=== PATIENT | female | born 1945 | race Caucasian/White ===

== ENCOUNTER → 2019-04-02 | Outpatient (CLI) | payer MEDICARE, OTHER ==
--- NOTE | 2019-04-02 08:59 | Diagnostic Imaging Report ---
Indication: Followup pneumonia. Time of exam: 8:45 AM Correlation is made with prior study 10/28/2013. The heart size is stable. There is a rounded density in the right upper lobe. This most likely represents granuloma seen on prior outside CT chest studies. There is some residual infiltrate in the left base as well small left effusion. Right lung is clear of acute infiltrates. There is o pneumothorax. Impression: Mild left basilar infiltrate and small left effusion. Dictated by: Dictated on workstation # [id number]
== END ==
LOC: RAD 08:33
PROVIDERS: ATTEND Nurse Practitioner Family
DX: J90 Pleural effusion, not elsewhere classified (principal); R91.8 Other nonspecific abnormal finding of lung field
CPT/HCPCS: 71046

== ENCOUNTER 2019-04-16 13:50 | Inpatient (IN) | payer MEDICARE, OTHER ==
[2019-04-16] VITALS (8 sets, daily range): BP systolic 104–138; BP diastolic 49–75
[~2019-04-16] VITALS: Ht 170.2 cm; Wt 76.5 kg
--- OUTSIDE RECORDS SUMMARY | 2019-04-16 13:57 | XMS REPORT | CCD ---
Author Author KYLER GALVIN Organization Unknown Address [address] [facility] [address] [place] [address] Care Team Providers Care Sustainable Systems Analyst Name Role Phone DIXIE BAEZ MD Attphys Allergies Allergy Code Allergy Type Reaction Status No Known Drug Allergies 0 Drug allergy Active Active Medications Unknown or Not Available. Problems Unknown or Not Available. Procedures Procedure Code Procedure Type Date Extracapsular cataract extraction, insertion of intraocular lens prosthesi 87977 CPT 07/02/2016 Results Unknown or Not Available. Function Status Unknown or Not Available. History of Immunizations Unknown or Not Available. Plan of Treatment Unknown or Not Available. Social History Smoking Status Code Start Date End Date Never smoker [id number] Vital Signs Unknown or Not Available. Function Status Unknown or Not Available. Goals Unknown or Not Available. ASSESSMENTS Unknown or Not Available. Health Concerns Section Unknown or Not Available.
--- OUTSIDE RECORDS SUMMARY | 2019-04-16 13:57 | XMS REPORT | CCD ---
Author Author KYLER GALVIN Organization Unknown Address [address] [facility] [place] [address] Care Team Providers Care Director Of Food And Beverage Services Name Role Phone SHARRI COELHO DO Attphys Allergies Allergy Code Allergy Type Reaction Status No Known Drug Allergies 0 Drug allergy Active Active Medications Unknown or Not Available. Problems Unknown or Not Available. Procedures Procedure Code Procedure Type Date THORACIC SPINE 3 VIEW (W/SWIMMERS) [id number] SNOMED CT 05/27/2017 Results Unknown or Not Available. Encounters Encounter Diagnosis Diagnosis Code Start Date Muscle spasm of back [id number] 05/27/2017 Function Status Unknown or Not Available. History of Immunizations Immunization Code Date Influenza, high dose seasonal 135 07/27/2015 Influenza, high dose seasonal 135 07/04/2016 Influenza, high dose seasonal 135 06/17/2017 Plan of Treatment Unknown or Not Available. Social History Smoking Status Code Start Date End Date Never smoker [id number] Vital Signs Unknown or Not Available. Function Status Unknown or Not Available. Goals Unknown or Not Available. ASSESSMENTS Unknown or Not Available. Health Concerns Section Unknown or Not Available.
--- OUTSIDE RECORDS SUMMARY | 2019-04-16 13:58 | XMS REPORT ---
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 Role Phone Arielle Gomez PCP Melisa Ball PreferredProvider Allergies and Adverse Reactions Name Reaction Notes No known drug allergy Plan of Treatment Planned Activity Comments Planned Date Planned Time Plan/Goal US SOFT TISSUES HEAD AND NECK 01/13/2018 12:[address] NECK SOFT TISSUE W/CONTRAST 01/13/2018 12:[address] ABD AND PELVIS W/CONTRAST 06/25/2018 12:00 AM Medications Active Name Start Date Estimated Completion Date SIG Comments red yeast rice 600 mg oral tablet berberine 300 mg twice daily intestinal sooth and build three times a day n magnesium 250 mg oral tablet take 1 tablet by oral route 4 times a day gabapentin 300 mg oral capsule 09/22/2018 TAKE 1 CAPSULE BY ORAL ROUTE 3 TIMES A DAY FOR 90 DAYS pantoprazole 40 mg oral tablet,delayed release (DR/EC) 01/05/2019 TAKE 1 TABLET (40 MG) BY ORAL ROUTE 2 TIMES PER DAY FOR 30 DAYS diclofenac sodium 75 mg oral tablet,delayed release (DR/EC) 01/26/2019 TAKE 1 TABLET (75 MG) BY ORAL ROUTE 2 TIMES PER DAY FOR 30 DAYS ProAir HFA 90 mcg/actuation inhalation HFA aerosol inhaler 03/25/2019 inhale 1 puff (90 mcg) by inhalation route every 6 hours as needed atorvastatin 40 mg oral tablet 04/03/2019 TAKE 1 TABLET (40 MG) BY ORAL ROUTE ONCE DAILY AT BEDTIME FOR 90 DAYS hydrochlorothiazide 25 mg oral tablet 04/03/2019 TAKE 1 TABLET (25 MG) BY ORAL ROUTE ONCE DAILY hydrocodone-acetaminophen 5-325 mg oral tablet 04/15/2019 take 1 tablet by oral route every 6 hours as needed for pain Name Start Date Expiration Date SIG Comments Requip 0.5 mg oral tablet 01/17/2016 02/16/2016 take 1-2 tablets by oral route once a day (at bedtime) for 30 days cyclobenzaprine 10 mg oral tablet 12/11/2016 take 1 tablet by oral route once a day (at bedtime) hydrocodone-acetaminophen 5-325 mg oral tablet 12/11/2016 take 1 tablet by oral route every 6 hours as needed for pain clindamycin HCl 300 mg oral capsule 01/14/2018 01/21/2018 take 1 capsule (300 mg) by oral route every 6 hours for 7 days clindamycin HCl 300 mg oral capsule 03/25/2018 04/01/2018 take 1 capsule (300 mg) by oral route every 6 hours for 7 days terbinafine HCl 250 mg oral tablet 04/11/2018 07/10/2018 take 1 tablet (250 mg) by oral route once daily for 30 days mupirocin 2 % topical ointment 01/05/2019 apply a small amount to the affected area by topical route 3 times per day Bactrim DS 800-160 mg oral tablet 01/05/2019 01/12/2019 take 1 tablet by oral route every 12 hours for 7 days Levaquin 500 mg oral tablet 03/25/2019 take 1 tablet (500 mg) by oral route once daily for day 1 then 250mg daily x6 days Discontinued Name Start Date Discontinued Date SIG Comments meloxicam 15 mg oral tablet take 1 tablet (15 mg) by oral route once daily atorvastatin 10 mg oral tablet 12/30/2015 take 1 tablet (10 mg) by oral route once daily pramipexole 0.125 mg oral tablet 10/19/2015 12/30/2015 3 TABS PO NIGHTLY,X30 DAYS Lipitor 40 mg oral tablet 01/05/2016 take 1 tablet (40 mg) by oral route once daily meloxicam 15 mg oral tablet 01/30/2016 1 TAB PO DAILY Lipitor 40 mg oral tablet 06/08/2016 TAKE 1 TABLET (40 MG) BY ORAL ROUTE ONCE DAILY atenolol 25 mg oral tablet 10/01/2016 03/08/2017 TAKE 1 TABLET (25 MG) BY ORAL ROUTE ONCE DAILY lidocaine 5 % topical adhesive patch,medicated 12/24/2016 04/05/2017 apply 1 patch by transdermal route once daily (May wear up to 12hours.) Lipitor 40 mg oral tablet 03/04/2017 06/25/2018 TAKE 1 TABLET (40 MG) BY ORAL ROUTE ONCE DAILY she does not take a stain anymore phentermine 37.5 mg oral tablet 03/08/2017 04/05/2017 take one-half tablet (18.75 mg) by oral route once daily before breakfast atenolol 25 mg oral tablet 03/22/2017 04/05/2017 TAKE 1 TABLET (25 MG) BY ORAL ROUTE ONCE DAILY low bp, low HR meloxicam 15 mg oral tablet 04/02/2017 11/05/2017 1 TAB PO DAILY baclofen 10 mg oral tablet 07/08/2017 12/20/2017 take 1 tablet by oral route daily as needed Xanax 0.25 mg oral tablet 09/03/2017 12/20/2017 take 1 tablet by oral route BID PRN metformin 500 mg oral tablet 12/20/2017 01/13/2018 TAKE 1 TABLET (500 MG) BY ORAL ROUTE 2 TIMES PER DAY WITH MORNING AND EVENING MEALS FOR 30 DAYS Zetia 10 mg oral tablet 01/02/2019 03/25/2019 TAKE 1 TABLET (10 MG) BY ORAL ROUTE ONCE DAILY FOR 90 DAYS Problem List Description Status Onset Hypertension Active 12/30/2015 Type 2 diabetes mellitus without complication Active 01/06/2016 Hyperlipidemia, unspecified Active 01/06/2016 Arthritis Active 06/19/2016 Neuropathy Active 06/19/2016 Mixed hyperlipidemia Active 04/05/2017 Essential hypertension Active 04/05/2017 Vital Signs Date Time BP-Sys(mm[Hg] BP-Eden(mm[Hg]) HR(bpm) RR(rpm) Temp WT HT HC BMI BSA BMI Percentile O2 Sat(%) 04/15/2019 5:05:00 PM 140 mmHg 60 mmHg 70 bpm 18 rpm 98.1 F 167.375 lbs 67 in 26.2144 kg/m 1.8944 m 97 % 03/25/2019 1:20:00 PM 132 mmHg 72 mmHg 58 bpm 18 rpm 98.1 F 169 lbs 67 in 26.47 kg/m2 1.90 m2 96 % 01/05/2019 9:36:00 AM 120 mmHg 60 mmHg 60 bpm 18 rpm 98.2 F 176 lbs 67 in 27.5652 kg/m 1.9426 m 96 % 12/22/2018 10:02:00 AM 120 mmHg 52 mmHg 50 bpm 18 rpm 97.7 F 176.125 lbs 67 in 27.58 kg/m2 1.94 m2 99 % 10/09/2018 10:13:00 AM 130 mmHg 72 mmHg 57 bpm 18 rpm 97.7 F 176 lbs 67 in 27.5652 kg/m 1.9426 m 97 % 07/25/2018 10:55:00 AM 132 mmHg 76 mmHg 48 bpm 18 rpm 97.4 F 174 lbs 67 in 27.25 kg/m2 1.93 m2 97 % 06/25/2018 11:36:00 AM 135 mmHg 76 mmHg 63 bpm 18 rpm 98.1 F 171.125 lbs 67 in 26.8017 kg/m 1.9156 m 95 % 04/11/2018 11:08:00 AM 126 mmHg 72 mmHg 53 bpm 18 rpm 97.7 F 169 lbs 67 in 26.47 kg/m2 1.90 m2 97 % 03/28/2018 1:55:00 PM 177 mmHg 82 mmHg 48 bpm 18 rpm 97.5 F 172.25 lbs 67 in 26.9779 kg/m 1.9218 m 97 % 03/25/2018 8:07:00 AM 121 mmHg 62 mmHg 52 bpm 18 rpm 97.9 F 172.25 lbs 67 in 26.98 kg/m2 1.92 m2 97 % 01/14/2018 10:05:00 AM 136 mmHg 74 mmHg 54 bpm 18 rpm 98.9 F 171 lbs 67 in 26.7821 kg/m 1.9149 m 96 % 01/13/2018 1:28:00 PM 126 mmHg 68 mmHg 63 bpm 18 rpm 97.7 F 171.375 lbs 67 in 26.84 kg/m2 1.92 m2 96 % 12/20/2017 8:06:00 AM 134 mmHg 82 mmHg 51 bpm 16 rpm 96.6 F 174.125 lbs 67 in 27.2716 kg/m 1.9323 m 95 % 10/17/2017 9:26:00 AM 124 mmHg 70 mmHg 66 bpm 18 rpm 97.2 F 175 lbs 67 in 27.41 kg/m2 1.94 m2 97 % 09/03/2017 1:13:00 PM 132 mmHg 68 mmHg 58 bpm 16 rpm 97.6 F 173 lbs 67 in 27.0954 kg/m 1.926 m 96 % 06/04/2017 9:01:00 AM 121 mmHg 84 mmHg 55 bpm 16 rpm 97.3 F 171.375 lbs 67 in 26.84 kg/m2 1.92 m2 97 % 04/05/2017 9:32:00 AM 134 mmHg 70 mmHg 79 bpm 18 rpm 97.6 F 168.25 lbs 67 in 26.3514 kg/m 1.8994 m 97 % 03/08/2017 8:55:00 AM 108 mmHg 70 mmHg 46 bpm 16 rpm 96.8 F 169 lbs 67 in 26.47 kg/m2 1.90 m2 97 % 12/24/2016 8:56:00 AM 120 mmHg 70 mmHg 52 bpm 18 rpm 97 F 172.375 lbs 67 in 26.9975 kg/m 1.9225 m 96 % 12/11/2016 2:35:00 PM 132 mmHg 62 mmHg 56 bpm 18 rpm 98.4 F 174.125 lbs 67 in 27.27 kg/m2 1.93 m2 96 % 10/08/2016 9:10:00 AM 122 mmHg 64 mmHg 48 bpm 18 rpm 97.9 F 174.5 lbs 67 in 27.3303 kg/m 1.9343 m 96 % 06/19/2016 3:15:00 PM 124 mmHg 62 mmHg 50 bpm 18 rpm 96.1 F 187.25 lbs 67 in 29.33 kg/m2 2.00 m2 96 % 02/06/2016 2:13:00 PM 124 mmHg 64 mmHg 83 bpm 18 rpm 97.8 F 191.5 lbs 67 in 29.9928 kg/m 2.0264 m 97 % 01/05/2016 2:09:00 PM 130 mmHg 68 mmHg 62 bpm 97 F 193 lbs 67 in 30.23 kg/m2 2.03 m2 95 % 01/02/2016 10:38:00 AM 134 mmHg 70 mmHg 60 bpm 16 rpm 98.2 F 193 lbs 67 in 30.2278 kg/m 2.0343 m 96 % 12/30/2015 8:47:00 AM 124 mmHg 76 mmHg 57 bpm 17 rpm 97.4 F 194 lbs 67 in 30.38 kg/m2 2.04 m2 97 % 07/25/2015 2:07:00 PM 134 mmHg 78 mmHg 58 bpm 18 rpm 98.1 F 192 lbs 97 % 03/11/2015 9:09:00 AM 128 mmHg 62 mmHg 48 bpm 20 rpm 97.8 F 190 lbs 67 in 29.76 kg/m2 2.0184 m 95 % 02/14/2015 10:47:00 AM 138 mmHg 62 mmHg 48 bpm 18 rpm 98.3 F 187.4 lbs 67 in 29.3507 kg/m 2.00 m2 94 % 11/25/2014 9:58:00 AM 130 mmHg 90 mmHg 60 bpm 16 rpm 96.5 F 192.125 lbs 67 in 30.09 kg/m2 2.0297 m 96 % Social History Name Description Comments Tobacco Former smoker 07/25/2018 - 02/06/2016 - 20 years Alcohol Light History of Procedures Date Ordered Description Order Status 01/02/2016 12:00 AM MAMMOGRAM BOTH BREASTS Reviewed 12/30/2015 12:00 AM COMPLETE CBC W/AUTO DIFF WBC Reviewed 12/30/2015 12:00 AM COMPREHEN METABOLIC PANEL Reviewed 12/30/2015 12:00 AM LIPID PANEL Reviewed 12/30/2015 12:00 AM ASSAY THYROID STIM HORMONE Reviewed 01/02/2016 12:00 AM GLYCOSYLATED HEMOGLOBIN TEST Reviewed 02/06/2016 12:00 AM Diabetic Education Consult Reviewed 05/14/2016 12:00 AM GLYCOSYLATED HEMOGLOBIN TEST Reviewed 05/14/2016 12:00 AM LIPID PANEL Reviewed 05/14/2016 12:00 AM COMPREHEN METABOLIC PANEL Reviewed 10/08/2016 12:00 AM RADEX HAND MINIMUM 3 VIEWS Reviewed 12/11/2016 12:00 AM Toradol 60 Mg Injection Reviewed 12/24/2016 12:00 AM CYTOPATH C/V THIN LAYER Reviewed 12/24/2016 12:00 AM Pap Specimen Handling - Medicare Reviewed 12/24/2016 12:00 AM MAMMOGRAM BOTH BREASTS Reviewed 12/24/2016 12:00 AM DXA BONE DENSITY AXIAL Reviewed 04/05/2017 12:00 AM COMPLETE CBC W/AUTO DIFF WBC Reviewed 04/05/2017 12:00 AM COMPREHEN METABOLIC PANEL Reviewed 04/05/2017 12:00 AM LIPID PANEL Reviewed 06/04/2017 12:00 AM Toradol 60 Mg Injection Reviewed 10/17/2017 12:00 AM Physical Therapy Consult Reviewed 12/20/2017 12:00 AM MAMMOGRAPHY SCREENING, BILATERAL Reviewed 01/13/2018 12:00 AM COMPLETE CBC W/AUTO DIFF WBC Reviewed 01/13/2018 12:00 AM COMPREHEN METABOLIC PANEL Reviewed 01/13/2018 12:00 AM C-REACTIVE PROTEIN Reviewed 01/13/2018 12:[address] MAXILLOFACIAL W/DYE Reviewed 03/28/2018 12:00 AM COMPLETE CBC W/AUTO DIFF WBC Reviewed 03/28/2018 12:00 AM METABOLIC PANEL TOTAL CA Reviewed 03/28/2018 12:00 AM ASSAY OF LACTIC ACID Reviewed 06/25/2018 12:00 AM LIPID PANEL Reviewed 06/25/2018 12:00 AM GLYCOSYLATED HEMOGLOBIN TEST Reviewed 06/25/2018 12:00 AM COMPREHEN METABOLIC PANEL Reviewed 12/22/2018 12:00 AM COMPREHEN METABOLIC PANEL Returned 12/22/2018 12:00 AM LIPID PANEL Returned 12/22/2018 12:00 AM MAMMOGRAPHY SCREENING, BILATERAL Returned 12/22/2018 12:00 AM DXA BONE DENSITY AXIAL Returned 03/25/2019 12:00 AM COMPLETE CBC W/AUTO DIFF WBC Returned 03/25/2019 12:00 AM COMPREHEN METABOLIC PANEL Returned 03/25/2019 12:00 AM C-REACTIVE PROTEIN Returned 03/25/2019 12:00 AM CHEST X-RAY 2VW FRONTAL&LATL Returned 03/25/2019 12:00 AM URINALYSIS AUTO W/SCOPE Returned 04/15/2019 12:00 AM THER/PROPH/DIAG INJ SC/IM Reviewed 11/25/2014 12:00 AM Orthopedic Consult Reviewed 02/14/2015 12:00 AM STREP A ASSAY W/OPTIC Reviewed 02/14/2015 12:00 AM CULTURE SCREEN ONLY Reviewed 03/11/2015 12:00 AM COMPREHEN METABOLIC PANEL Reviewed 03/11/2015 12:00 AM LIPID PANEL Reviewed 03/11/2015 12:00 AM COMPLETE CBC W/AUTO DIFF WBC Reviewed Results Summary Date and Description Results 02/14/2015 1:32 PM STREP SCREEN NEGATIVE 03/11/2015 9:50 AM WBC 7.9 RBC 4.49 HGB 14.10 g/dLHCT 41.90 %MCV 93.0 fLMCH 31.40 pgMCHC 33.70 g/dLRDW SD 47 RDW CV 13.80 %MPV 10.50 fLPLT 237 NRBC# 0.00 NRBC% 0.0 %NEUT 51.10 %%LYMP 39.70 %%MONO 5.20 %%EOS 3.20 %%BASO 0.80 %#NEUT 4.01 #LYMP 3.12 #MONO 0.41 #EOS 0.25 #BASO 0.06 MANUAL DIFF NOT IND GLUCOSE 107.0 mg/dLSODIUM 143.0 mmol/LPOTASSIUM 3.90 mmol/LCHLORIDE 102.0 mmol/LCO2 28.0 mmol/LBUN 13.0 mg/dLCREATININE 0.80 mg/dLSGOT/AST 28.0 IU/LSGPT/ALT 53.0 IU/LALK PHOS 25.0 IU/LTOTAL PROTEIN 6.70 g/dLALBUMIN 4.30 g/dLTOTAL BILI 0.80 mg/dLCALCIUM 9.80 mg/dLAGE 69 GFR NonAA 72 GFR AA 87 eGFR >60 mL/min/1.73 m2eGFR AA* >60 TRIGLYCERIDES 201.0 mg/dLCHOLESTEROL 142.0 mg/dLHDL 48.0 mg/dLTOT CHOL/HDL 3.0 LDL (CALC) 54.0 mg/dL 01/02/2016 9:25 AM WBC 7.4 RBC 4.67 HGB 14.20 g/dLHCT 42.50 %MCV 91.0 fLMCH 30.40 pgMCHC 33.40 g/dLRDW SD 45 RDW CV 13.60 %MPV 10.20 fLPLT 251 NRBC# 0.00 NRBC% 0.0 %NEUT 53.0 %%LYMP 38.30 %%MONO 5.0 %%EOS 2.70 %%BASO 0.90 %#NEUT 3.90 #LYMP 2.82 #MONO 0.37 #EOS 0.20 #BASO 0.07 MANUAL DIFF NOT IND TRIGLYCERIDES 286.0 mg/dLCHOLESTEROL 232.0 mg/dLHDL 43.0 mg/dLTOT CHOL/HDL 5.4 LDL (CALC) 132.0 mg/dLGLUCOSE 132.0 mg/dLSODIUM 141.0 mmol/LPOTASSIUM 3.70 mmol/LCHLORIDE 103.0 mmol/LCO2 25.0 mmol/LBUN 19.0 mg/dLCREATININE 0.90 mg/dLSGOT/AST 25.0 IU/LSGPT/ALT 33.0 IU/LALK PHOS 20.0 IU/LTOTAL PROTEIN 6.90 g/dLALBUMIN 4.40 g/dLTOTAL BILI 0.60 mg/dLCALCIUM 9.70 mg/dLAGE 70 GFR NonAA 62 GFR AA 75 eGFR >60 mL/min/1.73 m2eGFR AA* >60 TSH 2.140 uIU/mLHemoglobin A1c 7.30 %Estim. Avg Glu (eAG) 163 05/15/2016 8:30 AM HGB A1C 5.80 %Est Avg Glucose 119.8 mg/dLGLUCOSE 95.0 mg/dLSODIUM 142.0 mmol/LPOTASSIUM 4.20 mmol/LCHLORIDE 102.0 mmol/LCO2 27.0 mmol/LBUN 17.0 mg/dLCREATININE 0.90 mg/dLSGOT/AST 16.0 IU/LSGPT/ALT 24.0 IU/LALK PHOS 27.0 IU/L TOTAL PROTEIN 6.10 g/dLALBUMIN 4.20 g/dLTOTAL BILI 0.60 mg/dLCALCIUM 9.60 mg/dLAGE 70 GFR NonAA 62 GFR AA 75 eGFR >60 mL/min/1.73 m2eGFR AA* >60 TRIGLYCERIDES 195.0 mg/dLCHOLESTEROL 115.0 mg/dLHDL 40.0 mg/dLTOT CHOL/HDL 2.9 LDL (CALC) 36.0 mg/dL 04/18/2017 8:08 AM GLUCOSE 97.0 mg/dLSODIUM 142.0 mmol/LPOTASSIUM 4.20 mmol/LCHLORIDE 104.0 mmol/LCO2 28.0 mmol/LBUN 14.0 mg/dLCREATININE 0.80 mg/dLSGOT/AST 23.0 IU/LSGPT/ALT 39.0 IU/LALK PHOS 27.0 IU/LTOTAL PROTEIN 6.80 g/dLALBUMIN 4.40 g/dLTOTAL BILI 0.50 mg/dLCALCIUM 10.10 mg/dLAGE 71 GFR NonAA 71 GFR AA 86 eGFR >60 mL/min/1.73 m2eGFR AA* >60 TRIGLYCERIDES 158.0 mg/dLCHOLESTEROL 140.0 mg/dLHDL 50.0 mg/dLTOT CHOL/HDL 2.8 LDL (CALC) 58.0 mg/dLWBC 8.4 RBC 4.57 HGB 13.80 g/dLHCT 41.20 %MCV 90.0 fLMCH 30.20 pgMCHC 33.50 g/dLRDW SD 42 RDW CV 12.90 %MPV 10.10 fLPLT 250 NRBC# 0.00 NRBC% 0.0 %NEUT 43.10 %%LYMP 47.30 %%MONO 5.70 %%EOS 2.80 %%BASO 0.90 %#NEUT 3.63 #LYMP 3.99 #MONO 0.48 #EOS 0.24 #BASO 0.08 MANUAL DIFF NOT IND 08/12/2017 12:00 AM Dialated Eye Exam- Diabetic Done 01/13/2018 2:10 PM WBC 11.0 RBC 4.00 HGB 12.60 g/dLHCT 37.80 %MCV 95.0 fLMCH 31.50 pgMCHC 33.30 g/dLRDW SD 46 RDW CV 13.20 %MPV 9.50 fLPLT 255 NRBC# 0.00 NRBC% 0.0 %NEUT 66.60 %%LYMP 24.70 %%MONO 6.0 %%EOS 1.70 %%BASO 0.70 %#NEUT 7.32 #LYMP 2.72 #MONO 0.66 #EOS 0.19 #BASO 0.08 MANUAL DIFF NOT IND C REACTIVE PROTEIN 23.0 mg/LGLUCOSE 95.0 mg/dLSODIUM 141.0 mmol/LPOTASSIUM 3.70 mmol/LCHLORIDE 103.0 mmol/LCO2 26.0 mmol/LBUN 19.0 mg/dLCREATININE 1.0 mg/dLSGOT/AST 15.0 IU/LSGPT/ALT 24.0 IU/LALK PHOS 25.0 IU/LTOTAL PROTEIN 7.0 g/dLALBUMIN 4.40 g/dLTOTAL BILI 0.70 mg/dLCALCIUM 9.70 mg/dLAGE 72 GFR NonAA 55 GFR AA 67 eGFR 55 eGFR AA* >60 03/28/2018 3:10 PM LACTIC ACID 1.3 GLUCOSE 89 SODIUM 140 POTASSIUM 4.5 CHLORIDE 101.0 mmol/LCO2 28 BUN 19.0 mg/dLCREATININE 1.10 mg/dLCALCIUM 10.10 mg/dLAGE 72 GFR NonAA 49 GFR AA 59 eGFR 49 eGFR AA* 59 WBC 9.3 RBC 4.22 HGB 13.0 g/dLHCT 40.20 %MCV 95.0 fLMCH 30.80 pgMCHC 32.30 g/dLRDW SD 45 fLRDW CV 13.0 %MPV 10.20 fLPLT 243 NRBC# 0.00 NRBC% 0.0 %NEUT 63.2 %LYMP 28.8 %MONO 6.6 %EOS 0.8 %BASO 0.4 #NEUT 5.86 #LYMP 2.67 #MONO 0.61 #EOS 0.07 #BASO 0.04 MANUAL DIFF NOT IND 06/27/2018 8:10 AM TRIGLYCERIDES 338 CHOLESTEROL 285.0 mg/dLHDL 47 TOT CHOL/HDL 6.1 LDL (CALC) 170 GLUCOSE 98 SODIUM 141 POTASSIUM 3.8 CHLORIDE 102.0 mmol/LCO2 29 BUN 19.0 mg/dLCREATININE 1.20 mg/dLSGOT/AST 18 SGPT/ALT 23 ALK PHOS 26 TOTAL PROTEIN 7.6 ALBUMIN 4.5 TOTAL BILI 0.5 CALCIUM 10.30 mg/dLAGE 72 GFR NonAA 44 GFR AA 53 eGFR 44 eGFR AA* 53 HGB A1C 5.60 %Est Avg Glucose 114.0 09/10/2018 10:17 AM Falls in last 6 months? No Unsteady or worry about falling? No Fall Risk Assessment Not At Risk History Of Immunizations Not available. History of Past Illness Name Date of Onset Comments Hypertension Sleep apnea with use of continuous positive airway pressure (CPAP) Endometriosis Ulcerative colitis Hypertension 12/30/2015 Type 2 diabetes mellitus without complication 01/06/2016 Hyperlipidemia, unspecified 01/06/2016 Arthritis 06/19/2016 Neuropathy 06/19/2016 Mixed hyperlipidemia 04/05/2017 Essential hypertension 04/05/2017 Hypertension Nov 25 2014 10:04AM Hyperlipidemia Nov 25 2014 10:04AM Hip pain Nov 25 2014 10:04AM Labral tear of hip, degenerative Nov 25 2014 10:04AM Ulcerative colitis Nov 25 2014 10:04AM Sore throat Feb 14 2015 10:48AM Exposure to strep throat Feb 14 2015 10:48AM Essential Hypertension Mar 11 2015 9:13AM Hyperlipidemia Mar 11 2015 9:13AM Bradycardia Mar 11 2015 9:13AM UC (ulcerative colitis) Mar 11 2015 9:13AM Lung mass Mar 11 2015 9:13AM Painful skin lesion Jul 25 2015 2:08PM Skin tag Jul 25 2015 2:08PM Skin tag Jul 25 2015 5:28PM Hypertension Dec 30 2015 8:50AM Restless leg Dec 30 2015 8:50AM FLORINA (obstructive sleep apnea) Dec 30 2015 8:50AM Arthritis Dec 30 2015 8:50AM Fatigue, unspecified type Dec 30 2015 8:50AM Encounter for screening mammogram for breast cancer Jan 02 2016 10:42AM Hyperglycemia Jan 02 2016 12:24PM Type 2 diabetes mellitus without complication Jan 05 2016 2:12PM Hypertension Jan 05 2016 2:12PM Hyperlipidemia, unspecified Jan 05 2016 2:12PM Type 2 diabetes mellitus without complication Feb 06 2016 2:15PM Hypertension May 14 2016 3:20PM Diabetes mellitus May 14 2016 3:20PM Hyperlipemia May 14 2016 3:20PM Type 2 diabetes mellitus without complication Jun 19 2016 3:15PM Arthritis Jun 19 2016 3:15PM Neuropathy Jun 19 2016 3:15PM Hand pain, left Oct 08 2016 9:12AM Acute bilateral thoracic back pain Dec 11 2016 2:38PM Routine gynecological examination Dec 24 2016 8:58AM Encounter for screening mammogram for breast cancer Dec 24 2016 8:58AM Acute midline low back pain without sciatica Dec 24 2016 8:58AM Post menopausal syndrome Dec 24 2016 8:58AM Weight gain Mar 08 2017 8:57AM Arthritis Mar 08 2017 8:57AM Mixed hyperlipidemia Mar 08 2017 8:57AM Essential hypertension Apr 05 2017 9:37AM Type 2 diabetes mellitus without complication Apr 05 2017 9:37AM Mixed hyperlipidemia Apr 05 2017 9:37AM Arthritis Apr 05 2017 9:37AM Neck pain Jun 04 2017 9:03AM Acute right-sided thoracic back pain Jun 04 2017 9:03AM Situational anxiety Sep 03 2017 1:14PM Pain in thoracic spine Oct 17 2017 9:29AM Other chronic pain Oct 17 2017 9:29AM Breast cancer screening Dec 20 2017 8:08AM Left Facial swelling Jan 13 2018 1:29PM Left Jaw pain Jan 13 2018 1:29PM Left Neck swelling Jan 13 2018 1:29PM Left facial swelling Jan 13 2018 2:17PM Left Jaw pain Jan 13 2018 2:17PM Parotitis, acute Jan 14 2018 10:07AM Jaw pain Mar 25 2018 8:09AM Fatigue Mar 28 2018 1:58PM Infection Mar 28 2018 1:58PM Onychomycosis Apr 11 2018 11:15AM Parotitis Mar 28 2018 1:58PM Diabetes mellitus, type II Jun 25 2018 11:47AM Pure hypercholesterolemia Jun 25 2018 11:47AM Essential Hypertension Jun 25 2018 11:47AM Generalized abdominal pain Jun 25 2018 11:47AM Chronic constipation Jul 25 2018 10:57AM Lower abdominal pain Jul 25 2018 10:57AM GERD without esophagitis Oct 09 2018 10:16AM Essential hypertension Oct 09 2018 10:16AM Mixed hyperlipidemia Oct 09 2018 10:16AM Essential hypertension Dec 22 2018 10:04AM Mixed hyperlipidemia Dec 22 2018 10:04AM Neuropathy Dec 22 2018 10:04AM Breast cancer screening Dec 22 2018 10:04AM Menopausal symptoms Dec 22 2018 10:04AM Skin irritation Jan 05 2019 9:38AM Left upper quadrant pain Mar 25 2019 1:23PM Chest pain Mar 25 2019 1:23PM Shortness Of Breath Mar 25 2019 1:23PM Constipation Mar 25 2019 1:23PM Pneumonia Mar 25 2019 1:23PM Pleurisy Apr 15 2019 5:07PM Chest pain Apr 15 2019 5:07PM Payers Insurance Name Company Name Plan Name Plan Number Policy Number Policy Group Number Start Date Medicare RH Medicare RH [id number] N/A [employer] Medicare Supplement [employer] Medicare Supplement [id number] Saturday, 2017 Medicare Part A Medicare Part A [id number] Sunday, 2012 [employer] [id number] Wednesday, 2012 Medicare Part B Medicare Of [place] [id number] N/A Medicare Part A Medicare - Lab/Xray [id number] Sunday, September 16, 2012 Medicare RHC Medicare RHC [id number] N/A [place] [id number] N/A History of Encounters Visit Date Visit Type Provider 04/15/2019 Office visit Arielle Gomez INSTITUTION LIBRARIAN 03/25/2019 Office visit Melisa Ball INSTITUTION LIBRARIAN 01/05/2019 Office visit Melisa Ball INSTITUTION LIBRARIAN 12/22/2018 Office visit Melisa Ball INSTITUTION LIBRARIAN 10/09/2018 Office visit Melisa Ball INSTITUTION LIBRARIAN 10/08/2018 [facility] Tim Jones MD 07/25/[address] Javier Stark MD 06/25/[address] Javier Stark MD 04/11/2018 Office visit Sirena Mendoza INSTITUTION LIBRARIAN 03/28/2018 Office visit Sirena Mendoza INSTITUTION LIBRARIAN 03/25/2018 Office visit Melisa Ball INSTITUTION LIBRARIAN 01/14/2018 Office visit Melisa Ball INSTITUTION LIBRARIAN 01/13/2018 Office visit Melisa Ball INSTITUTION LIBRARIAN 12/20/2017 Office visit Melisa Ball INSTITUTION LIBRARIAN 10/17/2017 Office visit Melisa Walker INSTITUTION LIBRARIAN 09/03/2017 Office visit Melisa Walker INSTITUTION LIBRARIAN 06/04/2017 Office visit Melisa Walker INSTITUTION LIBRARIAN 04/05/2017 Office visit Melisa Walker INSTITUTION LIBRARIAN 03/08/2017 Office visit Melisa Walker INSTITUTION LIBRARIAN 12/24/2016 Office visit 12/24/2016 Office visit Melisa Walker INSTITUTION LIBRARIAN 12/11/2016 Office visit Melisa Walker INSTITUTION LIBRARIAN 10/08/2016 Office visit Melisa Walker INSTITUTION LIBRARIAN 06/19/2016 Office visit Melisa Walker INSTITUTION LIBRARIAN 02/06/2016 Office visit Melisa Walker INSTITUTION LIBRARIAN 01/05/2016 Office visit Melisa Walker INSTITUTION LIBRARIAN 01/02/2016 Office visit 01/02/2016 Office visit Melisa Walker INSTITUTION LIBRARIAN 12/30/2015 Office visit Melisa Quinn INSTITUTION LIBRARIAN 07/25/2015 Office visit Edith Pena INSTITUTION LIBRARIAN 03/11/2015 Office visit Edith Pena INSTITUTION LIBRARIAN 02/14/2015 Office visit Edith Pena INSTITUTION LIBRARIAN 11/25/2014 Office visit Edith Pena INSTITUTION LIBRARIAN
--- OUTSIDE RECORDS SUMMARY | 2019-04-16 13:59 | XMS REPORT ---
Author Author Melisa Ball Organization [facility] Address [address] [place], [place] [id number] Care Team Providers Care Acid Painter Name Role Phone Melisa Ball PCP Melisa Ball PreferredProvider Allergies and Adverse [...] 3 TIMES A DAY FOR 90 DAYS atorvastatin 40 mg oral tablet 10/09/2018 04/07/2019 take 1 tablet (40 mg) by oral route once daily at bedtime for 90 days hydrochlorothiazide 25 mg oral tablet 10/09/2018 TAKE 1 TABLET (25 MG) BY ORAL ROUTE ONCE DAILY mupirocin 2 % topical ointment 01/05/2019 apply a small amount to the affected area by topical route 3 times per day pantoprazole 40 mg oral tablet,delayed release (DR/EC) 01/05/2019 TAKE 1 TABLET (40 MG) BY ORAL ROUTE 2 TIMES PER DAY FOR 30 DAYS diclofenac sodium 75 mg oral tablet,delayed release (DR/EC) 01/26/2019 TAKE 1 TABLET (75 MG) BY ORAL ROUTE 2 TIMES PER DAY FOR 30 DAYS hydrocodone-acetaminophen 5-325 mg oral tablet 03/25/2019 take 1 tablet by oral route every 6 hours as needed for pain Levaquin 500 mg oral tablet 03/25/2019 take 1 tablet (500 mg) by oral route once daily for day 1 then 250mg daily x6 days ProAir HFA 90 mcg/actuation inhalation HFA aerosol inhaler 03/25/2019 inhale 1 puff (90 mcg) by inhalation route every 6 hours as needed Name Start Date Expiration Date SIG Comments [...] oral route once daily for 30 days Bactrim DS 800-160 mg oral tablet 01/05/2019 01/12/2019 take 1 tablet by oral route every 12 hours for 7 days Discontinued Name Start Date Discontinued Date [...] HC BMI BSA BMI Percentile O2 Sat(%) 03/25/2019 1:20:00 PM 132 mmHg 72 mmHg 58 bpm 18 rpm 98.1 F 169 lbs 67 in 26.4689 kg/m 1.9036 m 96 % 01/05/2019 9:36:00 AM 120 mmHg 60 mmHg 60 bpm 18 rpm 98.2 F 176 lbs 67 in 27.57 kg/m2 1.94 m2 96 % 12/22/2018 10:02:00 AM 120 mmHg 52 mmHg 50 bpm 18 rpm 97.7 F 176.125 lbs 67 in 27.5848 kg/m 1.9433 m 99 % 10/09/2018 10:13:00 AM 130 mmHg 72 mmHg 57 bpm 18 rpm 97.7 F 176 lbs 67 in 27.57 kg/m2 1.94 m2 97 % 07/25/2018 10:55:00 AM 132 mmHg 76 mmHg 48 bpm 18 rpm 97.4 F 174 lbs 67 in 27.25 kg/m2 1.9316 m 97 % 06/25/2018 11:36:00 AM 135 mmHg 76 mmHg 63 bpm 18 rpm 98.1 F 171.125 lbs 67 in 26.8017 kg/m 1.92 m2 95 % 04/11/2018 11:08:00 AM 126 mmHg 72 mmHg 53 bpm 18 rpm 97.7 F 169 lbs 67 in 26.47 kg/m2 1.9036 m 97 % 03/28/2018 1:55:00 PM 177 mmHg 82 mmHg 48 bpm 18 rpm 97.5 F 172.25 lbs 67 in 26.9779 kg/m 1.92 m2 97 % 03/25/2018 8:07:00 AM 121 mmHg 62 mmHg 52 bpm 18 rpm 97.9 F 172.25 lbs 67 in 26.98 kg/m2 1.9218 m 97 % 01/14/2018 10:05:00 AM 136 mmHg 74 mmHg 54 bpm 18 rpm 98.9 F 171 lbs 67 in 26.7821 kg/m 1.91 m2 96 % 01/13/2018 1:28:00 PM 126 mmHg 68 mmHg 63 bpm 18 rpm 97.7 F 171.375 lbs 67 in 26.84 kg/m2 1.9169 m 96 % 12/20/2017 8:06:00 AM 134 mmHg 82 mmHg 51 bpm 16 rpm 96.6 F 174.125 lbs 67 in 27.2716 kg/m 1.93 m2 95 % 10/17/2017 9:26:00 AM 124 mmHg 70 mmHg 66 bpm 18 rpm 97.2 F 175 lbs 67 in 27.41 kg/m2 1.9371 m 97 % 09/03/2017 1:13:00 PM 132 mmHg 68 mmHg 58 bpm 16 rpm 97.6 F 173 lbs 67 in 27.0954 kg/m 1.93 m2 96 % 06/04/2017 9:01:00 AM 121 mmHg 84 mmHg 55 bpm 16 rpm 97.3 F 171.375 lbs 67 in 26.84 kg/m2 1.9169 m 97 % 04/05/2017 9:32:00 AM 134 mmHg 70 mmHg 79 bpm 18 rpm 97.6 F 168.25 lbs 67 in 26.3514 kg/m 1.90 m2 97 % 03/08/2017 8:55:00 AM 108 mmHg 70 mmHg 46 bpm 16 rpm 96.8 F 169 lbs 67 in 26.47 kg/m2 1.9036 m 97 % 12/24/2016 8:56:00 AM 120 mmHg 70 mmHg 52 bpm 18 rpm 97 F 172.375 lbs 67 in 26.9975 kg/m 1.92 m2 96 % 12/11/2016 2:35:00 PM 132 mmHg 62 mmHg 56 bpm 18 rpm 98.4 F 174.125 lbs 67 in 27.27 kg/m2 1.9323 m 96 % 10/08/2016 9:10:00 AM 122 mmHg 64 mmHg 48 bpm 18 rpm 97.9 F 174.5 lbs 67 in 27.3303 kg/m 1.93 m2 96 % 06/19/2016 3:15:00 PM 124 mmHg 62 mmHg 50 bpm 18 rpm 96.1 F 187.25 lbs 67 in 29.33 kg/m2 2.0038 m 96 % 02/06/2016 2:13:00 PM 124 mmHg 64 mmHg 83 bpm 18 rpm 97.8 F 191.5 lbs 67 in 29.9928 kg/m 2.03 m2 97 % 01/05/2016 2:09:00 PM 130 mmHg 68 mmHg 62 bpm 97 F 193 lbs 67 in 30.23 kg/m2 2.0343 m 95 % 01/02/2016 10:38:00 AM 134 mmHg 70 mmHg 60 bpm 16 rpm 98.2 F 193 lbs 67 in 30.2278 kg/m 2.03 m2 96 % 12/30/2015 8:47:00 AM 124 mmHg 76 mmHg 57 bpm 17 rpm 97.4 F 194 lbs 67 in 30.38 kg/m2 2.0396 m 97 % 07/25/2015 2:07:00 PM 134 mmHg [...] F 192.125 lbs 67 in 30.09 kg/m2 2.03 m2 96 % Social History Name Description Comments [...] 03/25/2019 12:00 AM URINALYSIS AUTO W/SCOPE Returned 11/25/2014 12:00 AM Orthopedic Consult Reviewed 02/14/2015 [...] NonAA 62 GFR AA 75 eGFR >60 mL/min/1.73meGFR AA* >60 TSH 2.140 uIU/mLHemoglobin A1c 7.30 [...] NonAA 62 GFR AA 75 eGFR >60 mL/min/1.73meGFR AA* >60 TRIGLYCERIDES 195.0 mg/dLCHOLESTEROL 115.0 mg/dLHDL 40.0 mg/dLTOT CHOL/HDL 2.9 LDL (CALC) 36.0 mg/dL 04/18/2017 8:08 AM GLUCOSE 97.0 mg/dLSODIUM 142.0 mmol/LPOTASSIUM 4.20 mmol/LCHLORIDE 104.0 mmol/LCO2 28.0 mmol/LBUN 14.0 mg/dLCREATININE 0.80 mg/dLSGOT/AST 23.0 IU/LSGPT/ALT 39.0 IU/LALK PHOS 27.0 IU/LTOTAL PROTEIN 6.80 g/dLALBUMIN 4.40 g/dLTOTAL BILI 0.50 mg/dLCALCIUM 10.10 mg/dLAGE 71 GFR NonAA 71 GFR AA 86 eGFR >60 mL/min/1.73meGFR AA* >60 TRIGLYCERIDES 158.0 mg/dLCHOLESTEROL 140.0 mg/dLHDL [...] GLUCOSE 89 SODIUM 140 POTASSIUM 4.5 CHLORIDE 101 CO2 28 BUN 19 CREATININE 1.1 CALCIUM 10.1 AGE 72 GFR NonAA 49 GFR AA 59 eGFR 49 eGFR AA* 59 WBC 9.3 RBC 4.22 HGB 13.0 HCT 40.2 MCV 95 MCH 30.8 MCHC 32.3 RDW SD 45 RDW CV 13.0 MPV 10.2 PLT 243 NRBC# 0.00 NRBC% 0.0 %NEUT 63.2 %LYMP 28.8 %MONO 6.6 %EOS 0.8 %BASO 0.4 #NEUT 5.86 #LYMP 2.67 #MONO 0.61 #EOS 0.07 #BASO 0.04 MANUAL DIFF NOT IND 06/27/2018 8:10 AM TRIGLYCERIDES 338 CHOLESTEROL 285 HDL 47 TOT CHOL/HDL 6.1 LDL (CALC) 170 GLUCOSE 98 SODIUM 141 POTASSIUM 3.8 CHLORIDE 102 CO2 29 BUN 19 CREATININE 1.2 SGOT/AST 18 SGPT/ALT 23 ALK PHOS 26 TOTAL PROTEIN 7.6 ALBUMIN 4.5 TOTAL BILI 0.5 CALCIUM 10.3 AGE 72 GFR NonAA 44 GFR AA 53 [...] 2019 1:23PM Pneumonia Mar 25 2019 1:23PM Payers Insurance Name Company Name Plan Name Plan Number Policy Number Policy Group Number Start Date Medicare RHC Medicare RHC [id number] N/A Cigna Medicare Supplement Cigna Medicare Supplement [id number] Saturday, 2017 Medicare Part A Medicare Part A [id number] Sunday, 2012 [employer] [id number] Wednesday, 2012 Medicare Part B Medicare Stephanie Jones [id number] N/A Medicare Part A Medicare - Lab/Xray [id number] Sunday, September 16, 2012 Medicare RHC Medicare RHC [id number] N/A [place] [id number] N/A History of Encounters Visit Date Visit Type Provider 03/25/2019 Office visit Melisa Ball REWIND OPERATOR 01/05/2019 Office visit Melisa Ball REWIND OPERATOR 12/22/2018 Office visit Melisa Ball REWIND OPERATOR 10/09/2018 Office visit Melisa Ball REWIND OPERATOR 10/08/2018 [facility] Tim Jones MD 07/25/[address] Javier Stark MD 06/25/[address] Javier Stark MD 04/11/2018 Office visit Sirena Mendoza REWIND OPERATOR 03/28/2018 Office visit Sirena Mendoza REWIND OPERATOR 03/25/2018 Office visit Melisa Ball REWIND OPERATOR 01/14/2018 Office visit Melisa Ball REWIND OPERATOR 01/13/2018 Office visit Melisa Ball REWIND OPERATOR 12/20/2017 Office visit Melisa Ball REWIND OPERATOR 10/17/2017 Office visit Melisa Ball REWIND OPERATOR 09/03/2017 Office visit Melisa Ball REWIND OPERATOR 06/04/2017 Office visit Melisa Ball REWIND OPERATOR 04/05/2017 Office visit Melisa Ball REWIND OPERATOR 03/08/2017 Office visit Melisa Ball REWIND OPERATOR 12/24/2016 Office visit 12/24/2016 Office visit Melisa Ball REWIND OPERATOR 12/11/2016 Office visit Melisa Ball REWIND OPERATOR 10/08/2016 Office visit Melisa Ball REWIND OPERATOR 06/19/2016 Office visit Melisa Ball REWIND OPERATOR 02/06/2016 Office visit Melisa Ball REWIND OPERATOR 01/05/2016 Office visit Melisa Ball REWIND OPERATOR 01/02/2016 Office visit 01/02/2016 Office visit Melisa Ball REWIND OPERATOR 12/30/2015 Office visit Melisa Ball REWIND OPERATOR 07/25/2015 Office visit Edith Pena REWIND OPERATOR 03/11/2015 Office visit Edith Pena REWIND OPERATOR 02/14/2015 Office visit Edith Pena REWIND OPERATOR 11/25/2014 Office visit Edith Pena REWIND OPERATOR
--- OUTSIDE RECORDS SUMMARY | 2019-04-16 14:00 | XMS REPORT ---
Author Author Melisa Ball Organization [facility] Address [address] [place], [place] [id number] Care Team Providers Care Back Sizer Name Role Phone Melisa Ball PCP Melisa [...] 2019 1:23PM Constipation Mar 25 2019 1:23PM Payers Insurance Name Company Name Plan Name Plan Number Policy Number Policy Group Number Start Date Medicare RHC Medicare RHC [id number] N/A Cigna Medicare Supplement Cigna Medicare Supplement [id number] Saturday, 2017 Medicare Part A Medicare Part A [id number] Sunday, 2012 [employer] [id number] Wednesday, 2012 Medicare Part B Medicare Stephanie Jones [id number] N/A Medicare Part A Medicare - Lab/Xray [id number] Sunday, September 16, 2012 Medicare RHC Medicare RHC [id number] N/A [place] [employer] [place] [employer] [id number] N/A History of Encounters Visit Date Visit Type Provider 03/25/2019 Office visit Melisa Ball MANAGER IN HOME 01/05/2019 Office visit Melisa Ball MANAGER IN HOME 12/22/2018 Office visit Melisa Ball MANAGER IN HOME 10/09/2018 Office visit Melisa Ball MANAGER IN HOME 10/08/2018 [facility] Tim Jones MD 07/25/[address] Javier Stark MD 06/25/[address] Javier Stark MD 04/11/2018 Office visit Sirena Mendoza MANAGER IN HOME 03/28/2018 Office visit Sirena Mendoza MANAGER IN HOME 03/25/2018 Office visit Melisa Ball MANAGER IN HOME 01/14/2018 Office visit Melisa Ball MANAGER IN HOME 01/13/2018 Office visit Melisa Ball MANAGER IN HOME 12/20/2017 Office visit Melisa Ball MANAGER IN HOME 10/17/2017 Office visit Melisa Ball MANAGER IN HOME 09/03/2017 Office visit Melisa Ball MANAGER IN HOME 06/04/2017 Office visit Melisa Quinn MANAGER IN HOME 04/05/2017 Office visit Melisa Walker MANAGER IN HOME 03/08/2017 Office visit Melisa Ball MANAGER IN HOME 12/24/2016 Office visit 12/24/2016 Office visit Melisa Walker MANAGER IN HOME 12/11/2016 Office visit Melisa Walker MANAGER IN HOME 10/08/2016 Office visit Melisa Walker MANAGER IN HOME 06/19/2016 Office visit Melisa Walker MANAGER IN HOME 02/06/2016 Office visit Melisa Walker MANAGER IN HOME 01/05/2016 Office visit Melisa Ball MANAGER IN HOME 01/02/2016 Office visit 01/02/2016 Office visit Melisa Ball MANAGER IN HOME 12/30/2015 Office visit Melisa Walker MANAGER IN HOME 07/25/2015 Office visit Edith Pena MANAGER IN HOME 03/11/2015 Office visit Edith Pena MANAGER IN HOME 02/14/2015 Office visit Edith Pena MANAGER IN HOME 11/25/2014 Office visit Edith Pena MANAGER IN HOME
--- OUTSIDE RECORDS SUMMARY | 2019-04-16 14:01 | XMS REPORT ---
Author Author Melisa Ball Organization [facility] Address [address] [place], [place] [id number] Care Team Providers Care Escrow Clerk Name Role Phone Melisa Ball PCP Melisa [...] by oral route 4 times a day diclofenac sodium 75 mg oral tablet,delayed release (DR/EC) 07/29/2018 TAKE 1 TABLET (75 MG) BY ORAL ROUTE 2 TIMES PER DAY FOR 30 DAYS gabapentin 300 mg oral capsule 09/22/2018 TAKE 1 CAPSULE BY ORAL ROUTE 3 TIMES A DAY FOR 90 DAYS atorvastatin 40 mg oral tablet 10/09/2018 04/07/2019 take 1 tablet (40 mg) by oral route once daily at bedtime for 90 days hydrochlorothiazide 25 mg oral tablet 10/09/2018 TAKE 1 TABLET (25 MG) BY ORAL ROUTE ONCE DAILY Zetia 10 mg oral tablet 01/02/2019 TAKE 1 TABLET (10 MG) BY ORAL ROUTE ONCE DAILY FOR 90 DAYS mupirocin 2 % topical ointment 01/05/2019 apply a small amount to the affected area by topical route 3 times per day Bactrim DS 800-160 mg oral tablet 01/05/2019 01/12/2019 take 1 tablet by oral route every 12 hours for 7 days pantoprazole 40 mg oral tablet,delayed release (DR/EC) 01/05/2019 TAKE 1 TABLET (40 MG) BY ORAL ROUTE 2 TIMES PER DAY FOR 30 DAYS Name Start Date Expiration Date SIG Comments [...] oral route once daily for 30 days Discontinued Name Start Date Discontinued Date [...] MORNING AND EVENING MEALS FOR 30 DAYS Problem List Description Status Onset Hypertension Active 12/30/2015 Type 2 diabetes mellitus without complication Active 01/06/2016 Hyperlipidemia, unspecified Active 01/06/2016 Arthritis Active 06/19/2016 Neuropathy Active 06/19/2016 Mixed hyperlipidemia Active 04/05/2017 Essential hypertension Active 04/05/2017 Vital Signs Date Time BP-Sys(mm[Hg] BP-Eden(mm[Hg]) HR(bpm) RR(rpm) Temp WT HT HC BMI BSA BMI Percentile O2 Sat(%) 01/05/2019 9:36:00 AM 120 mmHg 60 mmHg [...] F 190 lbs 67 in 29.76 kg/m2 2.02 m2 95 % 02/14/2015 10:47:00 AM 138 mmHg 62 mmHg 48 bpm 18 rpm 98.3 F 187.4 lbs 67 in 29.3507 kg/m 2.0046 m 94 % 11/25/2014 9:58:00 AM 130 mmHg [...] 12:00 AM DXA BONE DENSITY AXIAL Returned 11/25/2014 12:00 AM Orthopedic Consult Reviewed [...] 10:04AM Skin irritation Jan 05 2019 9:38AM Payers Insurance Name Company Name Plan Name Plan Number Policy Number Policy Group Number Start Date Medicare RHC Medicare RHC [id number] N/A Cigna Medicare Supplement Cigna Medicare Supplement [id number] Saturday, 2017 Medicare Part A Medicare Part A [id number] Sunday, 2012 [place] [id number] Wednesday, 2012 Medicare Part B [place] [id number] N/A Medicare Part A Medicare - Lab/Xray [id number] Sunday, September 16, 2012 Medicare RHC Medicare RHC [id number] N/A [place] [id number] N/A History of Encounters Visit Date Visit Type Provider 01/05/2019 Office visit Melisa Ball ELEPHANT TAMER 12/22/2018 Office visit Melisa Ball ELEPHANT TAMER 10/09/2018 Office visit Melisa Ball ELEPHANT TAMER 10/08/2018 [facility] Tim Jones MD 07/25/[address] Javier Stark MD 06/25/[address] Javier Stark MD 04/11/2018 Office visit Sirena Mendoza ELEPHANT TAMER 03/28/2018 Office visit Sirena Mendoza ELEPHANT TAMER 03/25/2018 Office visit Melisa Walker ELEPHANT TAMER 01/14/2018 Office visit Melisa Walker ELEPHANT TAMER 01/13/2018 Office visit Melisa Walker ELEPHANT TAMER 12/20/2017 Office visit Melisa Walker ELEPHANT TAMER 10/17/2017 Office visit Melisa Walker ELEPHANT TAMER 09/03/2017 Office visit Melisa Walker ELEPHANT TAMER 06/04/2017 Office visit Melisa Walker ELEPHANT TAMER 04/05/2017 Office visit Melisa Walker ELEPHANT TAMER 03/08/2017 Office visit Melisa Walker ELEPHANT TAMER 12/24/2016 Office visit 12/24/2016 Office visit Melisa Walker ELEPHANT TAMER 12/11/2016 Office visit Melisa Walker ELEPHANT TAMER 10/08/2016 Office visit Melisa Walker ELEPHANT TAMER 06/19/2016 Office visit Melisa Walker ELEPHANT TAMER 02/06/2016 Office visit Melisa Walker ELEPHANT TAMER 01/05/2016 Office visit Melisa Walker ELEPHANT TAMER 01/02/2016 Office visit 01/02/2016 Office visit Melisa Walker ELEPHANT TAMER 12/30/2015 Office visit Melisa Walker ELEPHANT TAMER 07/25/2015 Office visit Edith Pena ELEPHANT TAMER 03/11/2015 Office visit Edith Pena ELEPHANT TAMER 02/14/2015 Office visit Edith Pena ELEPHANT TAMER 11/25/2014 Office visit Edith Pena ELEPHANT TAMER
--- OUTSIDE RECORDS SUMMARY | 2019-04-16 14:02 | XMS REPORT ---
Author Author Melisa Ball Organization [facility] Address [address] [place], [place] [id number] Care Team Providers Care Art Director Name Role Phone Melisa Ball PCP Melisa Ball PreferredProvider Allergies and Adverse Reactions Name Reaction Notes No known drug allergy Plan of Treatment Planned Activity Comments Planned Date Planned Time Plan/Goal US SOFT TISSUES HEAD AND NECK 01/13/2018 12:[address] NECK SOFT TISSUE W/CONTRAST 01/13/2018 12:[address] ABD AND PELVIS W/CONTRAST 06/25/2018 12:00 AM MAMMOGRAPHY SCREENING, BILATERAL 12/22/2018 12:00 AM DEXA 12/22/2018 12:00 AM Medications Active Name Start Date Estimated Completion Date SIG Comments red yeast rice 600 mg oral tablet berberine 300 mg twice daily intestinal sooth and build three times a day n magnesium 250 mg oral tablet take 1 tablet by oral route 4 times a day Zetia 10 mg oral tablet 07/02/2018 12/29/2018 take 1 tablet (10 mg) by oral route once daily for 90 days diclofenac sodium 75 mg oral tablet,delayed release [...] once daily at bedtime for 90 days pantoprazole 40 mg oral tablet,delayed release (DR/EC) 10/09/2018 TAKE 1 TABLET (40 MG) BY ORAL ROUTE 2 TIMES PER DAY FOR 30 DAYS hydrochlorothiazide 25 mg oral tablet 10/09/2018 TAKE 1 TABLET (25 MG) BY ORAL ROUTE ONCE DAILY Name Start Date Expiration Date SIG Comments [...] HC BMI BSA BMI Percentile O2 Sat(%) 12/22/2018 10:02:00 AM 120 mmHg 52 mmHg [...] Returned 12/22/2018 12:00 AM LIPID PANEL Returned 11/25/2014 12:00 AM Orthopedic Consult Reviewed [...] 10:04AM Menopausal symptoms Dec 22 2018 10:04AM Payers Insurance Name Company Name Plan Name Plan Number Policy Number Policy Group Number Start Date Medicare RHC Medicare RHC [id number] N/A Cigna Medicare Supplement Cigna Medicare Supplement [id number] Saturday, 2017 Medicare Part A Medicare Part A [id number] Sunday, 2012 [employer] [id number] Wednesday, 2012 Medicare Part B [place] [id number] N/A Medicare Part A Medicare - Lab/Xray [id number] Sunday, September 16, 2012 Medicare C Medicare RHC [id number] N/A [place] [id number] N/A History of Encounters Visit Date Visit Type Provider 12/22/2018 Office visit Melisa Ball RESEARCH PHYSICIST 10/09/2018 Office visit Melisa Ball RESEARCH PHYSICIST 10/08/2018 [facility] Tim Jones MD 07/25/[address] Javier Stark MD 06/25/[address] Javier Stark MD 04/11/2018 Office visit Sirena Mendoza RESEARCH PHYSICIST 03/28/2018 Office visit Sirena Mendoza RESEARCH PHYSICIST 03/25/2018 Office visit Melisa Ball RESEARCH PHYSICIST 01/14/2018 Office visit Melisa Ball RESEARCH PHYSICIST 01/13/2018 Office visit Melisa Ball RESEARCH PHYSICIST 12/20/2017 Office visit Melisa Ball RESEARCH PHYSICIST 10/17/2017 Office visit Melisa Ball RESEARCH PHYSICIST 09/03/2017 Office visit Melisa Ball RESEARCH PHYSICIST 06/04/2017 Office visit Melisa Ball RESEARCH PHYSICIST 04/05/2017 Office visit Melisa Ball RESEARCH PHYSICIST 03/08/2017 Office visit Melisa Ball RESEARCH PHYSICIST 12/24/2016 Office visit 12/24/2016 Office visit Melisa Ball RESEARCH PHYSICIST 12/11/2016 Office visit Melisa Ball RESEARCH PHYSICIST 10/08/2016 Office visit Melisa Ball RESEARCH PHYSICIST 06/19/2016 Office visit Melisa Ball RESEARCH PHYSICIST 02/06/2016 Office visit Melisa Ball RESEARCH PHYSICIST 01/05/2016 Office visit Melisa Ball RESEARCH PHYSICIST 01/02/2016 Office visit 01/02/2016 Office visit Melisa Ball RESEARCH PHYSICIST 12/30/2015 Office visit Melisa Ball RESEARCH PHYSICIST 07/25/2015 Office visit Edith Pena RESEARCH PHYSICIST 03/11/2015 Office visit Edith Pena RESEARCH PHYSICIST 02/14/2015 Office visit Edith Pnea RESEARCH PHYSICIST 11/25/2014 Office visit Edith Pena RESEARCH PHYSICIST
--- OUTSIDE RECORDS SUMMARY | 2019-04-16 14:03 | XMS REPORT ---
Author Author Melisa Ball Organization [facility] Address [address] [place], [place] [id number] Care Team Providers Care Sinter Press Operator Name Role Phone Melisa Ball PCP Melisa Ball PreferredProvider Allergies and Adverse Reactions Name Reaction Notes No known drug allergy Plan of Treatment Planned Activity Comments Planned Date Planned Time Plan/Goal US SOFT TISSUES HEAD AND NECK 01/13/2018 12:[address] NECK SOFT TISSUE W/CONTRAST 01/13/2018 12:[address] ABD AND PELVIS W/CONTRAST 06/25/2018 12:00 AM CMP 12/22/2018 12:00 AM LIPID PANEL 12/22/2018 12:00 AM MAMMOGRAPHY SCREENING, BILATERAL 12/22/2018 12:00 [...] 06/25/2018 12:00 AM COMPREHEN METABOLIC PANEL Reviewed 11/25/2014 12:00 AM Orthopedic Consult Reviewed [...] Group Number Start Date Medicare RHC Medicare RH [id number] N/A Cigna Medicare Supplement Cigna Medicare Supplement [id number] Saturday, 2017 Medicare Part A Medicare Part A [id number] Sunday, 2012 [employer] [id number] Wednesday, 2012 Medicare Part B [place] [id number] N/A Medicare Part A Medicare - Lab/Xray [id number] Sunday, September 16, 2012 Medicare C Medicare C [id number] N/A [place] [id number] N/A History of Encounters Visit Date Visit Type Provider 12/22/2018 Office visit Melisa Ball PROFESSIONAL WRESTLER 10/09/2018 Office visit Melisa Ball PROFESSIONAL WRESTLER 10/08/2018 [facility] Tim Jones MD 07/25/[address] Javier Stark MD 06/25/[address] Javier Stark MD 04/11/2018 Office visit Sirena Mendoza PROFESSIONAL WRESTLER 03/28/2018 Office visit Sirena Mendoza PROFESSIONAL WRESTLER 03/25/2018 Office visit Melisa Ball PROFESSIONAL WRESTLER 01/14/2018 Office visit Melisa Ball PROFESSIONAL WRESTLER 01/13/2018 Office visit Melisa Ball PROFESSIONAL WRESTLER 12/20/2017 Office visit Melisa Ball PROFESSIONAL WRESTLER 10/17/2017 Office visit Melisa Ball PROFESSIONAL WRESTLER 09/03/2017 Office visit Melisa Ball PROFESSIONAL WRESTLER 06/04/2017 Office visit Melisa Ball PROFESSIONAL WRESTLER 04/05/2017 Office visit Melisa Ball PROFESSIONAL WRESTLER 03/08/2017 Office visit Melisa Ball PROFESSIONAL WRESTLER 12/24/2016 Office visit 12/24/2016 Office visit Melisa Ball PROFESSIONAL WRESTLER 12/11/2016 Office visit Melisa Ball PROFESSIONAL WRESTLER 10/08/2016 Office visit Melisa Ball PROFESSIONAL WRESTLER 06/19/2016 Office visit Melisa Ball PROFESSIONAL WRESTLER 02/06/2016 Office visit Melisa Ball PROFESSIONAL WRESTLER 01/05/2016 Office visit Melisa Ball PROFESSIONAL WRESTLER 01/02/2016 Office visit 01/02/2016 Office visit Melisa Ball PROFESSIONAL WRESTLER 12/30/2015 Office visit Melisa Ball PROFESSIONAL WRESTLER 07/25/2015 Office visit Edith Pnea PROFESSIONAL WRESTLER 03/11/2015 Office visit Edith Pena PROFESSIONAL WRESTLER 02/14/2015 Office visit Edith Pena PROFESSIONAL WRESTLER 11/25/2014 Office visit Edith Pena PROFESSIONAL WRESTLER
--- OUTSIDE RECORDS SUMMARY | 2019-04-16 14:04 | XMS REPORT ---
Author Author Melisa Ball [facility] Address [address] [place], [place] [id number] Care Team Providers Care Data Integrity Consultant Name Role Phone Melisa Ball PCP Melisa [...] Start Date Estimated Completion Date SIG Comments pramipexole 0.125 mg oral tablet take 3 tablets by oral route once pramipexole 0.125 mg oral tablet 12/15/2014 3 TABS PO NIGHTLY,X30 DAYS pramipexole 0.125 mg oral tablet 02/25/2015 3 TABS PO NIGHTLY,X30 DAYS atenolol 25 mg oral tablet 01/30/2016 take 1 tablet (25 mg) by oral route once daily hydrochlorothiazide 25 mg oral tablet 10/23/2017 TAKE 1 TABLET (25 MG) BY ORAL ROUTE ONCE DAILY red yeast rice 600 mg oral tablet [...] 40 mg oral tablet,delayed release (DR/EC) 10/09/2018 11/08/2018 take 1 tablet (40 mg) by oral route 2 times per day for 30 days hydrochlorothiazide 25 mg oral tablet 10/09/2018 TAKE 1 TABLET (25 MG) BY ORAL ROUTE ONCE DAILY atorvastatin 40 mg oral tablet 10/09/2018 04/07/2019 take 1 tablet (40 mg) by oral route once daily at bedtime for 90 days Name Start Date Expiration Date SIG Comments [...] every 6 hours as needed for pain metformin 500 mg oral tablet 04/05/2017 07/04/2017 take 1 tablet (500 mg) by oral route 2 times per day with morning and evening meals for 30 days gabapentin 300 mg oral capsule 06/26/2017 03/23/2018 TAKE 1 CAPSULE BY ORAL ROUTE 3 TIMES A DAY FOR 90 DAYS clindamycin HCl 300 mg oral capsule 01/14/2018 [...] HC BMI BSA BMI Percentile O2 Sat(%) 10/09/2018 10:13:00 AM 130 mmHg 72 mmHg [...] Reviewed 12/20/2017 12:00 AM MAMMOGRAPHY SCREENING, BILATERAL Returned 01/13/2018 12:00 AM COMPLETE CBC W/AUTO DIFF WBC Returned 01/13/2018 12:00 AM COMPREHEN METABOLIC PANEL Returned 01/13/2018 12:00 AM C-REACTIVE PROTEIN Returned 01/13/2018 12:[address] MAXILLOFACIAL W/DYE Returned 03/28/2018 12:00 AM COMPLETE CBC W/AUTO DIFF [...] 12:00 AM Dialated Eye Exam- Diabetic Done 03/28/2018 3:10 PM LACTIC ACID 1.3 GLUCOSE [...] eGFR 44 eGFR AA* 53 HGB A1C 5.6 Est Avg Glucose 114.0 09/10/2018 10:17 AM Falls [...] 10:16AM Mixed hyperlipidemia Oct 09 2018 10:16AM Payers Insurance Name Company Name Plan Name Plan Number Policy Number Policy Group Number Start Date Medicare [facility] Medicare [facility] [id number] N/A Cigna Medicare Supplement Cigna Medicare Supplement [id number] Saturday, 2017 Medicare Part A Medicare Part A [id number] Sunday, 2012 [employer] [id number] Wednesday, 2012 Medicare Part B Medicare Of [place] [id number] N/A Medicare Part A Medicare - Lab/Xray [id number] Sunday, September 16, 2012 Medicare RHC Medicare RHC [id number] N/A [place] [id number] N/A History of Encounters Visit Date Visit Type Provider 10/09/2018 Office visit Melisa Ball STUDIO COORDINATOR 07/25/[address] Javier Stark MD 06/25/[address] Javier Stark MD 04/11/2018 Office visit Sirena Mendoza STUDIO COORDINATOR 03/28/2018 Office visit Sirena Mendoza STUDIO COORDINATOR 03/25/2018 Office visit Melisa Ball STUDIO COORDINATOR 01/14/2018 Office visit Melisa Walker STUDIO COORDINATOR 01/13/2018 Office visit Melisa Walker STUDIO COORDINATOR 12/20/2017 Office visit Melisa Walker STUDIO COORDINATOR 10/17/2017 Office visit Melisa Walker STUDIO COORDINATOR 09/03/2017 Office visit Melisa Walker STUDIO COORDINATOR 06/04/2017 Office visit Melisa Walker STUDIO COORDINATOR 04/05/2017 Office visit Melisa Walker STUDIO COORDINATOR 03/08/2017 Office visit Melisa Walker STUDIO COORDINATOR 12/24/2016 Office visit 12/24/2016 Office visit Melisa Walker STUDIO COORDINATOR 12/11/2016 Office visit Melisa Walker STUDIO COORDINATOR 10/08/2016 Office visit Melisa Walker STUDIO COORDINATOR 06/19/2016 Office visit Melisa Walker STUDIO COORDINATOR 02/06/2016 Office visit Melisa Walker STUDIO COORDINATOR 01/05/2016 Office visit Melisa Walker STUDIO COORDINATOR 01/02/2016 Office visit 01/02/2016 Office visit Melisa Walker STUDIO COORDINATOR 12/30/2015 Office visit Melisa Walker STUDIO COORDINATOR 07/25/2015 Office visit Edith Pena STUDIO COORDINATOR 03/11/2015 Office visit Edith Pena STUDIO COORDINATOR 02/14/2015 Office visit Edith Pena STUDIO COORDINATOR 11/25/2014 Office visit Edith Pena STUDIO COORDINATOR
--- OUTSIDE RECORDS SUMMARY | 2019-04-16 14:05 | XMS REPORT ---
Author Author Javier Stark Organization [facility] Address [address] [place], [place] [id number] Care Team Providers Care Electronic Organ Mechanic Name Role Phone Javier Stark PCP Javier Stark PreferredProvider Allergies and Adverse Reactions Name Reaction [...] (25 MG) BY ORAL ROUTE ONCE DAILY gabapentin 300 mg oral capsule 12/20/2017 TAKE 1 CAPSULE BY ORAL ROUTE 3 TIMES A DAY FOR 90 DAYS diclofenac sodium 75 mg oral tablet,delayed release (DR/EC) 01/28/2018 TAKE 1 TABLET (75 MG) BY ORAL ROUTE 2 TIMES PER DAY FOR 30 DAYS red yeast rice 600 mg oral tablet berberine 300 mg twice daily intestinal sooth and build three times a day n magnesium 250 mg oral tablet take 1 tablet by oral route 4 times a day Zetia 10 mg oral tablet 07/02/2018 12/29/2018 take 1 tablet (10 mg) by oral route once daily for 90 days hydrochlorothiazide 25 mg oral tablet 07/10/2018 TAKE 1 TABLET (25 MG) BY ORAL [...] HC BMI BSA BMI Percentile O2 Sat(%) 07/25/2018 10:55:00 AM 132 mmHg 76 mmHg 48 bpm 18 rpm 97.4 F 174 lbs 67 in 27.252 kg/m 1.9316 m 97 % 06/25/2018 11:36:00 AM 135 mmHg 76 mmHg 63 bpm 18 rpm 98.1 F 171.125 lbs 67 in 26.80 kg/m2 1.92 m2 95 % 04/11/2018 11:08:00 AM 126 mmHg 72 mmHg 53 bpm 18 rpm 97.7 F 169 lbs 67 in 26.4689 kg/m 1.9036 m 97 % 03/28/2018 1:55:00 PM 177 mmHg 82 mmHg 48 bpm 18 rpm 97.5 F 172.25 lbs 67 in 26.98 kg/m2 1.92 m2 97 % 03/25/2018 8:07:00 AM 121 mmHg 62 mmHg 52 bpm 18 rpm 97.9 F 172.25 lbs 67 in 26.9779 kg/m 1.9218 m 97 % 01/14/2018 10:05:00 AM 136 mmHg 74 mmHg 54 bpm 18 rpm 98.9 F 171 lbs 67 in 26.78 kg/m2 1.91 m2 96 % 01/13/2018 1:28:00 PM 126 mmHg 68 mmHg 63 bpm 18 rpm 97.7 F 171.375 lbs 67 in 26.8408 kg/m 1.9169 m 96 % 12/20/2017 8:06:00 AM 134 mmHg 82 mmHg 51 bpm 16 rpm 96.6 F 174.125 lbs 67 in 27.27 kg/m2 1.93 m2 95 % 10/17/2017 9:26:00 AM [...] ACID Reviewed 06/25/2018 12:00 AM LIPID PANEL Returned 06/25/2018 12:00 AM GLYCOSYLATED HEMOGLOBIN TEST Returned 06/25/2018 12:00 AM COMPREHEN METABOLIC PANEL Returned 11/25/2014 12:00 AM Orthopedic Consult [...] 0.07 #BASO 0.04 MANUAL DIFF NOT IND History Of Immunizations Not available. History of [...] Lower abdominal pain Jul 25 2018 10:57AM Payers Insurance Name Company Name Plan Name Plan Number Policy Number Policy Group Number Start Date Medicare RHC Medicare RHC [id number] N/A Cigna Medicare Supplement Cigna Medicare Supplement [id number] Saturday, 2017 Medicare Part A Medicare Part A [id number] Sunday, 2012 [employer] [id number] Wednesday, 2012 Medicare Part B Medicare [facility] [id number] N/A Medicare Part A Medicare - Lab/Xray [id number] Sunday, September 16, 2012 Medicare RHC Medicare RHC [id number] N/A [place] [id number] N/A History of Encounters Visit Date Visit Type Provider 07/25/[address] Javier Stark MD 06/25/[address] Javier Stark MD 04/11/2018 Office visit Sirena Mendoza DINING CAR CONDUCTOR 03/28/2018 Office visit Sirena Mendoza DINING CAR CONDUCTOR 03/25/2018 Office visit Melisa Ball DINING CAR CONDUCTOR 01/14/2018 Office visit Melisa Ball DINING CAR CONDUCTOR 01/13/2018 Office visit Melisa Ball DINING CAR CONDUCTOR 12/20/2017 Office visit Melisa Ball DINING CAR CONDUCTOR 10/17/2017 Office visit Melisa Ball DINING CAR CONDUCTOR 09/03/2017 Office visit Melisa Ball DINING CAR CONDUCTOR 06/04/2017 Office visit Melisa Ball DINING CAR CONDUCTOR 04/05/2017 Office visit Melisa Ball DINING CAR CONDUCTOR 03/08/2017 Office visit Melisa Ball DINING CAR CONDUCTOR 12/24/2016 Office visit 12/24/2016 Office visit Melisa Ball DINING CAR CONDUCTOR 12/11/2016 Office visit Melisa Ball DINING CAR CONDUCTOR 10/08/2016 Office visit Melisa Ball DINING CAR CONDUCTOR 06/19/2016 Office visit Melisa Ball DINING CAR CONDUCTOR 02/06/2016 Office visit Melisa Ball DINING CAR CONDUCTOR 01/05/2016 Office visit Melisa Ball DINING CAR CONDUCTOR 01/02/2016 Office visit 01/02/2016 Office visit Melisa Ball DINING CAR CONDUCTOR 12/30/2015 Office visit Melisa Ball DINING CAR CONDUCTOR 07/25/2015 Office visit Edith Pena DINING CAR CONDUCTOR 03/11/2015 Office visit Edith Pena DINING CAR CONDUCTOR 02/14/2015 Office visit Edith Pena DINING CAR CONDUCTOR 11/25/2014 Office visit Edith Pena DINING CAR CONDUCTOR
--- OUTSIDE RECORDS SUMMARY | 2019-04-16 14:05 | XMS REPORT ---
Author Author Javier Stark Organization [facility] Address [address] [place], [place] [id number] Care Team Providers Care Tire Cord Weaver Name Role Phone Javier Stark PCP Javier [...] 3 TIMES A DAY FOR 90 DAYS red yeast rice 600 mg oral [...] (25 MG) BY ORAL ROUTE ONCE DAILY diclofenac sodium 75 mg oral tablet,delayed release [...] Active 04/05/2017 Vital Signs Date Time BP-Sys(mm[Hg] BP-Eedn(mm[Hg]) HR(bpm) RR(rpm) Temp WT HT HC BMI [...] Number Start Date Medicare RHC Medicare RHC [id number] N/A Cigna Medicare Supplement Cigna Medicare Supplement [id number] Saturday, 2017 Medicare Part A Medicare Part A [id number] Sunday, 2012 [employer] [id number] Wednesday, 2012 Medicare Part B Medicare Of [place] [id number] N/A Medicare Part A Medicare - Lab/Xray [id number] Sunday, September 16, 2012 Medicare RHC Medicare RHC [id number] N/A [place] [id number] N/A History of Encounters Visit Date Visit Type Provider 07/25/[address] Javier Stark MD 06/25/[address] Javier Stark MD 04/11/2018 Office visit Sirena Mendoza GRADUATE INTERNSHIP 03/28/2018 Office visit Sirena Mendoza GRADUATE INTERNSHIP 03/25/2018 Office visit Melisa Ball GRADUATE INTERNSHIP 01/14/2018 Office visit Melisa Ball GRADUATE INTERNSHIP 01/13/2018 Office visit Melisa Ball GRADUATE INTERNSHIP 12/20/2017 Office visit Melisa Walker GRADUATE INTERNSHIP 10/17/2017 Office visit Melisa Walker GRADUATE INTERNSHIP 09/03/2017 Office visit Melisa Walker GRADUATE INTERNSHIP 06/04/2017 Office visit Melisa Walker GRADUATE INTERNSHIP 04/05/2017 Office visit Melisa Walker GRADUATE INTERNSHIP 03/08/2017 Office visit Melisa Walker GRADUATE INTERNSHIP 12/24/2016 Office visit 12/24/2016 Office visit Melisa Walker GRADUATE INTERNSHIP 12/11/2016 Office visit Melisa Walker GRADUATE INTERNSHIP 10/08/2016 Office visit Melisa Walker GRADUATE INTERNSHIP 06/19/2016 Office visit Melisa Walker GRADUATE INTERNSHIP 02/06/2016 Office visit Melisa Walker GRADUATE INTERNSHIP 01/05/2016 Office visit Melisa Walker GRADUATE INTERNSHIP 01/02/2016 Office visit 01/02/2016 Office visit Melisa Walker GRADUATE INTERNSHIP 12/30/2015 Office visit Melisa Walker GRADUATE INTERNSHIP 07/25/2015 Office visit Edith Pena GRADUATE INTERNSHIP 03/11/2015 Office visit Edith Pena GRADUATE INTERNSHIP 02/14/2015 Office visit Edith Pena GRADUATE INTERNSHIP 11/25/2014 Office visit Edith Pena GRADUATE INTERNSHIP
[2019-04-16 14:06] LABS: BASOPHILS % (AUTO) 0 % (0-10); EOSINOPHILS # (AUTO) 0.2 10^3/uL (0.0-0.3); EOSINOPHILS % (AUTO) 1 % (0-10); HEMATOCRIT 37 % (35-52); HEMOGLOBIN 11.4 G/DL (11.5-16.0); LYMPHOCYTES # (AUTO) 1.8 X 10^3 (1.0-4.0); LYMPHOCYTES % (AUTO) 10 % (12-44); MEAN CORPUSCULAR HEMOGLOBIN 29 PG (25-34); MEAN CORPUSCULAR HGB CONC 31 G/DL (32-36); MEAN CORPUSCULAR VOLUME 93 FL (80-99); MEAN PLATELET VOLUME 8.5 FL (7.4-10.4); MONOCYTES # (AUTO) 0.7 X 10^3 (0.0-1.0); MONOCYTES % (AUTO) 4 % (0-12); NEUTROPHILS % (AUTO) 84 % (42-75); PLATELET COUNT 554 10^3/uL (130-400); RED CELL DISTRIBUTION WIDTH 14.9 % (10.0-14.5); WHITE BLOOD COUNT 17.8 10^3/uL (4.3-11.0)
--- OUTSIDE RECORDS SUMMARY | 2019-04-16 14:06 | XMS REPORT ---
Author Author Javier Stark [facility] Address [address] [place], [place] [id number] Care Team Providers Care Competitive Shopper Name Role Phone Javier Stark PCP Javier Stark PreferredProvider Allergies and Adverse Reactions Name Reaction Notes No known drug allergy Plan of Treatment Planned Activity Comments Planned Date Planned Time Plan/Goal US SOFT TISSUES HEAD AND NECK 01/13/2018 12:[address] NECK SOFT TISSUE W/CONTRAST 01/13/2018 12:00 AM LIPID PANEL 06/25/2018 12:00 AM HEMOGLOBIN A1C 06/25/2018 12:00 AM CMP 06/25/2018 12:[address] ABD AND PELVIS W/CONTRAST [...] 2 TIMES PER DAY FOR 30 DAYS terbinafine HCl 250 mg oral tablet 04/11/2018 07/10/2018 take 1 tablet (250 mg) by oral route once daily for 30 days red yeast rice 600 mg oral tablet berberine 300 mg twice daily intestinal sooth and build three times a day n magnesium 250 mg oral tablet take 1 tablet by oral route 4 times a day Name Start Date Expiration Date SIG Comments [...] route every 6 hours for 7 days Discontinued Name Start [...] HC BMI BSA BMI Percentile O2 Sat(%) 06/25/2018 11:36:00 AM 135 mmHg 76 mmHg [...] History Name Description Comments Tobacco Former smoker 02/06/2016 - 20 years Alcohol Light History [...] 12:00 AM ASSAY OF LACTIC ACID Reviewed 11/25/2014 12:00 AM Orthopedic Consult Reviewed [...] Generalized abdominal pain Jun 25 2018 11:47AM Payers Insurance Name Company Name Plan Name Plan Number Policy Number Policy Group Number Start Date Medicare RHC Medicare RHC [id number] N/A Cigna Medicare Supplement Cigna Medicare Supplement [id number] Saturday, 2017 Medicare Part A Medicare Part A [id number] Sunday, 2012 [facility] [id number] Wednesday, 2012 Medicare Part B Medicare Of [place] [id number] N/A Medicare Part A Medicare - Lab/Xray [id number] Sunday, September 16, 2012 Medicare RHC Medicare RHC [id number] N/A [place] [id number] N/A History of Encounters Visit Date Visit Type Provider 06/25/[address] Javier Stark MD 04/11/2018 Office visit Sirena Mendoza MULCHER OPERATOR 03/28/2018 Office visit Sirena Mendoza MULCHER OPERATOR 03/25/2018 Office visit Melisa Ball MULCHER OPERATOR 01/14/2018 Office visit Melisa Ball MULCHER OPERATOR 01/13/2018 Office visit Melisa Walker MULCHER OPERATOR 12/20/2017 Office visit Melisa Walker MULCHER OPERATOR 10/17/2017 Office visit Melisa Walker MULCHER OPERATOR 09/03/2017 Office visit Melisa Walker MULCHER OPERATOR 06/04/2017 Office visit Melisa Walker MULCHER OPERATOR 04/05/2017 Office visit Melisa Walker MULCHER OPERATOR 03/08/2017 Office visit Melisa Walker MULCHER OPERATOR 12/24/2016 Office visit 12/24/2016 Office visit Melisa Walker MULCHER OPERATOR 12/11/2016 Office visit Melisa Walker MULCHER OPERATOR 10/08/2016 Office visit Melisa Walker MULCHER OPERATOR 06/19/2016 Office visit Emlisa Walker MULCHER OPERATOR 02/06/2016 Office visit Melisa Walker MULCHER OPERATOR 01/05/2016 Office visit Melisa Walker MULCHER OPERATOR 01/02/2016 Office visit 01/02/2016 Office visit Melisa Walker MULCHER OPERATOR 12/30/2015 Office visit Melisa Walker MULCHER OPERATOR 07/25/2015 Office visit Edith Pena MULCHER OPERATOR 03/11/2015 Office visit Edith Pena MULCHER OPERATOR 02/14/2015 Office visit Edith Pena MULCHER OPERATOR 11/25/2014 Office visit Edith Pena MULCHER OPERATOR
--- OUTSIDE RECORDS SUMMARY | 2019-04-16 14:07 | XMS REPORT ---
Author Author Javier Stark Organization [facility] Address [address] [place], [place] [id number] Care Team Providers Care Roller Hand Name Role Phone Javier Stark PCP Javier Stark PreferredProvider Allergies and Adverse Reactions Name Reaction Notes No known drug allergy Plan of Treatment Planned Activity Comments Planned Date Planned Time Plan/Goal US SOFT TISSUES HEAD AND NECK 01/13/2018 12:[address] NECK SOFT TISSUE W/CONTRAST 01/13/2018 12:00 AM LIPID PANEL 06/25/2018 12:00 AM HEMOGLOBIN A1C 06/25/2018 12:00 AM CMP 06/25/2018 12:00 AM Medications Active Name Start [...] 11:47AM Essential Hypertension Jun 25 2018 11:47AM Payers Insurance Name Company Name Plan Name Plan Number Policy Number Policy Group Number Start Date Medicare RHC Medicare RHC [id number] N/A Cigna Medicare Supplement Cigna Medicare Supplement [id number] Saturday, 2017 Medicare Part A Medicare Part A [id number] Sunday, 2012 [employer] [id number] Wednesday, 2012 Medicare Part B Medicare [facility] [id number] N/A Medicare Part A Medicare - Lab/Xray [id number] Sunday, September 16, 2012 Medicare RHC Medicare RHC [id number] N/A [place] [id number] N/A History of Encounters Visit Date Visit Type Provider 06/25/[address] Javier Stark MD 04/11/2018 Office visit Sirena Mendoza SOFTWARE QUALITY ENGINEER 03/28/2018 Office visit Sirena Mendoza SOFTWARE QUALITY ENGINEER 03/25/2018 Office visit Melisa Ball SOFTWARE QUALITY ENGINEER 01/14/2018 Office visit Melisa Ball SOFTWARE QUALITY ENGINEER 01/13/2018 Office visit Melisa Ball SOFTWARE QUALITY ENGINEER 12/20/2017 Office visit Melisa Ball SOFTWARE QUALITY ENGINEER 10/17/2017 Office visit Melisa Ball SOFTWARE QUALITY ENGINEER 09/03/2017 Office visit Melisa Ball SOFTWARE QUALITY ENGINEER 06/04/2017 Office visit Melisa Walker SOFTWARE QUALITY ENGINEER 04/05/2017 Office visit Melisa Ball SOFTWARE QUALITY ENGINEER 03/08/2017 Office visit Melisa Ball SOFTWARE QUALITY ENGINEER 12/24/2016 Office visit 12/24/2016 Office visit Melisa Ball SOFTWARE QUALITY ENGINEER 12/11/2016 Office visit Melisa Walker SOFTWARE QUALITY ENGINEER 10/08/2016 Office visit Melisa Walker SOFTWARE QUALITY ENGINEER 06/19/2016 Office visit Melisa Ball SOFTWARE QUALITY ENGINEER 02/06/2016 Office visit Melisa Walker SOFTWARE QUALITY ENGINEER 01/05/2016 Office visit Melisa Ball SOFTWARE QUALITY ENGINEER 01/02/2016 Office visit 01/02/2016 Office visit Melisa Ball SOFTWARE QUALITY ENGINEER 12/30/2015 Office visit Melisa Ball SOFTWARE QUALITY ENGINEER 07/25/2015 Office visit Edith Pena SOFTWARE QUALITY ENGINEER 03/11/2015 Office visit Edith Pena SOFTWARE QUALITY ENGINEER 02/14/2015 Office visit Edith Pena SOFTWARE QUALITY ENGINEER 11/25/2014 Office visit Edith Pena SOFTWARE QUALITY ENGINEER
--- OUTSIDE RECORDS SUMMARY | 2019-04-16 14:08 | XMS REPORT ---
Author Author Melisa Ball [facility] Address [address] [place], [place] [address] Care Team Providers Care Electrical Maintenance Worker Name Role Phone Melisa Ball PCP Unavailable Allergies and Adverse Reactions Name Reaction Notes No known drug allergy Plan of Treatment Not available. Medications Active Name Start Date Estimated Completion Date SIG Comments meloxicam 15 mg oral tablet take 1 tablet (15 mg) by oral route once daily pramipexole 0.125 mg oral tablet take 3 tablets by oral route once pramipexole 0.125 mg oral tablet 12/15/2014 3 TABS PO NIGHTLY,X30 DAYS pramipexole 0.125 mg oral tablet 02/25/2015 3 TABS PO NIGHTLY,X30 DAYS Lipitor 40 mg oral tablet 01/05/2016 take 1 tablet (40 mg) by oral route once daily metformin 500 mg oral tablet 01/05/2016 02/04/2016 take 2 tablets by oral route 2 times a day for 30 days Requip 0.5 mg oral tablet 01/17/2016 02/16/2016 take 1-2 tablets by oral route once a day (at bedtime) for 30 days hydrochlorothiazide 25 mg oral tablet 01/30/2016 take 1 tablet (25 mg) by oral route once daily meloxicam 15 mg oral tablet 01/30/2016 1 TAB PO DAILY atenolol 25 mg oral tablet 01/30/2016 take 1 tablet (25 mg) by oral route once daily gabapentin 300 mg oral capsule 01/30/2016 01/24/2017 take 1 capsule (300 mg) by oral route 3 for 90 days Discontinued Name Start Date Discontinued Date SIG Comments atorvastatin 10 mg oral tablet 12/30/2015 take 1 tablet (10 mg) by oral route once daily pramipexole 0.125 mg oral tablet 10/19/2015 12/30/2015 3 TABS PO NIGHTLY,X30 DAYS Problem List Description Status Onset Hypertension Active 12/30/2015 Type 2 diabetes mellitus without complication Active 01/06/2016 Hyperlipidemia, unspecified Active 01/06/2016 Vital Signs Date Time BP-Sys(mm[Hg] BP-[place](mm[Hg]) HR(bpm) RR(rpm) Temp WT HT HC BMI BSA BMI Percentile O2 Sat(%) 01/05/2016 2:09:00 PM 130 mmHg 68 mmHg [...] History Name Description Comments Tobacco Former smoker 20 years Alcohol Light History of Procedures Date Ordered Description Order Status 01/02/2016 12:00 AM MAMMOGRAM BOTH BREASTS Reviewed 12/30/2015 12:00 AM COMPLETE CBC W/AUTO DIFF WBC Returned 12/30/2015 12:00 AM COMPREHEN METABOLIC PANEL Returned 12/30/2015 12:00 AM LIPID PANEL Returned 12/30/2015 12:00 AM ASSAY THYROID STIM HORMONE Returned 01/02/2016 12:00 AM GLYCOSYLATED HEMOGLOBIN TEST Returned 11/25/2014 12:00 AM Orthopedic Consult Reviewed 02/14/2015 12:00 AM STREP A ASSAY W/OPTIC Returned 02/14/2015 12:00 AM CULTURE SCREEN ONLY Returned 03/11/2015 12:00 AM COMPREHEN METABOLIC PANEL Returned 03/11/2015 12:00 AM LIPID PANEL Returned 03/11/2015 12:00 AM COMPLETE CBC W/AUTO DIFF WBC Returned Results Summary Data and Description Results 03/11/2015 9:50 AM WBC 7.9 RBC 4.49 HGB 14.10 g/dLHCT 41.90 %MCV 93.0 fLMCH 31.40 pgMCHC 33.70 g/dLRDW CV 13.80 %MPV 10.50 fLPLT 237 %NEUT 51.10 %%LYMP 39.70 %%MONO 5.20 %%EOS 3.20 %%BASO 0.80 %#NEUT 4.01 #LYMP 3.12 #MONO 0.41 #EOS 0.25 #BASO 0.06 GLUCOSE 107.0 mg/dLSODIUM 143.0 mmol/LPOTASSIUM 3.90 mmol/LCHLORIDE 102.0 mmol/LCO2 28.0 mmol/LBUN 13.0 mg/dLCREATININE 0.80 mg/dLSGOT/AST 28.0 IU/LSGPT/ALT 53.0 IU/LALK PHOS 25.0 IU/LTOTAL PROTEIN 6.70 g/dLALBUMIN 4.30 g/dLTOTAL BILI 0.80 mg/dLCALCIUM 9.80 mg/dLeGFR >60 mL/min/1.73 [id number] 201.0 mg/dLCHOLESTEROL 142.0 mg/dLHDL 48.0 mg/dLLDL (CALC) 54.0 mg/dL 01/02/2016 9:25 AM WBC 7.4 RBC 4.67 HGB 14.20 g/dLHCT 42.50 %MCV 91.0 fLMCH 30.40 pgMCHC 33.40 g/dLRDW CV 13.60 %MPV 10.20 fLPLT 251 %NEUT 53.0 %%LYMP 38.30 %%MONO 5.0 %%EOS 2.70 %%BASO 0.90 %#NEUT 3.90 #LYMP 2.82 #MONO 0.37 #EOS 0.20 #BASO 0.07 TRIGLYCERIDES 286.0 mg/dLCHOLESTEROL 232.0 mg/dLHDL 43.0 mg/dLLDL (CALC) 132.0 mg/dLGLUCOSE 132.0 mg/dLSODIUM 141.0 mmol/LPOTASSIUM 3.70 mmol/LCHLORIDE 103.0 mmol/LCO2 25.0 mmol/LBUN 19.0 mg/dLCREATININE 0.90 mg/dLSGOT/AST 25.0 IU/LSGPT/ALT 33.0 IU/LALK PHOS 20.0 IU/LTOTAL PROTEIN 6.90 g/dLALBUMIN 4.40 g/dLTOTAL BILI 0.60 mg/dLCALCIUM 9.70 mg/dLeGFR >60 mL/min/1.73mTSH 2.140 uIU/mLHemoglobin A1c 7.30 % History Of Immunizations Not available. History of Past Illness Name Date of Onset Comments Hypertension Sleep apnea with use of continuous positive airway pressure (CPAP) Endometriosis Ulcerative colitis Hypertension 12/30/2015 Type 2 diabetes mellitus without complication 01/06/2016 Hyperlipidemia, unspecified 01/06/2016 Hypertension Nov 25 2014 10:04AM Hyperlipidemia Nov [...] 2:12PM Hyperlipidemia, unspecified Jan 05 2016 2:12PM Payers Insurance Name Company Name Plan Name Plan Number Policy Number Policy Group Number Start Date Medicare Part A Medicare RHC [id number] N/A [place] [id number] N/A Medicare Part A Medicare Part A [id number] Sunday, 2012 [employer] [id number] Wednesday, 2012 Medicare Part B Medicare Of [place] [id number] N/A Medicare Part A Medicare - Lab/Xray [id number] Sunday, September 16, 2012 History of Encounters Visit Date Visit Type Provider 01/05/2016 Office visit Melisa Ball MANAGER OPERATIONS AND PROCUREMENT 01/02/2016 Office visit 01/02/2016 Office visit Melisa Ball MANAGER OPERATIONS AND PROCUREMENT 12/30/2015 Office visit Melisa Ball MANAGER OPERATIONS AND PROCUREMENT 07/25/2015 Office visit Edith Pena MANAGER OPERATIONS AND PROCUREMENT 03/11/2015 Office visit Edith Pena MANAGER OPERATIONS AND PROCUREMENT 02/14/2015 Office visit Edith Pena MANAGER OPERATIONS AND PROCUREMENT 11/25/2014 Office visit Edith Pena MANAGER OPERATIONS AND PROCUREMENT
--- OUTSIDE RECORDS SUMMARY | 2019-04-16 14:08 | XMS REPORT ---
Author Author Sirena Mendoza [facility] Address [address] [place], [place] [id number] Care Team Providers Care Pesticide Applicator Name Role Phone Sirena Mendoza PCP Melisa Ball PreferredProvider Allergies and Adverse Reactions Name Reaction Notes No known drug allergy Plan of Treatment Planned Activity Comments Planned Date Planned Time Plan/Goal US SOFT TISSUES HEAD AND NECK 01/13/2018 12:[address] NECK SOFT TISSUE W/CONTRAST 01/13/2018 12:00 AM Medications Active Name Start Date Estimated Completion Date SIG Comments pramipexole 0.125 mg oral tablet take 3 tablets by oral route once pramipexole 0.125 mg oral tablet 12/15/2014 3 TABS PO NIGHTLY,X30 DAYS pramipexole 0.125 mg oral tablet 02/25/2015 3 TABS PO NIGHTLY,X30 DAYS Lipitor 40 mg oral tablet 01/05/2016 take 1 tablet (40 mg) by oral route once daily atenolol 25 mg oral tablet 01/30/2016 take 1 tablet (25 mg) by oral route once daily Lipitor 40 mg oral tablet 03/04/2017 TAKE 1 TABLET (40 MG) BY ORAL ROUTE ONCE DAILY hydrochlorothiazide 25 mg oral tablet 10/23/2017 TAKE [...] oral route once daily for 30 days Name Start Date Expiration Date SIG Comments Requip 0.5 mg oral tablet 01/17/2016 02/16/2016 take 1-2 tablets by oral route once a day (at bedtime) for 30 days Lipitor 40 mg oral tablet 06/08/2016 03/05/2017 TAKE 1 TABLET (40 MG) BY ORAL ROUTE ONCE DAILY cyclobenzaprine 10 mg oral tablet 12/11/2016 take [...] 10/19/2015 12/30/2015 3 TABS PO NIGHTLY,X30 DAYS meloxicam 15 mg oral tablet 01/30/2016 1 TAB PO DAILY atenolol 25 mg oral tablet 10/01/2016 03/08/2017 TAKE 1 TABLET (25 MG) BY ORAL ROUTE ONCE DAILY lidocaine 5 % topical adhesive patch,medicated 12/24/2016 04/05/2017 apply 1 patch by transdermal route once daily (May wear up to 12hours.) phentermine 37.5 mg oral tablet 03/08/2017 04/05/2017 [...] HC BMI BSA BMI Percentile O2 Sat(%) 04/11/2018 11:08:00 AM 126 mmHg 72 mmHg [...] 2018 11:15AM Parotitis Mar 28 2018 1:58PM Payers Insurance Name Company Name Plan Name Plan Number Policy Number Policy Group Number Start Date Medicare RHC Medicare RHC [id number] N/A Cigna Medicare Supplement Cigna Medicare Supplement [id number] Saturday, 2017 Medicare Part A Medicare Part A [id number] Sunday, 2012 [employer] [id number] Wednesday, 2012 Medicare Part B [place] [id number] N/A Medicare Part A Medicare - Lab/Xray [id number] Sunday, September 16, 2012 Medicare RHC Medicare RHC [id number] N/A [place] [id number] N/A History of Encounters Visit Date Visit Type Provider 04/11/2018 Office visit Sirena Mednoza FRAMING MACHINE TENDER 03/28/2018 Office visit Sirena Mendoza FRAMING MACHINE TENDER 03/25/2018 Office visit Melisa Walker FRAMING MACHINE TENDER 01/14/2018 Office visit Melisa Walker FRAMING MACHINE TENDER 01/13/2018 Office visit Melisa Walker FRAMING MACHINE TENDER 12/20/2017 Office visit Melisa Walker FRAMING MACHINE TENDER 10/17/2017 Office visit Melisa Walker FRAMING MACHINE TENDER 09/03/2017 Office visit Melisa Walker FRAMING MACHINE TENDER 06/04/2017 Office visit Melisa Walker FRAMING MACHINE TENDER 04/05/2017 Office visit Melisa Walker FRAMING MACHINE TENDER 03/08/2017 Office visit Melisa Walker FRAMING MACHINE TENDER 12/24/2016 Office visit 12/24/2016 Office visit Melisa Walker FRAMING MACHINE TENDER 12/11/2016 Office visit Melisa Walker FRAMING MACHINE TENDER 10/08/2016 Office visit Melisa Walker FRAMING MACHINE TENDER 06/19/2016 Office visit Melisa Walker FRAMING MACHINE TENDER 02/06/2016 Office visit Melisa Walker FRAMING MACHINE TENDER 01/05/2016 Office visit Melisa Walker FRAMING MACHINE TENDER 01/02/2016 Office visit 01/02/2016 Office visit Melisa Walker FRAMING MACHINE TENDER 12/30/2015 Office visit Melisa Walker FRAMING MACHINE TENDER 07/25/2015 Office visit Edith Pena FRAMING MACHINE TENDER 03/11/2015 Office visit Edith Pena FRAMING MACHINE TENDER 02/14/2015 Office visit Edith Pena FRAMING MACHINE TENDER 11/25/2014 Office visit Edith Pena FRAMING MACHINE TENDER
--- OUTSIDE RECORDS SUMMARY | 2019-04-16 14:09 | XMS REPORT ---
Author Author Melisa Ball [facility] Address [address] [place], [place] [id number] Care Team Providers Care Student Driving Instructor Name Role Phone Melisa Ball PCP Melisa [...] 2 TIMES PER DAY FOR 30 DAYS clindamycin HCl 300 mg oral capsule 03/25/2018 04/01/2018 take 1 capsule (300 mg) by oral route every 6 hours for 7 days Name Start Date Expiration Date SIG [...] HC BMI BSA BMI Percentile O2 Sat(%) 03/25/2018 8:07:00 AM 121 mmHg 62 mmHg [...] 01/13/2018 12:[address] MAXILLOFACIAL W/DYE Returned 11/25/2014 12:00 AM Orthopedic Consult Reviewed [...] 12:00 AM Dialated Eye Exam- Diabetic Done History Of Immunizations Not available. History of [...] 10:07AM Jaw pain Mar 25 2018 8:09AM Payers Insurance Name Company Name Plan Name Plan Number Policy Number Policy Group Number Start Date Medicare [facility] Medicare [facility] [id number] N/A Cigna Medicare Supplement Cigna Medicare Supplement [id number] Saturday, 2017 Medicare Part A Medicare Part A [id number] Sunday, 2012 [place] [id number] Wednesday, 2012 Medicare Part B Medicare [place] [id number] N/A Medicare Part A Medicare - Lab/Xray [id number] Sunday, September 16, 2012 Medicare [facility] Medicare [facility] [id number] N/A [facility] [id number] N/A History of Encounters Visit Date Visit Type Provider 03/25/2018 Office visit Melisa Ball DISTILLERY MANAGER 01/14/2018 Office visit Melisa Ball DISTILLERY MANAGER 01/13/2018 Office visit Melisa Walker DISTILLERY MANAGER 12/20/2017 Office visit Melisa Walker DISTILLERY MANAGER 10/17/2017 Office visit Melisa Ball DISTILLERY MANAGER 09/03/2017 Office visit Melisa Walker DISTILLERY MANAGER 06/04/2017 Office visit Melisa Walker DISTILLERY MANAGER 04/05/2017 Office visit Melisa Walker DISTILLERY MANAGER 03/08/2017 Office visit Melisa Walker DISTILLERY MANAGER 12/24/2016 Office visit 12/24/2016 Office visit Melisa Ball DISTILLERY MANAGER 12/11/2016 Office visit Melisa Ball DISTILLERY MANAGER 10/08/2016 Office visit Melisa Walker DISTILLERY MANAGER 06/19/2016 Office visit Melisa Walker DISTILLERY MANAGER 02/06/2016 Office visit Melisa Walker DISTILLERY MANAGER 01/05/2016 Office visit Melisa Walker DISTILLERY MANAGER 01/02/2016 Office visit 01/02/2016 Office visit Melisa Walker DISTILLERY MANAGER 12/30/2015 Office visit Melisa Ball DISTILLERY MANAGER 07/25/2015 Office visit Edith Pena DISTILLERY MANAGER 03/11/2015 Office visit Edith Pena DISTILLERY MANAGER 02/14/2015 Office visit Edith Pena DISTILLERY MANAGER 11/25/2014 Office visit Edith Pena DISTILLERY MANAGER
--- OUTSIDE RECORDS SUMMARY | 2019-04-16 14:09 | XMS REPORT ---
Author Author Melisa Ball [facility] Address [address] [place], [place] [address] Care Team Providers Care Sec Accountant Name Role Phone Melisa Ball PCP Unavailable Melisa Ball PreferredProvider Unavailable Allergies and Adverse Reactions Name Reaction [...] (40 mg) by oral route once daily hydrochlorothiazide 25 mg oral tablet 01/30/2016 take 1 tablet (25 mg) by oral route once daily meloxicam 15 mg oral tablet 01/30/2016 1 TAB PO DAILY atenolol 25 mg oral tablet 01/30/2016 take 1 tablet (25 mg) by oral route once daily gabapentin 300 mg oral capsule 01/30/2016 01/24/2017 take 1 capsule (300 mg) by oral route 3 for 90 days Lipitor 40 mg oral tablet 06/08/2016 03/05/2017 TAKE 1 TABLET (40 MG) BY ORAL ROUTE ONCE DAILY gabapentin 300 mg oral capsule 06/19/2016 06/14/2017 take 1 capsule by oral route 3 times a day for 90 days atenolol 25 mg oral tablet 10/01/2016 TAKE 1 TABLET (25 MG) BY ORAL ROUTE ONCE DAILY cyclobenzaprine 10 mg oral tablet 12/11/2016 take 1 tablet by oral route once a day (at bedtime) hydrocodone-acetaminophen 5-325 mg oral tablet 12/11/2016 take 1 tablet by oral route every 6 hours as needed for pain lidocaine 5 % topical adhesive patch,medicated 12/24/2016 apply 1 patch by transdermal route once daily (May wear up to 12hours.) metformin 1,000 mg oral tablet 01/07/2017 TAKE 1 TABLET (1,000 MG) BY ORAL ROUTE 2 TIMES PER DAY WITH MORNING AND EVENING MEALS FOR 90 DAYS Name Start Date Expiration Date SIG Comments metformin 500 mg oral tablet 01/05/2016 02/04/2016 take 2 tablets by oral route 2 times a day for 30 days Requip 0.5 mg oral tablet 01/17/2016 02/16/2016 take 1-2 tablets by oral route once a day (at bedtime) for 30 days metformin 1,000 mg oral tablet 03/29/2016 12/24/2016 take 1 tablet (1,000 mg) by oral route 2 times per day with morning and evening meals for 90 days Discontinued Name Start Date [...] 01/06/2016 Arthritis Active 06/19/2016 Neuropathy Active 06/19/2016 Vital Signs Date Time BP-Sys(mm[Hg] BP-Eden(mm[Hg]) HR(bpm) RR(rpm) Temp WT HT HC BMI BSA BMI Percentile O2 Sat(%) 12/24/2016 8:56:00 AM 120 mmHg 70 mmHg 52 bpm 18 rpm 97 F 172.375 lbs 67 in 27.00 kg/m2 1.92 m2 96 % 12/11/2016 2:35:00 PM 132 mmHg 62 mmHg 56 bpm 18 rpm 98.4 F 174.125 lbs 67 in 27.2716 kg/m 1.9323 m 96 % 10/08/2016 9:10:00 AM 122 mmHg 64 mmHg 48 bpm 18 rpm 97.9 F 174.5 lbs 67 in 27.33 kg/m2 1.93 m2 96 % 06/19/2016 3:15:00 PM 124 mmHg 62 mmHg 50 bpm 18 rpm 96.1 F 187.25 lbs 67 in 29.3272 kg/m 2.0038 m 96 % 02/06/2016 2:13:00 PM 124 mmHg 64 mmHg 83 bpm 18 rpm 97.8 F 191.5 lbs 67 in 29.99 kg/m2 2.03 m2 97 % 01/05/2016 2:09:00 PM 130 mmHg 68 mmHg 62 bpm 97 F 193 lbs 67 in 30.2278 kg/m 2.0343 m 95 % 01/02/2016 10:38:00 AM 134 mmHg 70 mmHg 60 bpm 16 rpm 98.2 F 193 lbs 67 in 30.23 kg/m2 2.03 m2 96 % 12/30/2015 8:47:00 AM 124 mmHg 76 mmHg 57 bpm 17 rpm 97.4 F 194 lbs 67 in 30.3844 kg/m 2.0396 m 97 % 07/25/2015 2:07:00 PM 134 mmHg 78 mmHg 58 bpm 18 rpm 98.1 F 192 lbs 97 % 03/11/2015 9:09:00 AM 128 mmHg 62 mmHg 48 bpm 20 rpm 97.8 F 190 lbs 67 in 29.7579 kg/m 2.0184 m 95 % 02/14/2015 10:47:00 AM 138 mmHg 62 mmHg 48 bpm 18 rpm 98.3 F 187.4 lbs 67 in 29.35 kg/m2 2.00 m2 94 % 11/25/2014 9:58:00 AM 130 mmHg 90 mmHg 60 bpm 16 rpm 96.5 F 192.125 lbs 67 in 30.0907 kg/m 2.0297 m 96 % Social History Name [...] 01/02/2016 12:00 AM GLYCOSYLATED HEMOGLOBIN TEST Returned 05/14/2016 12:00 AM GLYCOSYLATED HEMOGLOBIN TEST Returned 05/14/2016 12:00 AM LIPID PANEL Returned 05/14/2016 12:00 AM COMPREHEN METABOLIC PANEL Returned 10/08/2016 12:00 AM RADEX HAND MINIMUM 3 VIEWS Returned 12/11/2016 12:00 AM Toradol 60 Mg Injection Reviewed 12/24/2016 12:00 AM CYTOPATH C/V THIN LAYER Reviewed 12/24/2016 12:00 AM Pap Specimen Handling - Medicare Reviewed 12/24/2016 12:00 AM MAMMOGRAM BOTH BREASTS Returned 12/24/2016 12:00 AM DXA BONE DENSITY AXIAL Returned 11/25/2014 12:00 AM Orthopedic Consult Reviewed 02/14/2015 12:00 AM STREP A ASSAY W/OPTIC Reviewed 02/14/2015 12:00 AM CULTURE SCREEN ONLY Reviewed 03/11/2015 12:00 AM COMPREHEN METABOLIC PANEL Reviewed 03/11/2015 12:00 AM LIPID PANEL Reviewed 03/11/2015 12:00 AM COMPLETE CBC W/AUTO DIFF WBC Reviewed Results Summary Data and Description Results 02/14/2015 1:32 PM STREP [...] mg/dLTOT CHOL/HDL 2.9 LDL (CALC) 36.0 mg/dL History Of Immunizations Not available. History of Past Illness Name Date of Onset Comments Hypertension Sleep apnea with use of continuous positive airway pressure (CPAP) Endometriosis Ulcerative colitis Hypertension 12/30/2015 Type 2 diabetes mellitus without complication 01/06/2016 Hyperlipidemia, unspecified 01/06/2016 Arthritis 06/19/2016 Neuropathy 06/19/2016 Hypertension Nov 25 2014 10:04AM Hyperlipidemia Nov [...] Post menopausal syndrome Dec 24 2016 8:58AM Payers Insurance Name Company Name Plan Name Plan Number Policy Number Policy Group Number Start Date Medicare RHC Medicare RHC [id number] N/A [place] [facility] [place] [facility] [facility] [place] [id number] N/A Medicare Part A Medicare Part A [id number] Sunday, 2012 [employer] [id number] Wednesday, 2012 Medicare Part B Medicare [facility] [id number] N/A Medicare Part A Medicare - Lab/Xray [id number] Sunday, September 16, 2012 History of Encounters Visit Date Visit Type Provider 12/24/2016 Office visit 12/24/2016 Office visit Melisa Ball DISPATCHER TUGBOAT 12/11/2016 Office visit Melisa Ball DISPATCHER TUGBOAT 10/08/2016 Office visit Melisa Ball DISPATCHER TUGBOAT 06/19/2016 Office visit Melisa Ball DISPATCHER TUGBOAT 02/06/2016 Office visit Melisa Ball DISPATCHER TUGBOAT 01/05/2016 Office visit Melisa Ball DISPATCHER TUGBOAT 01/02/2016 Office visit 01/02/2016 Office visit Melisa Ball DISPATCHER TUGBOAT 12/30/2015 Office visit Melisa Ball DISPATCHER TUGBOAT 07/25/2015 Office visit Edith Pena DISPATCHER TUGBOAT 03/11/2015 Office visit Edith Pena DISPATCHER TUGBOAT 02/14/2015 Office visit Edith Pena DISPATCHER TUGBOAT 11/25/2014 Office visit Edith Pena DISPATCHER TUGBOAT
--- OUTSIDE RECORDS SUMMARY | 2019-04-16 14:10 | XMS REPORT ---
Author Author Edith Pena [facility] Address [address] [place], [place] [address] Care Team Providers Care Supervisor Personnel Clerks Name Role Phone Edith Pena PCP Unavailable Allergies and Adverse Reactions Name Reaction Notes No known drug allergy Plan of Treatment Not available. Medications Active Name Start Date Estimated Completion Date SIG Comments meloxicam 15 mg oral tablet take 1 tablet (15 mg) by oral route once daily pramipexole 0.125 mg oral tablet take 3 tablets by oral route once atorvastatin 10 mg oral tablet take 1 tablet (10 mg) by oral route once daily atenolol 25 mg oral tablet take 1 tablet (25 mg) by oral route once daily hydrochlorothiazide 25 mg oral tablet take 1 tablet (25 mg) by oral route once daily pramipexole 0.125 mg oral tablet 12/15/2014 3 TABS PO NIGHTLY,X30 DAYS meloxicam 15 mg oral tablet 12/15/2014 1 TAB PO DAILY pramipexole 0.125 mg oral tablet 02/25/2015 3 TABS PO NIGHTLY,X30 DAYS Problem List Not available. Vital Signs Date Time BP-Sys(mm[Hg] BP-Eden(mm[Hg]) HR(bpm) RR(rpm) Temp WT HT HC BMI BSA BMI Percentile O2 Sat(%) 07/25/2015 2:07:00 PM 134 mmHg 78 mmHg [...] of Procedures Date Ordered Description Order Status 11/25/2014 12:00 AM Orthopedic Consult Reviewed 02/14/2015 [...] BILI 0.80 mg/dLCALCIUM 9.80 mg/dLeGFR >60 mL/min/1.73 [id number] 201.0 mg/dLCHOLESTEROL 142.0 mg/dLHDL 48.0 mg/dLLDL (CALC) 54.0 mg/dL History Of Immunizations Not available. History of Past Illness Name Date of Onset Comments Hypertension Sleep apnea with use of continuous positive airway pressure (CPAP) Endometriosis Ulcerative colitis Hypertension Nov 25 2014 10:04AM Hyperlipidemia Nov 25 2014 10:04AM Hip pain Nov 25 2014 10:04AM Labral tear of hip, degenerative Nov 25 2014 10:04AM Ulcerative colitis Nov 25 2014 10:04AM Sore throat Lucio 1 2015 10:48AM Exposure to strep throat Feb 14 2015 10:48AM Essential Hypertension Mar 11 2015 9:13AM Hyperlipidemia Mar 11 2015 9:13AM Bradycardia Mar 11 2015 9:13AM UC (ulcerative colitis) Mar 11 2015 9:13AM Lung mass Mar 11 2015 9:13AM Painful skin lesion Jul 25 2015 2:08PM Skin tag Jul 25 2015 2:08PM Skin tag Jul 25 2015 5:28PM Payers Insurance Name Company Name Plan Name Plan Number Policy Number Policy Group Number Start Date Medicare Part A Medicare Part A [id number] Sunday, 2012 [employer] [id number] Wednesday, 2012 Medicare Part B Medicare Of [place] [id number] N/A History of Encounters Visit Date Visit Type Provider 07/25/2015 Office visit Edith Pena WEB PRODUCER 03/11/2015 Office visit Edith Pena WEB PRODUCER 02/14/2015 Office visit Edith Pena WEB PRODUCER 11/25/2014 Office visit Edith Pena WEB PRODUCER
--- OUTSIDE RECORDS SUMMARY | 2019-04-16 14:10 | XMS REPORT ---
Author Author Melisa Ball [facility] Address [address] [place], [place] [id number] Care Team Providers Care Freight Car Cleaner [employer] System Name Role Phone Melisa Ball PCP Unavailable [...] by oral route 3 for 90 days metformin 1,000 mg oral tablet 03/29/2016 12/24/2016 take 1 tablet (1,000 mg) by oral route 2 times per day with morning and evening meals for 90 days Lipitor 40 mg oral tablet 06/08/2016 03/05/2017 TAKE 1 TABLET (40 MG) BY ORAL ROUTE ONCE DAILY Name Start Date Expiration Date SIG Comments metformin 500 mg oral tablet 01/05/2016 02/04/2016 take 2 tablets by oral route 2 times a day for 30 days Requip 0.5 mg oral tablet 01/17/2016 02/16/2016 take 1-2 tablets by oral route once a day (at bedtime) for 30 days Discontinued Name Start Date [...] HC BMI BSA BMI Percentile O2 Sat(%) 02/06/2016 2:13:00 PM 124 mmHg 64 mmHg [...] 05/14/2016 12:00 AM COMPREHEN METABOLIC PANEL Returned 11/25/2014 [...] BILI 0.80 mg/dLCALCIUM 9.80 mg/dLeGFR >60 mL/min/1.73 [id number] 201.0 mg/dLCHOLESTEROL 142.0 mg/dLHDL 48.0 mg/dLLDL (CALC) [...] 0.60 mg/dLCALCIUM 9.70 mg/dLeGFR >60 mL/min/1.73mTSH 2.140 uIU/mL 05/15/2016 8:30 AM Est Avg Glucose 119.8 mg/dLGLUCOSE 95.0 mg/dLSODIUM 142.0 mmol/LPOTASSIUM 4.20 mmol/LCHLORIDE 102.0 mmol/LCO2 27.0 mmol/LBUN 17.0 mg/dLCREATININE 0.90 mg/dLSGOT/AST 16.0 IU/LSGPT/ALT 24.0 IU/LALK PHOS 27.0 IU/LTOTAL PROTEIN 6.10 g/dLALBUMIN 4.20 g/dLTOTAL BILI 0.60 mg/dLCALCIUM 9.60 mg/dLeGFR >60 mL/min/1.73mTRIGLYCERIDES 195.0 mg/dLCHOLESTEROL 115.0 mg/dLHDL 40.0 mg/dLLDL (CALC) 36.0 mg/dL History Of Immunizations Not [...] 2016 3:20PM Hyperlipemia May 14 2016 3:20PM Payers Insurance Name Company Name Plan Name Plan Number Policy Number Policy Group Number Start Date Medicare Part A Medicare [facility] [id number] N/A [place] [facility] [place] [id number] N/A Medicare Part A Medicare Part A [id number] Sunday, 2012 [employer] [id number] Wednesday, 2012 Medicare Part B Medicare Of [place] [id number] N/A Medicare Part A Medicare - Lab/Xray [id number] Sunday, September 16, 2012 History of Encounters Visit Date Visit Type Provider 02/06/2016 Office visit Melisa Ball PHOTOGRAMMETRIC ENGINEER 01/05/2016 Office visit Melisa Ball PHOTOGRAMMETRIC ENGINEER 01/02/2016 Office visit 01/02/2016 Office visit Melisa Ball PHOTOGRAMMETRIC ENGINEER 12/30/2015 Office visit Melisa Ball PHOTOGRAMMETRIC ENGINEER 07/25/2015 Office visit Edith Pena PHOTOGRAMMETRIC ENGINEER 03/11/2015 Office visit Edith Pena PHOTOGRAMMETRIC ENGINEER 02/14/2015 Office visit Edith Pena PHOTOGRAMMETRIC ENGINEER 11/25/2014 Office visit Edith Pena PHOTOGRAMMETRIC ENGINEER
--- OUTSIDE RECORDS SUMMARY | 2019-04-16 14:10 | XMS REPORT ---
Author Author Melisa Ball [facility] Address [address] [place], [place] [address] Care Team Providers Care Accident Report Clerk Name Role Phone Melisa Ball PCP Unavailable [...] NIGHTLY,X30 DAYS atenolol 25 mg oral tablet 12/30/2015 take 1 tablet (25 mg) by oral route once daily hydrochlorothiazide 25 mg oral tablet 12/30/2015 take 1 tablet (25 mg) by oral route once daily meloxicam 15 mg oral tablet 12/30/2015 1 TAB PO DAILY Lipitor 40 mg oral tablet 01/05/2016 take 1 tablet (40 mg) by oral route once daily metformin 500 mg oral tablet 01/05/2016 02/04/2016 take 2 tablets by oral route 2 times a day for 30 days Requip 0.5 mg oral tablet 01/17/2016 02/16/2016 take 1-2 tablets by oral route once a day (at bedtime) for 30 days gabapentin 300 mg oral capsule 01/18/2016 take 1 capsule (300 mg) by oral route 3 times per day Discontinued Name Start Date Discontinued Date SIG [...] BILI 0.80 mg/dLCALCIUM 9.80 mg/dLeGFR >60 mL/min/1.73 [id number] 201.0 mg/dLCHOLESTEROL 142.0 mg/dLHDL 48.0 mg/dLLDL (CALC) [...] Number Start Date Medicare Part A Medicare [facility] [id number] N/A [place] [facility] [place] [facility] [place] [id number] N/A Medicare Part A Medicare Part A [id number] Sunday, 2012 [employer] [id number] Wednesday, 2012 Medicare Part B Medicare Of [place] [id number] N/A Medicare Part A Medicare - Lab/Xray [id number] Sunday, September 16, 2012 History of Encounters Visit Date Visit Type Provider 01/05/2016 Office visit Melisa Ball IT SYSTEMS ANALYST 01/02/2016 Office visit 01/02/2016 Office visit Melisa Ball IT SYSTEMS ANALYST 12/30/2015 Office visit Melisa Ball IT SYSTEMS ANALYST 07/25/2015 Office visit Edith Pena IT SYSTEMS ANALYST 03/11/2015 Office visit Edith Pena IT SYSTEMS ANALYST 02/14/2015 Office visit Edith Pena IT SYSTEMS ANALYST 11/25/2014 Office visit Edith Pena IT SYSTEMS ANALYST
--- OUTSIDE RECORDS SUMMARY | 2019-04-16 14:11 | XMS REPORT ---
Author Author Melisa Ball [facility] Address [address] [place], [place] [address] Care Team Providers Care Ground Service Equipment Mechanic Name Role Phone Melisa Ball PCP Melisa [...] ONCE DAILY gabapentin 300 mg oral capsule 06/26/2017 03/23/2018 TAKE 1 CAPSULE BY ORAL ROUTE 3 TIMES A DAY FOR 90 DAYS hydrochlorothiazide 25 mg oral tablet 10/23/2017 TAKE 1 TABLET (25 MG) BY ORAL ROUTE ONCE DAILY diclofenac sodium 75 mg oral tablet,delayed release (DR/EC) 11/05/2017 take 1 tablet (75 mg) by oral route 2 times per day for 30 days gabapentin 300 mg oral capsule 12/20/2017 TAKE [...] morning and evening meals for 30 days Discontinued Name Start Date [...] HC BMI BSA BMI Percentile O2 Sat(%) 01/14/2018 10:05:00 AM 136 mmHg 74 mmHg [...] 2:17PM Parotitis, acute Jan 14 2018 10:07AM Payers Insurance Name Company Name Plan Name Plan Number Policy Number Policy Group Number Start Date Medicare [facility] Medicare [facility] [id number] N/A Cigna Medicare Supplement Cigna Medicare Supplement [id number] Saturday, 2017 [place] Lucho Nguyen [id number] N/A Medicare Part A Medicare Part A [id number] Sunday, 2012 [employer] [id number] Wednesday, 2012 Medicare Part B Medicare Of [place] [id number] N/A Medicare Part A Medicare - Lab/Xray [id number] Sunday, September 16, 2012 History of Encounters Visit Date Visit Type Provider 01/14/2018 Office visit Melisa Walker CLINICAL OPERATIONS MANAGER 01/13/2018 Office visit Melisa Walker CLINICAL OPERATIONS MANAGER 12/20/2017 Office visit Melisa Walker CLINICAL OPERATIONS MANAGER 10/17/2017 Office visit Melisa Walker CLINICAL OPERATIONS MANAGER 09/03/2017 Office visit Melisa Walker CLINICAL OPERATIONS MANAGER 06/04/2017 Office visit Melisa Walker CLINICAL OPERATIONS MANAGER 04/05/2017 Office visit Melisa Walker CLINICAL OPERATIONS MANAGER 03/08/2017 Office visit Melisa Walker CLINICAL OPERATIONS MANAGER 12/24/2016 Office visit 12/24/2016 Office visit Melisa Walker CLINICAL OPERATIONS MANAGER 12/11/2016 Office visit Melisa Walker CLINICAL OPERATIONS MANAGER 10/08/2016 Office visit Melisa Walker CLINICAL OPERATIONS MANAGER 06/19/2016 Office visit Melisa Walker CLINICAL OPERATIONS MANAGER 02/06/2016 Office visit Melisa Walker CLINICAL OPERATIONS MANAGER 01/05/2016 Office visit Melisa Walker CLINICAL OPERATIONS MANAGER 01/02/2016 Office visit 01/02/2016 Office visit Melisa Walker CLINICAL OPERATIONS MANAGER 12/30/2015 Office visit Melisa Quinn CLINICAL OPERATIONS MANAGER 07/25/2015 Office visit Edith Pena CLINICAL OPERATIONS MANAGER 03/11/2015 Office visit Edith Pena CLINICAL OPERATIONS MANAGER 02/14/2015 Office visit Edith Pena CLINICAL OPERATIONS MANAGER 11/25/2014 Office visit Edith Pena CLINICAL OPERATIONS MANAGER
--- OUTSIDE RECORDS SUMMARY | 2019-04-16 14:12 | XMS REPORT ---
Author Author Edith Pena [facility] Address [address] [place], [place] [address] Care Team Providers Care Corn Chip Maker Name Role Phone Edith Pena PCP Unavailable [...] tablet 02/25/2015 3 TABS PO NIGHTLY,X30 DAYS pramipexole 0.125 mg oral tablet 07/27/2015 3 TABS PO NIGHTLY,X30 DAYS Problem List [...] BILI 0.80 mg/dLCALCIUM 9.80 mg/dLeGFR >60 mL/min/1.73 [id number] 201.0 mg/dLCHOLESTEROL 142.0 mg/dLHDL 48.0 mg/dLLDL (CALC) [...] Date Medicare Part A Medicare Part A [id number] Sunday, 2012 [employer] [id number] Wednesday, 2012 Medicare Part B Medicare Of [place] [id number] N/A History of Encounters Visit Date Visit Type Provider 07/25/2015 Office visit Edith Pena HAZMAT CDL A DRIVER 03/11/2015 Office visit Edith Pena HAZMAT CDL A DRIVER 02/14/2015 Office visit Edith Pena HAZMAT CDL A DRIVER 11/25/2014 Office visit Edith Pena HAZMAT CDL A DRIVER
--- OUTSIDE RECORDS SUMMARY | 2019-04-16 14:12 | XMS REPORT ---
Author Author Melisa Ball [facility] Address [address] [place], [place] [id number] Care Team Providers Care Turbine Operator Name Role Phone Melisa Ball PCP Unavailable [...] HC BMI BSA BMI Percentile O2 Sat(%) 10/08/2016 9:10:00 AM 122 mmHg 64 mmHg [...] AM RADEX HAND MINIMUM 3 VIEWS Returned 11/25/2014 12:00 AM Orthopedic Consult Reviewed [...] Hand pain, left Oct 08 2016 9:12AM Payers Insurance Name Company Name Plan Name Plan Number Policy Number Policy Group Number Start Date Medicare [facility] Medicare [facility] [id number] N/A [place] [employer] [place] [id number] N/A Medicare Part A Medicare Part A [id number] Sunday, 2012 [employer] [id number] Wednesday, 2012 Medicare Part B [place] [id number] N/A Medicare Part A Medicare - Lab/Xray [id number] Sunday, September 16, 2012 History of Encounters Visit Date Visit Type Provider 10/08/2016 Office visit Melisa Ball VP ANALYSIS 06/19/2016 Office visit Melisa Ball VP ANALYSIS 02/06/2016 Office visit Melisa Ball VP ANALYSIS 01/05/2016 Office visit Melisa Ball VP ANALYSIS 01/02/2016 Office visit 01/02/2016 Office visit Melisa Ball VP ANALYSIS 12/30/2015 Office visit Melisa Ball VP ANALYSIS 07/25/2015 Office visit Edith Pena VP ANALYSIS 03/11/2015 Office visit Edith Pena VP ANALYSIS 02/14/2015 Office visit Edith Pena VP ANALYSIS 11/25/2014 Office visit Edith Pena VP ANALYSIS
--- OUTSIDE RECORDS SUMMARY | 2019-04-16 14:12 | XMS REPORT ---
Author Author Melisa Ball [facility] Address [address] [place], [place] [id number] Care Team Providers Care Public Health Director Name Role Phone Melisa Ball PCP Unavailable [...] once daily gabapentin 300 mg oral capsule 06/19/2016 06/14/2017 take 1 capsule by oral route 3 times a day for 90 days hydrochlorothiazide 25 mg oral tablet 02/04/2017 TAKE 1 TABLET (25 MG) BY ORAL ROUTE ONCE DAILY Lipitor 40 mg oral tablet 03/04/2017 TAKE 1 TABLET (40 MG) BY ORAL ROUTE ONCE DAILY meloxicam 15 mg oral tablet 04/02/2017 1 TAB PO DAILY metformin 500 mg oral tablet 04/05/2017 07/04/2017 take 1 tablet (500 mg) by oral route 2 times per day with morning and evening meals for 30 days metformin 500 mg oral tablet 04/05/2017 TAKE 1 TABLET (500 MG) BY ORAL ROUTE 2 TIMES PER DAY WITH MORNING AND EVENING MEALS FOR 30 DAYS Name Start Date Expiration Date SIG Comments metformin 500 mg oral tablet 01/05/2016 02/04/2016 take 2 tablets by oral route 2 times a day for 30 days Requip 0.5 mg oral tablet 01/17/2016 02/16/2016 take 1-2 tablets by oral route once a day (at bedtime) for 30 days gabapentin 300 mg oral capsule 01/30/2016 01/24/2017 [...] every 6 hours as needed for pain Discontinued Name Start Date Discontinued Date SIG Comments atorvastatin 10 mg oral tablet 12/30/2015 take 1 tablet (10 mg) by oral route once daily pramipexole 0.125 mg oral tablet 10/19/2015 12/30/2015 3 TABS PO NIGHTLY,X30 DAYS atenolol 25 mg oral tablet 10/01/2016 03/08/2017 [...] (25 MG) BY ORAL ROUTE ONCE DAILY atenolol 25 mg oral tablet 03/22/2017 04/05/2017 TAKE 1 TABLET (25 MG) BY ORAL ROUTE ONCE DAILY low bp, low HR Problem List Description Status Onset Hypertension Active 12/30/2015 Type 2 diabetes mellitus without complication Active 01/06/2016 Hyperlipidemia, unspecified Active 01/06/2016 Arthritis Active 06/19/2016 Neuropathy Active 06/19/2016 Mixed hyperlipidemia Active 04/05/2017 Essential hypertension Active 04/05/2017 Vital Signs Date Time BP-Sys(mm[Hg] BP-Eden(mm[Hg]) HR(bpm) RR(rpm) Temp WT HT HC BMI BSA BMI Percentile O2 Sat(%) 04/05/2017 9:32:00 AM 134 mmHg 70 mmHg 79 bpm 18 rpm 97.6 F 168.25 lbs 67 in 26.35 kg/m2 1.90 m2 97 % 03/08/2017 8:55:00 AM 108 mmHg 70 mmHg 46 bpm 16 rpm 96.8 F 169 lbs 67 in 26.4689 kg/m 1.9036 m 97 % 12/24/2016 8:56:00 AM [...] AM COMPLETE CBC W/AUTO DIFF WBC Returned 04/05/2017 12:00 AM COMPREHEN METABOLIC PANEL Returned 04/05/2017 12:00 AM LIPID PANEL Returned 11/25/2014 12:00 [...] 0.24 #BASO 0.08 MANUAL DIFF NOT IND History Of Immunizations [...] 2017 9:37AM Arthritis Apr 05 2017 9:37AM Payers Insurance Name Company Name Plan Name Plan Number Policy Number Policy Group Number Start Date Medicare [facility] Medicare [facility] [id number] N/A Cigna Medicare Supplement Cigna Medicare Supplement [id number] Saturday, 2017 Piper Brown Alysia Piper Alys[place] [id number] N/A Medicare Part A Medicare Part A [id number] Sunday, 2012 [employer] [id number] Wednesday, 2012 Medicare Part B [place] [id number] N/[id number] Medicare Part A Medicare - Lab/Xray [id number] Sunday, September 16, 2012 History of Encounters Visit Date Visit Type Provider 04/05/2017 Office visit Melisa Ball DISPENSING OPTICIAN 03/08/2017 Office visit Melisa Ball DISPENSING OPTICIAN 12/24/2016 Office visit 12/24/2016 Office visit Melisa Ball DISPENSING OPTICIAN 12/11/2016 Office visit Mleisa Ball DISPENSING OPTICIAN 10/08/2016 Office visit Melisa Ball DISPENSING OPTICIAN 06/19/2016 Office visit Melisa Ball DISPENSING OPTICIAN 02/06/2016 Office visit Melisa Ball DISPENSING OPTICIAN 01/05/2016 Office visit Melisa Ball DISPENSING OPTICIAN 01/02/2016 Office visit 01/02/2016 Office visit Melisa Ball DISPENSING OPTICIAN 12/30/2015 Office visit Melisa Ball DISPENSING OPTICIAN 07/25/2015 Office visit Edith Pena DISPENSING OPTICIAN 03/11/2015 Office visit Edith Pena DISPENSING OPTICIAN 02/14/2015 Office visit Edith Pena DISPENSING OPTICIAN 11/25/2014 Office visit Edith Pena DISPENSING OPTICIAN
--- OUTSIDE RECORDS SUMMARY | 2019-04-16 14:12 | XMS REPORT ---
Author Author Melisa Ball [facility] Address [address] [place], [place] [phone] Care Team Providers Care Veneer Slicing Machine Operator Name Role Phone Melisa Ball PCP [...] tablet 02/25/2015 3 TABS PO NIGHTLY,X30 DAYS Requip 0.25 mg oral tablet 12/30/2015 take 1 tablet (0.25 mg) by oral route 1-3 hours before bedtime, gave titration if needed atenolol 25 mg oral tablet 12/30/2015 take 1 tablet (25 mg) by oral route once daily hydrochlorothiazide 25 mg oral tablet 12/30/2015 take 1 tablet (25 mg) by oral route once daily meloxicam 15 mg oral tablet 12/30/2015 1 TAB PO DAILY Discontinued Name Start Date Discontinued Date SIG Comments atorvastatin 10 mg oral tablet 12/30/2015 take 1 tablet (10 mg) by oral route once daily pramipexole 0.125 mg oral tablet 10/19/2015 12/30/2015 3 TABS PO NIGHTLY,X30 DAYS Problem List Description Status Onset Hypertension Active 12/30/2015 Vital Signs Date Time BP-Sys(mm[Hg] BP-Eden(mm[Hg]) HR(bpm) RR(rpm) Temp WT HT HC BMI BSA BMI Percentile O2 Sat(%) 01/02/2016 10:38:00 AM 134 mmHg 70 mmHg [...] BILI 0.80 mg/dLCALCIUM 9.80 mg/dLeGFR >60 mL/min/1.73 [id number] 201.0 mg/dLCHOLESTEROL 142.0 mg/dLHDL 48.0 mg/dLLDL (CALC) [...] pressure (CPAP) Endometriosis Ulcerative colitis Hypertension 12/30/2015 Hypertension Nov 25 2014 10:04AM Hyperlipidemia Nov [...] 2016 10:42AM Hyperglycemia Jan 02 2016 12:24PM Payers Insurance Name Company Name Plan Name Plan Number Policy Number Policy Group Number Start Date Medicare Part A Medicare [facility] [id number] N/A [place] [id number] N/A Medicare Part A Medicare Part A [id number] Sunday, 2012 [employer] [id number] Wednesday, 2012 Medicare Part B [place] [id number] N/A Medicare Part A Medicare - Lab/Xray [id number] Sunday, September 16, 2012 History of Encounters Visit Date Visit Type Provider 01/02/2016 Office visit 01/02/2016 Office visit Melisa Ball SIEVE MAKER 12/30/2015 Office visit Melisa Ball SIEVE MAKER 07/25/2015 Office visit Edith Pena SIEVE MAKER 03/11/2015 Office visit Edith Pena SIEVE MAKER 02/14/2015 Office visit Edith Pena SIEVE MAKER 11/25/2014 Office visit Edith Pena SIEVE MAKER
--- OUTSIDE RECORDS SUMMARY | 2019-04-16 14:13 | XMS REPORT ---
Author Author Melisa Ball Organization [facility] Address [address] [place], [place] [phone] Care Team Providers Care Assistant Manager Trainee Name Role Phone Melisa Ball PCP Melisa Ball PreferredProvider Allergies and Adverse Reactions Name Reaction Notes No known drug allergy Plan of Treatment Planned Activity Comments Planned Date Planned Time Plan/Goal CBC With Auto Differential 01/13/2018 12:00 AM CMP (comprehensive metabolic panel) 01/13/2018 12:00 AM CRP 01/13/2018 12:00 AM US SOFT TISSUES HEAD AND NECK 01/13/2018 12:[address] NECK SOFT TISSUE W/CONTRAST 01/13/2018 12:[address] MAXILLOFACIAL W/CONTRAST 01/13/2018 12:00 AM Medications Active Name [...] 3 TIMES A DAY FOR 90 DAYS Name Start Date Expiration [...] HC BMI BSA BMI Percentile O2 Sat(%) 01/13/2018 1:28:00 PM 126 mmHg 68 mmHg [...] 12/20/2017 12:00 AM MAMMOGRAPHY SCREENING, BILATERAL Returned 11/25/2014 12:00 AM Orthopedic Consult Reviewed [...] Left Jaw pain Jan 13 2018 2:17PM Payers Insurance Name Company Name Plan Name Plan Number Policy Number Policy Group Number Start Date Medicare [facility] Medicare [facility] [id number] N/A Cign[employer] Medicare Supplement Cigna Medicare Supplement [id number] Saturday, 2017 [place] Stephanie [place] Piper Stephanie [place] [id number] N/A Medicare Part A Medicare Part A [id number] Sunday, 2012 [employer] [id number] Wednesday, 2012 Medicare Part B [place] [id number] N/A Medicare Part A Medicare - Lab/Xray [id number] Sunday, September 16, 2012 History of Encounters Visit Date Visit Type Provider 01/13/2018 Office visit Melisa Ball EDGE BANDING MACHINE OFFBEARER 12/20/2017 Office visit Melisa Ball EDGE BANDING MACHINE OFFBEARER 10/17/2017 Office visit Melisa Ball EDGE BANDING MACHINE OFFBEARER 09/03/2017 Office visit Melisa Ball EDGE BANDING MACHINE OFFBEARER 06/04/2017 Office visit Melisa Ball EDGE BANDING MACHINE OFFBEARER 04/05/2017 Office visit Melisa Ball EDGE BANDING MACHINE OFFBEARER 03/08/2017 Office visit Melisa Ball EDGE BANDING MACHINE OFFBEARER 12/24/2016 Office visit 12/24/2016 Office visit Melisa Ball EDGE BANDING MACHINE OFFBEARER 12/11/2016 Office visit Melisa Ball EDGE BANDING MACHINE OFFBEARER 10/08/2016 Office visit Melisa Ball EDGE BANDING MACHINE OFFBEARER 06/19/2016 Office visit Melisa Ball EDGE BANDING MACHINE OFFBEARER 02/06/2016 Office visit Melisa Ball EDGE BANDING MACHINE OFFBEARER 01/05/2016 Office visit Melisa Ball EDGE BANDING MACHINE OFFBEARER 01/02/2016 Office visit 01/02/2016 Office visit Melisa Ball EDGE BANDING MACHINE OFFBEARER 12/30/2015 Office visit Melisa Ball EDGE BANDING MACHINE OFFBEARER 07/25/2015 Office visit Edith Pena EDGE BANDING MACHINE OFFBEARER 03/11/2015 Office visit Edith Pena EDGE BANDING MACHINE OFFBEARER 02/14/2015 Office visit Edith Pena EDGE BANDING MACHINE OFFBEARER 11/25/2014 Office visit Edith Pena EDGE BANDING MACHINE OFFBEARER
--- NOTE | 2019-04-16 14:14 | ED Chest Pain ---
General Stated Complaint: VOMITING Source: patient History of Present Illness Date Seen by Provider: Apr 16, 2019 Time Seen by Provider: 13:52 Initial Comments PT ARRIVES FROM DR. YOST'S OFFICE UPSTAIRS PT BEGAN HAVING LEFT UPPER CHEST PAIN YESTERDAY AT 1300 STATES PAIN IS CONSTANT DULL ACHE, AND RATES 4-5/10 PAIN IS WORSE WITH DEEP BREATHING DENIES ACTUAL SHORTNESS OF BREATH C/O NAUSEA AND VOMITING SINCE NOON TODAY PT STATES ON 03/22/19, SHE WENT TO [facility] FOR CHEST PAIN AND SHORTNESS OF BREATH, AND WAS SENT TO [facility] HAD CARDIAC CATH ON 03/22/19 WHICH WAS REPORTEDLY NORMAL, PER PT STATES SHE WAS IN THE HOSPITAL "SATURDAY UNTIL SATURDAY" --HOWEVER, 03/22/19 WAS A SATURDAY STATES SHE SAW PA IN [place] THE FOLLOWING SATURDAY AND WAS DX WITH PNEUMONIA AND PLACED ON UNKNOWN ANTIBIOTIC, WHICH SHE TOOK FOR 7 DAYS WAS ALSO PRESCRIBED HYDROCODONE AT THAT TIME FOR CHEST PAIN--HOWEVER, PT STATES THAT THE HYDROCODONE WAS PRESCRIBED YESTERDAY AND SHE STARTED TAKING IT AT 5:00 PM YESTERDAY, AND HER LAST DOSE WAS AT 0600 PT THINKS HYDROCODONE IS WHAT IS CAUSING NAUSEA/VOMITING STATES SHE FOLLOWED UP WITH DR. YOST THE FOLLOWING SATURDAY "THE " AND WAS STARTED ON PREDNISONE, WHICH SHE FINISHED LAST SATURDAY STILL WITH NON-PRODUCTIVE COUGH NO FEVER NO SHORTNESS OF BREATH NO SWELLING IN LEGS/ FEET OR PAIN IN [place] SAW DR. YOST TODAY IN FOLLOW UP IN OFFICE AND SHE WAS SENT DOWN HERE BY HIM. HE SPOKE WITH BOLT CUTTER, AND WANTS PT WORKED UP FOR CHEST PAIN AND FOR P.E. PCP: BOLT CUTTER AT [facility] CHAIRMAN PRESIDENT AND CHIEF EXECUTIVE OFFICER: DR YOST Allergies and Home Medications Allergies Coded Allergies: No Known Drug Allergies (Unverified , 04/16/19) Home Medications Atorvastatin Calcium 10 Mg Tablet, 10 MG PO HS, (Reported) Cholecalciferol (Vitamin D3) 1,000 Unit Tab.chew, 1,000 UNIT PO BID, (Reported) Diclofenac Sodium 75 Mg Tablet.dr, 75 MG PO BID, (Reported) Gabapentin 300 Mg Capsule, 300 MG PO TID, (Reported) Hydrochlorothiazide 25 Mg Tablet, 25 MG PO DAILY, (Reported) Hydrocodone/Acetaminophen 1 Each Tablet, 1 TAB PO Q4-6HR, (Reported) Magnesium 250 Mg Tablet, 250 MG PO DAILY, (Reported) Red Yeast Rice 600 Mg Tablet, 600 MG PO DAILY, (Reported) Ubidecarenone 100 Mg Capsule, 100 MG PO DAILY, (Reported) Patient Home Medication List Home Medication List Reviewed: Yes Review of Systems Review of Systems Constitutional: No dizziness, No fever EENTM: No Symptoms Reported Respiratory: See HPI, Cough, Other (HURTS TO BREATHE) Cardiovascular: See HPI, Chest Pain; Denies Edema, Denies Irregular Heart Rate, Denies Lightheadedness, Denies Syncope Gastrointestinal: See HPI; Denies Abdominal Pain, Denies Diarrhea; Nausea, Vomiting Genitourinary: No Symptoms Reported Musculoskeletal: no symptoms reported Skin: no symptoms reported Psychiatric/Neurological: No Symptoms Reported Endocrine: No Symptoms Reported Hematologic/Lymphatic: No Symptoms Reported Past Nmtwazw-Upfzsh-Alhtcy Hx Patient Social History Alcohol Use: Denies Use Recreational Drug Use: No Smoking Status: Never a Smoker Recent Foreign Travel: No Contact w/Someone Who Travel: No Past Medical History Surgeries: Yes (CARDIAC CATH 03/2019 AT [facility], NORMAL PER PT ) Respiratory: Yes Pneumonia, Sleep Apnea Cardiac: Yes High Cholesterol, Hypertension Neurological: No 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 oz. kg; BMI Method: General Appearance: No Apparent Distress, WD/WN HEENT: PERRL/EOMI Neck: Full Range of Motion, Normal Inspection, Non Tender, Supple; No Carotid Bruit, No JVD Respiratory: Chest Non Tender, Normal Breath Sounds, No Accessory Muscle Use, No Respiratory Distress Cardiovascular: Regular Rate, Rhythm, No Edema, No JVD, No Murmur, Normal Peripheral Pulses Gastrointestinal: Normal Bowel Sounds, No Organomegaly, No Pulsatile Mass, Non Tender, Soft Extremity: Normal Capillary Refill, Normal Inspection, Normal Range of Motion, Non Tender, No Calf Tenderness, No Pedal Edema Neurologic/Psychiatric: Alert, Oriented x3, No Motor/Sensory Deficits, Normal Mood/Affect, historiography professor II-XII Norm as Tested Skin: Normal Color, Warm/Dry Focused Exam Lactate Level 04/16/19 15:46: Lactic Acid Level 0.88 Lactic Acid Level Laboratory Tests Test 04/16/19 15:46 Lactic Acid Level 0.88 MMOL/L (0.50-2.00) Progress/Results/Core Measures Results/Orders Lab Results Laboratory Tests Test 04/16/19 14:00 04/16/19 15:46 Range/Units White Blood Count 17.8 H 4.3-11.0 10^3/uL Red Blood Count 3.95 L 4.35-5.85 10^6/uL Hemoglobin 11.4 L 11.5-16.0 G/DL Hematocrit 37 35-52 % Mean Corpuscular Volume 93 80-99 FL Mean Corpuscular Hemoglobin 29 25-34 PG Mean Corpuscular Hemoglobin Concent 31 L 32-36 G/DL Red Cell Distribution Width 14.9 H 10.0-14.5 % Platelet Count 554 H 130-400 10^3/uL Mean Platelet Volume 8.5 7.4-10.4 FL Neutrophils (%) (Auto) 84 H 42-75 % Lymphocytes (%) (Auto) 10 L 12-44 % Monocytes (%) (Auto) 4 0-12 % Eosinophils (%) (Auto) 1 0-10 % Basophils (%) (Auto) 0 0-10 % Neutrophils # (Auto) 15.0 H 1.8-7.8 X 10^3 Lymphocytes # (Auto) 1.8 1.0-4.0 X 10^3 Monocytes # (Auto) 0.7 0.0-1.0 X 10^3 Eosinophils # (Auto) 0.2 0.0-0.3 10^3/uL Basophils # (Auto) 0.0 0.0-0.1 10^3/uL Neutrophils % (Manual) 90 % Lymphocytes % (Manual) 6 % Monocytes % (Manual) 3 % Eosinophils % (Manual) 1 % Basophils % (Manual) 0 % Band Neutrophils 0 % Blood Morphology Comment NORMAL Prothrombin Time 13.0 12.2-14.7 SEC INR Comment 1.0 0.8-1.4 Activated Partial Thromboplast Time 29 24-35 SEC Sodium Level 138 135-145 MMOL/L Potassium Level 4.2 3.6-5.0 MMOL/L Chloride Level 98 98-107 MMOL/L Carbon Dioxide Level 27 21-32 MMOL/L Anion Gap 13 5-14 MMOL/L Blood Urea Nitrogen 18 7-18 MG/DL Creatinine 1.08 0.60-1.30 MG/DL Estimat Glomerular Filtration Rate 50 BUN/Creatinine Ratio 17 Glucose Level 116 H 70-105 MG/DL Calcium Level 9.8 8.5-10.1 MG/DL Corrected Calcium 9.7 8.5-10.1 MG/DL Magnesium Level 2.1 1.8-2.4 MG/DL Total Bilirubin 0.6 0.1-1.0 MG/DL Aspartate Amino Transf (AST/SGOT) 17 5-34 U/L Alanine Aminotransferase (ALT/SGPT) 52 0-55 U/L Alkaline Phosphatase 36 L 40-136 U/L Myoglobin 38.6 10.0-92.0 NG/ML Troponin I < 0.028 <0.028 NG/ML B-Type Natriuretic Peptide 90.7 <100.0 PG/ML Total Protein 7.4 6.4-8.2 GM/DL Albumin 4.1 3.2-4.5 GM/DL Amylase Level 55 25-125 U/L Lipase 44 8-78 U/L Lactic Acid Level 0.88 0.50-2.00 MMOL/L My Orders Orders - NORMA MILLER DO Ed Iv/Invasive Line Start (04/16/19 13:52) O2 (04/16/19 13:52) Monitor-Rhythm Ecg Trace Only (04/16/19 13:52) Chest 1 View, Ap/Pa Only (04/16/19 13:52) Amylase (04/16/19 13:52) BNP (04/16/19 13:52) Cbc With Automated Diff (04/16/19 13:52) Comprehensive Metabolic Panel (04/16/19 13:52) Lipase (04/16/19 13:52) Magnesium (04/16/19 13:52) Protime With Inr (04/16/19 13:52) Partial Thromboplastin Time (04/16/19 13:52) Troponin I (04/16/19 13:52) O2 (04/16/19 13:52) Ed Iv/Invasive Line Start (04/16/19 13:52) Ondansetron Injection (Zofran Injectio (04/16/19 14:15) Pantoprazole Injection (Protonix Injecti (04/16/19 14:15) Aspirin Chewable Tablet (Baby Aspirin Ch (04/16/19 14:15) Nitroglycerin 0.4 Mg Btl 25's (Nitrostat (04/16/19 14:15) Myoglobin Serum (04/16/19 14:00) Manual Differential (04/16/19 14:00) Ct Angio Chest W (04/16/19 14:32) Ketorolac Injection (Toradol Injection) (04/16/19 14:45) Iohexol Injection (Omnipaque 350 Mg/Ml 1 (04/16/19 15:00) Received Contrast (Hold Metformin- Contr (04/16/19 15:00) Ns (Ivpb) (Sodium Chloride 0.9% Ivpb Bag (04/16/19 15:00) Lactic Acid Analyzer (04/16/19 15:45) Blood Culture (04/16/19 15:45) Meropenem (Merrem 1000 Mg) (04/16/19 16:00) Vancomycin Injection (Vancomycin Injecti (04/16/19 16:00) Medications Given in ED Current Medications Medications Dose Ordered Sig/Megan Route Start Time Stop Time Status Last Admin Dose Admin Aspirin 324 mg ONCE ONCE PO 04/16/19 14:15 04/16/19 14:16 DC 04/16/19 14:16 324 MG Iohexol 67 ml ONCE ONCE IV 04/16/19 15:00 04/16/19 15:01 DC 04/16/19 15:19 67 ML Ketorolac Tromethamine 30 mg ONCE ONCE IVP 04/16/19 14:45 04/16/19 14:46 DC 04/16/19 14:51 30 MG Nitroglycerin 1 TAB Q 5 MIN X 3 NEEDED PRN SL 04/16/19 14:15 04/16/19 14:17 0.4 MG Ondansetron HCl 8 mg ONCE ONCE IVP 04/16/19 14:15 04/16/19 14:16 DC 04/16/19 14:10 8 MG Pantoprazole 40 mg ONCE ONCE IV 04/16/19 14:15 04/16/19 14:16 DC 04/16/19 14:12 40 MG Sodium Chloride 100 ml ONCE ONCE IV 04/16/19 15:00 04/16/19 15:01 DC 04/16/19 15:20 80 ML Vital Signs/I&O 04/16/19 04/16/19 04/16/19 13:50 13:50 14:20 Temp 96.6 Pulse 68 Resp 20 B/P (MAP) 147/80 (102) Pulse Ox 97 86 O2 Delivery Nasal Cannula Room Air Nasal Cannula O2 Flow Rate 2.0 2.00 Progress Progress Note : Progress Note PT DID HAVE DECREASE IN O2 SATS, PT WITH SHALLOW BREATHING IT HURTS TO TAKE A DEEP BREATH--TORADOL ORDERED. GAVE NTG X 1 WITH MINIMAL RELIEF, FURTHER DOSES HELD DUE TO DECREASE IN BP GIVEN TORADOL WITH IMPROVEMENT IN PAIN Initial ECG Impression Date: Apr 16, 2019 Initial ECG Impression Time: 13:52 Initial ECG Rate: 67 Initial ECG Rhythm: Normal Sinus Initial ECG Impression: Nonspecific Changes (FLATTENED/LOW VOLTAGE TWAVES DIFFUSELY) Initial ECG Comparisson: No Previous ECG Available Diagnostic Imaging Comments CXR--LLL CONSOLIDATION/PNEUMONIA AND PLEURAL EFFUSION--PER RADIOLOGIST REPORT AT 1447 CT CHEST ANGIOGRAM--BILATERAL INFILTRATES --LEFT > RIGHT, WITH LEFT PLEURAL EFFUSION,PER RADIOLOGIST REPORT AT 1545 Reviewed: Reviewed by Me Departure Communication (Admissions) 1545--SPOKE WITH DR. YOST, ADVISES ADMIT. HE REPORTS THAT PT WAS ON LEVAQUIN MOST RECENTLY. ADVISES MEROPENEM + VANCOMYCIN. WANTS PT ADMITTED TO [facility] 1555--SPOKE WITH DR. WARD, HOSPITALIST, ACCEPTS PT FOR ADMIT Impression Primary Impression: Bilateral pneumonia Additional Impressions: Pleural effusion on left Failure of outpatient treatment Left-sided chest pain Hypoxia Sepsis Disposition: ADMITTED INPATIENT Condition: Stable Admissions Decision to Admit Reason: Admit from ER (General) Decision to Admit/Date: Apr 16, 2019 Time/Decision to Admit Time: 15:45 Departure-Patient Inst. Referrals: FER VIRK APRN (Family) Primary Care Physician NORMA MILLER DO Apr 16, 2019 14:14
--- OUTSIDE RECORDS SUMMARY | 2019-04-16 14:14 | XMS REPORT ---
Author Author Melisa Ball [facility] Address [address] [place], [place] [id number] Care Team Providers Care Tobacco Grader Name Role Phone Mleisa Ball PCP Unavailable Allergies and Adverse Reactions Name Reaction Notes No known drug allergy Plan of Treatment Planned Activity Comments Planned Date Planned Time Plan/Goal GLYCOSYLATED HEMOGLOBIN TEST 01/02/2016 12:00 AM Medications Active Name Start Date [...] 12:00 AM ASSAY THYROID STIM HORMONE Returned 11/25/2014 12:00 AM Orthopedic Consult Reviewed [...] BILI 0.80 mg/dLCALCIUM 9.80 mg/dLeGFR >60 mL/min/1.73 [id number] 201.0 mg/dLCHOLESTEROL 142.0 mg/dLHDL 48.0 mg/dLLDL (CALC) [...] mg/dLCALCIUM 9.70 mg/dLeGFR >60 mL/min/1.73mTSH 2.140 uIU/mL History Of Immunizations Not available. History of [...] Number Start Date Medicare Part A Medicare [facility] [id number] N/A [place] [facility] [place] [id number] N/A Medicare Part A Medicare Part A [id number] Sunday, 2012 [employer] [id number] Wednesday, 2012 Medicare Part B [place] [id number] N/A Medicare Part A Medicare - Lab/Xray [id number] Sunday, September 16, 2012 History of Encounters Visit Date Visit Type Provider 01/02/2016 Office visit 01/02/2016 Office visit Melisa Ball IDENTIFICATION PRINTING MACHINE SETTER 12/30/2015 Office visit Melisa Ball IDENTIFICATION PRINTING MACHINE SETTER 07/25/2015 Office visit Edith Pena IDENTIFICATION PRINTING MACHINE SETTER 03/11/2015 Office visit Edith Pena IDENTIFICATION PRINTING MACHINE SETTER 02/14/2015 Office visit Edith Pena IDENTIFICATION PRINTING MACHINE SETTER 11/25/2014 Office visit Edith Pena IDENTIFICATION PRINTING MACHINE SETTER
--- OUTSIDE RECORDS SUMMARY | 2019-04-16 14:14 | XMS REPORT ---
Author Author Edith Pena [facility] Address [address] [place], [place] [id number] Care Team Providers Care Hydraulic Design Engineer Name Role Phone Edith Pena PCP Unavailable Allergies and Adverse Reactions Name Reaction Notes No known drug allergy Plan of Treatment Not available. Medications Active Name Start Date Estimated Completion Date SIG Comments meloxicam oral tablet 15 mg take 1 tablet (15 mg) by oral route once daily pramipexole oral tablet 0.125 mg take 3 tablets by oral route once atorvastatin oral tablet 10 mg take 1 tablet (10 mg) by oral route once daily atenolol oral tablet 25 mg take 1 tablet (25 mg) by oral route once daily hydrochlorothiazide oral tablet 25 mg take 1 tablet (25 mg) by oral route once daily pramipexole oral tablet 0.125 mg 12/15/2014 3 TABS PO NIGHTLY,X30 DAYS meloxicam oral tablet 15 mg 12/15/2014 1 TAB PO DAILY pramipexole oral tablet 0.125 mg 02/25/2015 3 TABS PO NIGHTLY,X30 DAYS Problem List Not available. Vital Signs Date Time BP-Sys(mm[Hg] BP-Eden(mm[Hg]) HR(bpm) RR(rpm) Temp WT HT HC BMI BSA BMI Percentile O2 Sat(%) 03/11/2015 9:09:00 AM 128 mmHg 62 mmHg [...] Comments Tobacco Former smoker 20 years Alcohol History of Procedures Date Ordered Description Order Status 02/14/2015 12:00 AM STREP A ASSAY W/OPTIC [...] BILI 0.80 mg/dLCALCIUM 9.80 mg/dLeGFR >60 mL/min/1.73 [id number] 201.0 mg/dLCHOLESTEROL 142.0 mg/dLHDL 48.0 mg/dLLDL (CALC) [...] 9:13AM Lung mass Mar 11 2015 9:13AM Payers Insurance Name Company Name Plan Name Plan Number Policy Number Policy Group Number Start Date Medicare Part A Medicare Part A [id number] Sunday, 2012 [employer] [id number] Wednesday, 2012 Medicare Part B [place] [id number] N/A History of Encounters Visit Date Visit Type Provider 03/11/2015 Office visit Edith Pena CENTRAL SUPPLY TECH 02/14/2015 Office visit Edith Pena CENTRAL SUPPLY TECH 11/25/2014 Office visit Edith Pena CENTRAL SUPPLY TECH
--- OUTSIDE RECORDS SUMMARY | 2019-04-16 14:14 | XMS REPORT ---
Author Author Melisa Ball [facility] Address [address] [place], [place] [id number] Care Team Providers Care Clerk Analyst Name Role Phone Melisa Ball PCP Melisa [...] once daily hydrochlorothiazide 25 mg oral tablet 02/04/2017 TAKE 1 TABLET (25 MG) BY ORAL ROUTE ONCE DAILY Lipitor 40 mg oral tablet 03/04/2017 TAKE 1 TABLET (40 MG) BY ORAL ROUTE ONCE DAILY meloxicam 15 mg oral tablet 04/02/2017 1 TAB PO DAILY metformin 500 mg oral tablet 04/05/2017 TAKE 1 TABLET (500 MG) BY ORAL ROUTE 2 TIMES PER DAY WITH MORNING AND EVENING MEALS FOR 30 DAYS gabapentin 300 mg oral capsule 06/26/2017 03/23/2018 TAKE 1 CAPSULE BY ORAL ROUTE 3 TIMES A DAY FOR 90 DAYS baclofen 10 mg oral tablet 07/08/2017 take 1 tablet by oral route daily as needed Xanax 0.25 mg oral tablet 09/03/2017 take 1 tablet by oral route BID PRN Name Start Date Expiration Date SIG Comments [...] HC BMI BSA BMI Percentile O2 Sat(%) 09/03/2017 1:13:00 PM 132 mmHg 68 mmHg 58 bpm 16 rpm 97.6 F 173 lbs 67 in 27.10 kg/m2 1.93 m2 96 % 06/04/2017 9:01:00 AM 121 mmHg 84 mmHg 55 bpm 16 rpm 97.3 F 171.375 lbs 67 in 26.8408 kg/m 1.9169 m 97 % 04/05/2017 9:32:00 AM [...] 12:00 AM Toradol 60 Mg Injection Reviewed 11/25/2014 12:00 AM Orthopedic Consult Reviewed [...] 9:03AM Situational anxiety Sep 03 2017 1:14PM Payers Insurance Name Company Name Plan Name Plan Number Policy Number Policy Group Number Start Date Medicare [facility] Medicare [facility] [id number] N/A Cigna Medicare Supplement Cigna Medicare Supplement [id number] Saturday, 2017 [place] [id number] N/A Medicare Part A Medicare Part A [id number] Sunday, 2012 [facility] [id number] Wednesday, 2012 Medicare Part B Medicare Stephanie Jones [id number] N/A Medicare Part A Medicare - Lab/Xray [id number] Sunday, September 16, 2012 History of Encounters Visit Date Visit Type Provider 09/03/2017 Office visit Melisa Ball WILDLIFE BIOSTATION RESEARCH ECOLOGIST 06/04/2017 Office visit Melisa Ball WILDLIFE BIOSTATION RESEARCH ECOLOGIST 04/05/2017 Office visit Melisa Ball WILDLIFE BIOSTATION RESEARCH ECOLOGIST 03/08/2017 Office visit Melisa Ball WILDLIFE BIOSTATION RESEARCH ECOLOGIST 12/24/2016 Office visit 12/24/2016 Office visit Melisa Ball WILDLIFE BIOSTATION RESEARCH ECOLOGIST 12/11/2016 Office visit Melisa Ball WILDLIFE BIOSTATION RESEARCH ECOLOGIST 10/08/2016 Office visit Melisa Ball WILDLIFE BIOSTATION RESEARCH ECOLOGIST 06/19/2016 Office visit Melisa Ball WILDLIFE BIOSTATION RESEARCH ECOLOGIST 02/06/2016 Office visit Melisa Ball WILDLIFE BIOSTATION RESEARCH ECOLOGIST 01/05/2016 Office visit Melisa Ball WILDLIFE BIOSTATION RESEARCH ECOLOGIST 01/02/2016 Office visit 01/02/2016 Office visit Melisa Ball WILDLIFE BIOSTATION RESEARCH ECOLOGIST 12/30/2015 Office visit Melisa Ball WILDLIFE BIOSTATION RESEARCH ECOLOGIST 07/25/2015 Office visit Edith Pena WILDLIFE BIOSTATION RESEARCH ECOLOGIST 03/11/2015 Office visit Edith Pena WILDLIFE BIOSTATION RESEARCH ECOLOGIST 02/14/2015 Office visit Edith Pena WILDLIFE BIOSTATION RESEARCH ECOLOGIST 11/25/2014 Office visit Edith Pena WILDLIFE BIOSTATION RESEARCH ECOLOGIST
[2019-04-16] MEDS ORDERED: ONDANSETRON 4 MG/2 ML (SDV) Z0FRAN IVP ONE (14:15)
[2019-04-16] MEDS ORDERED: PANTOPRAZOLE 40 MG (PROTONIX) VIAL IV ONE (14:15)
[2019-04-16] MEDS ORDERED: NITROGLYCERIN 0.4 MG SL TABS BTL 25'S SL PRN (14:15)
[2019-04-16] MEDS ORDERED: ASPIRIN 81 MG CHEW (CHILDREN'S ASA) PO ONE (14:15)
--- OUTSIDE RECORDS SUMMARY | 2019-04-16 14:15 | XMS REPORT ---
Author Author Melisa Ball [facility] Address [address] [place], [place] [id number] Care Team Providers Care Target Man Name Role Phone Melisa Ball PCP Melisa Ball PreferredProvider Allergies and Adverse Reactions Name Reaction Notes No known drug allergy Plan of Treatment Planned Activity Comments Planned Date Planned Time Plan/Goal CBC With Auto Differential 01/13/2018 12:00 AM CMP (comprehensive metabolic panel) 01/13/2018 12:00 AM CRP 01/13/2018 12:00 AM US SOFT TISSUES HEAD AND NECK 01/13/2018 12:00 AM Medications Active Name Start [...] Left Neck swelling Jan 13 2018 1:29PM Payers Insurance Name Company Name Plan Name Plan Number Policy Number Policy Group Number Start Date Medicare [facility] Medicare [facility] [id number] N/A Cigna Medicare Supplement Cigna Medicare Supplement [id number] Saturday, 2017 [place] [id number] N/A Medicare Part A Medicare Part A [id number] Sunday, 2012 [employer] [id number] Wednesday, 2012 Medicare Part B [place] [id number] N/A Medicare Part A Medicare - Lab/Xray [id number] Sunday, September 16, 2012 History of Encounters Visit Date Visit Type Provider 01/13/2018 Office visit Melisa Ball SECURITY CONTROLS ASSESSOR 12/20/2017 Office visit Melisa Ball SECURITY CONTROLS ASSESSOR 10/17/2017 Office visit Melisa Ball SECURITY CONTROLS ASSESSOR 09/03/2017 Office visit Melisa Ball SECURITY CONTROLS ASSESSOR 06/04/2017 Office visit Melisa Ball SECURITY CONTROLS ASSESSOR 04/05/2017 Office visit Melisa Ball SECURITY CONTROLS ASSESSOR 03/08/2017 Office visit Melisa Ball SECURITY CONTROLS ASSESSOR 12/24/2016 Office visit 12/24/2016 Office visit Melisa Ball SECURITY CONTROLS ASSESSOR 12/11/2016 Office visit Melisa Ball SECURITY CONTROLS ASSESSOR 10/08/2016 Office visit Melisa Ball SECURITY CONTROLS ASSESSOR 06/19/2016 Office visit Melisa Ball SECURITY CONTROLS ASSESSOR 02/06/2016 Office visit Melisa Ball SECURITY CONTROLS ASSESSOR 01/05/2016 Office visit Melisa Ball SECURITY CONTROLS ASSESSOR 01/02/2016 Office visit 01/02/2016 Office visit Melisa Ball SECURITY CONTROLS ASSESSOR 12/30/2015 Office visit Melisa Ball SECURITY CONTROLS ASSESSOR 07/25/2015 Office visit Edith Pena SECURITY CONTROLS ASSESSOR 03/11/2015 Office visit Edith Pena SECURITY CONTROLS ASSESSOR 02/14/2015 Office visit Edith Pena SECURITY CONTROLS ASSESSOR 11/25/2014 Office visit Edith Pena SECURITY CONTROLS ASSESSOR
--- OUTSIDE RECORDS SUMMARY | 2019-04-16 14:16 | XMS REPORT ---
Author Author Melisa Ball [facility] Address [address] [place], [place] [phone] Care Team Providers Care Doctor Osteopathic Name Role Phone Melisa Ball PCP Unavailable Allergies and Adverse Reactions Name Reaction Notes No known drug allergy Plan of Treatment Planned Activity Comments Planned Date Planned Time Plan/Goal MAMMOGRAM BOTH BREASTS 01/02/2016 12:00 AM Medications Active Name Start [...] of Procedures Date Ordered Description Order Status 12/30/2015 12:00 AM COMPLETE CBC W/AUTO DIFF [...] BILI 0.80 mg/dLCALCIUM 9.80 mg/dLeGFR >60 mL/min/1.73 [id number] 201.0 mg/dLCHOLESTEROL 142.0 mg/dLHDL 48.0 mg/dLLDL (CALC) 54.0 mg/dL 01/02/2016 9:25 AM WBC 7.4 RBC 4.67 HGB 14.20 g/dLHCT 42.50 %MCV 91.0 fLMCH 30.40 pgMCHC 33.40 g/dLRDW CV 13.60 %MPV 10.20 fLPLT 251 %NEUT 53.0 %%LYMP 38.30 %%MONO 5.0 %%EOS 2.70 %%BASO 0.90 %#NEUT 3.90 #LYMP 2.82 #MONO 0.37 #EOS 0.20 #BASO 0.07 History Of Immunizations Not available. History of [...] for breast cancer Jan 02 2016 10:42AM Payers Insurance Name Company Name Plan Name Plan Number Policy Number Policy Group Number Start Date Medicare Part A Medicare [facility] [id number] N/A [place] [id number] N/A Medicare Part A Medicare Part A [id number] Sunday, 2012 [employer] [id number] Wednesday, 2012 Medicare Part B [place] [id number] N/A Medicare Part A Medicare - Lab/Xray [id number] Sunday, September 16, 2012 History of Encounters Visit Date Visit Type Provider 01/02/2016 Office visit 01/02/2016 Office visit Melisa Ball TALENT DEVELOPMENT MANAGER 12/30/2015 Office visit Melisa Ball TALENT DEVELOPMENT MANAGER 07/25/2015 Office visit Edith Pena TALENT DEVELOPMENT MANAGER 03/11/2015 Office visit Edith Pena TALENT DEVELOPMENT MANAGER 02/14/2015 Office visit Edith Pena TALENT DEVELOPMENT MANAGER 11/25/2014 Office visit Edith Pena TALENT DEVELOPMENT MANAGER
--- OUTSIDE RECORDS SUMMARY | 2019-04-16 14:16 | XMS REPORT ---
Author Author Melisa Ball [facility] Address [address] [place], [place] [address] Care Team Providers Care Firewall Administrator Name Role Phone Melisa Ball PCP Unavailable [...] BILI 0.80 mg/dLCALCIUM 9.80 mg/dLeGFR >60 mL/min/1.73 [id number] 201.0 mg/dLCHOLESTEROL 142.0 mg/dLHDL 48.0 mg/dLLDL (CALC) [...] Number Start Date Medicare Part A Medicare [facility] [id number] N/A [place] [id number] N/A Medicare Part A Medicare Part A [id number] Sunday, 2012 [employer] [id number] Wednesday, November 14, 2012 Medicare Part B [place] [id number] N/A Medicare Part A Medicare - Lab/Xray [id number] Sunday, September 16, 2012 History of Encounters Visit Date Visit Type Provider 01/02/2016 Office visit 01/02/2016 Office visit Melisa Ball PMP CERTIFIED PROJECT MANAGER 12/30/2015 Office visit Melisa Ball PMP CERTIFIED PROJECT MANAGER 07/25/2015 Office visit Edith Pena PMP CERTIFIED PROJECT MANAGER 03/11/2015 Office visit Edtih Pena PMP CERTIFIED PROJECT MANAGER 02/14/2015 Office visit Edith Pena PMP CERTIFIED PROJECT MANAGER 11/25/2014 Office visit Edith Pena PMP CERTIFIED PROJECT MANAGER
--- OUTSIDE RECORDS SUMMARY | 2019-04-16 14:16 | XMS REPORT ---
Author Author Melisa Ball [facility] Address [address] [place], [place] [phone] Care Team Providers Care Wheelage Clerk Name Role Phone Melisa Ball PCP [...] tablet by oral route daily as needed Name Start Date Expiration Date [...] HC BMI BSA BMI Percentile O2 Sat(%) 06/04/2017 9:01:00 AM 121 mmHg 84 mmHg [...] thoracic back pain Jun 04 2017 9:03AM Payers Insurance Name Company Name Plan Name Plan Number Policy Number Policy Group Number Start Date Medicare RH Medicare [facility] [id number] N/A Cigna Medicare Supplement Cigna Medicare Supplement [id number] Saturday, 2017 Patrick Nguyen [id number] N/A Medicare Part A Medicare Part A [id number] Sunday, 2012 [employer] [id number] Wednesday, 2012 Medicare Part B Medicare [place] [id number] N/A Medicare Part A Medicare - Lab/Xray [id number] Sunday, September 16, 2012 History of Encounters Visit Date Visit Type Provider 06/04/2017 Office visit Melisa Ball INFORMATION TECHNOLOGY SECURITY MANAGER 04/05/2017 Office visit Melisa Ball INFORMATION TECHNOLOGY SECURITY MANAGER 03/08/2017 Office visit Melisa Ball INFORMATION TECHNOLOGY SECURITY MANAGER 12/24/2016 Office visit 12/24/2016 Office visit Melisa Ball INFORMATION TECHNOLOGY SECURITY MANAGER 12/11/2016 Office visit Melisa Ball INFORMATION TECHNOLOGY SECURITY MANAGER 10/08/2016 Office visit Melisa Ball INFORMATION TECHNOLOGY SECURITY MANAGER 06/19/2016 Office visit Melisa Ball INFORMATION TECHNOLOGY SECURITY MANAGER 02/06/2016 Office visit Melisa Ball INFORMATION TECHNOLOGY SECURITY MANAGER 01/05/2016 Office visit Melisa Ball INFORMATION TECHNOLOGY SECURITY MANAGER 01/02/2016 Office visit 01/02/2016 Office visit Melisa Ball INFORMATION TECHNOLOGY SECURITY MANAGER 12/30/2015 Office visit Melisa Ball INFORMATION TECHNOLOGY SECURITY MANAGER 07/25/2015 Office visit Edith Pena INFORMATION TECHNOLOGY SECURITY MANAGER 03/11/2015 Office visit Edith Pena INFORMATION TECHNOLOGY SECURITY MANAGER 02/14/2015 Office visit Edith Pena INFORMATION TECHNOLOGY SECURITY MANAGER 11/25/2014 Office visit Edith Pena INFORMATION TECHNOLOGY SECURITY MANAGER
--- OUTSIDE RECORDS SUMMARY | 2019-04-16 14:16 | XMS REPORT ---
Author Author Edith Pena [facility] Address [address] [place], [place] [phone] Care Team Providers Care Lumber Loader Name Role Phone Edith Pena PCP Unavailable [...] BILI 0.80 mg/dLCALCIUM 9.80 mg/dLeGFR >60 mL/min/1.73 [id number] 201.0 mg/dLCHOLESTEROL 142.0 mg/dLHDL 48.0 mg/dLLDL (CALC) [...] Date Medicare Part A Medicare Part A [id number] Sunday, 2012 [employer] [id number] Wednesday, 2012 Medicare Part B Medicare [place] [id number] N/A History of Encounters Visit Date Visit Type Provider 03/11/2015 Office visit Edith Pena CLINICAL INFORMATICS DIRECTOR 02/14/2015 Office visit Edith Pena CLINICAL INFORMATICS DIRECTOR 11/25/2014 Office visit Edith Pena CLINICAL INFORMATICS DIRECTOR
--- OUTSIDE RECORDS SUMMARY | 2019-04-16 14:17 | XMS REPORT ---
Author Author Melisa Ball [facility] Address [address] [place], [place] [id number] Care Team Providers Care Machinist/Machine Builder Name Role Phone Melisa Ball PCP Unavailable [...] 3 times a day for 90 days Name Start Date Expiration [...] HC BMI BSA BMI Percentile O2 Sat(%) 06/19/2016 3:15:00 PM 124 mmHg 62 mmHg [...] BILI 0.80 mg/dLCALCIUM 9.80 mg/dLeGFR >60 mL/min/1.73 [id number] 201.0 mg/dLCHOLESTEROL 142.0 mg/dLHDL 48.0 mg/dLLDL (CALC) [...] 2016 3:15PM Neuropathy Jun 19 2016 3:15PM Payers Insurance Name Company Name Plan Name Plan Number Policy Number Policy Group Number Start Date Medicare Part A Medicare [facility] [id number] N/A [place] [id number] N/A Medicare Part A Medicare Part A [id number] Sunday, 2012 [employer] [id number] Wednesday, 2012 Medicare Part B Medicare [place] [id number] N/A Medicare Part A Medicare - Lab/Xray [id number] Sunday, September 16, 2012 History of Encounters Visit Date Visit Type Provider 06/19/2016 Office visit Melisa Ball MILKING MACHINE MECHANIC 02/06/2016 Office visit Melisa Ball MILKING MACHINE MECHANIC 01/05/2016 Office visit Melisa Ball MILKING MACHINE MECHANIC 01/02/2016 Office visit 01/02/2016 Office visit Melisa Ball MILKING MACHINE MECHANIC 12/30/2015 Office visit Melisa Ball MILKING MACHINE MECHANIC 07/25/2015 Office visit Edith Pena MILKING MACHINE MECHANIC 03/11/2015 Office visit Edith Pena MILKING MACHINE MECHANIC 02/14/2015 Office visit Edith Pena MILKING MACHINE MECHANIC 11/25/2014 Office visit Edith Pena MILKING MACHINE MECHANIC
--- OUTSIDE RECORDS SUMMARY | 2019-04-16 14:17 | XMS REPORT ---
Author Author Melisa Ball [facility] Address [address] [place], [place] [address] Care Team Providers Care Mitigation Supervisor Name Role Phone Melisa Ball PCP Unavailable [...] BILI 0.80 mg/dLCALCIUM 9.80 mg/dLeGFR >60 mL/min/1.73 [id number] 201.0 mg/dLCHOLESTEROL 142.0 mg/dLHDL 48.0 mg/dLLDL (CALC) [...] Start Date Medicare Part A Medicare RHC [id number] N/A [place] [id number] N/A Medicare Part A Medicare Part A [id number] Sunday, 2012 [employer] [id number] Wednesday, 2012 Medicare Part B Medicare Of [place] [id number] N/A Medicare Part A Medicare - Lab/Xray [id number] Sunday, September 16, 2012 History of Encounters Visit Date Visit Type Provider 01/05/2016 Office visit Melisa Ball FILAMENT CUTTER 01/02/2016 Office visit 01/02/2016 Office visit Melisa Ball FILAMENT CUTTER 12/30/2015 Office visit Melisa Ball FILAMENT CUTTER 07/25/2015 Office visit Edith Pena FILAMENT CUTTER 03/11/2015 Office visit Edith Pena FILAMENT CUTTER 02/14/2015 Office visit Edith Pena FILAMENT CUTTER 11/25/2014 Office visit Edith Pena FILAMENT CUTTER
--- OUTSIDE RECORDS SUMMARY | 2019-04-16 14:18 | XMS REPORT ---
Author Author Melisa Ball [facility] Address [address] [place], [place] [id number] Care Team Providers Care Entry Level Marketing Assistant Name Role Phone Melisa Ball PCP Unavailable [...] Number Start Date Medicare RHC Medicare RHC [id number] N/A [place] [id number] N/A Medicare Part A Medicare Part A [id number] Sunday, 2012 [employer] [id number] Wednesday, 2012 Medicare Part B Medicare [facility] [id number] N/A Medicare Part A Medicare - Lab/Xray [id number] Sunday, September 16, 2012 History of Encounters Visit Date Visit Type Provider 12/24/2016 Office visit 12/24/2016 Office visit Melisa Ball DIESEL ENGINEER 12/11/2016 Office visit Melisa Ball DIESEL ENGINEER 10/08/2016 Office visit Melisa Ball DIESEL ENGINEER 06/19/2016 Office visit Melisa Ball DIESEL ENGINEER 02/06/2016 Office visit Melisa Ball DIESEL ENGINEER 01/05/2016 Office visit Melisa Ball DIESEL ENGINEER 01/02/2016 Office visit 01/02/2016 Office visit Melisa Ball DIESEL ENGINEER 12/30/2015 Office visit Melisa Ball DIESEL ENGINEER 07/25/2015 Office visit Edith Pena DIESEL ENGINEER 03/11/2015 Office visit Edith Pena DIESEL ENGINEER 02/14/2015 Office visit Edith Pena DIESEL ENGINEER 11/25/2014 Office visit Edith Pena DIESEL ENGINEER
--- OUTSIDE RECORDS SUMMARY | 2019-04-16 14:18 | XMS REPORT ---
Author Author Melisa Ball [facility] Address [address] [place], [place] [id number] Care Team Providers Care Legal Instructor Name Role Phone Melisa Ball PCP Unavailable [...] Number Policy Group Number Start Date Medicare [facility] Medicare [facility] [id number] N/A Cigna Medicare Supplement Cigna Medicare Supplement [id number] Saturday, 2017 [place] Pi[place] Stephanie [place] [id number] N/A Medicare Part A Medicare Part A [id number] Sunday, 2012 [id number] Wednesday, 2012 Medicare Part B Medicare Of [place] [id number] N/A Medicare Part A Medicare - Lab/Xray [id number] Sunday, September 16, 2012 History of Encounters Visit Date Visit Type Provider 06/04/2017 Office visit Melisa Ball BINDERY MACHINE SETTER 04/05/2017 Office visit Melisa Ball BINDERY MACHINE SETTER 03/08/2017 Office visit Melisa Ball BINDERY MACHINE SETTER 12/24/2016 Office visit 12/24/2016 Office visit Melisa Quinn BINDERY MACHINE SETTER 12/11/2016 Office visit Melisa Ball BINDERY MACHINE SETTER 10/08/2016 Office visit Melisa Ball BINDERY MACHINE SETTER 06/19/2016 Office visit Melisa Ball BINDERY MACHINE SETTER 02/06/2016 Office visit Melisa Ball BINDERY MACHINE SETTER 01/05/2016 Office visit Melisa Ball BINDERY MACHINE SETTER 01/02/2016 Office visit 01/02/2016 Office visit Melisa Ball BINDERY MACHINE SETTER 12/30/2015 Office visit Melisa Ball BINDERY MACHINE SETTER 07/25/2015 Office visit Edith Pena BINDERY MACHINE SETTER 03/11/2015 Office visit Edith Pena BINDERY MACHINE SETTER 02/14/2015 Office visit Edith Pena BINDERY MACHINE SETTER 11/25/2014 Office visit Edith Pena BINDERY MACHINE SETTER
--- OUTSIDE RECORDS SUMMARY | 2019-04-16 14:19 | XMS REPORT ---
Author Author Melisa Ball [facility] Address [address] [place], [place] [address] Care Team Providers Care Marine Fuel Dock Attendant Name Role Phone Melisa Ball PCP Unavailable Allergies and Adverse Reactions Name Reaction Notes No known drug allergy Plan of Treatment Planned Activity Comments Planned Date Planned Time Plan/Goal GLYCOSYLATED HEMOGLOBIN TEST 05/14/2016 12:00 AM LIPID PANEL 05/14/2016 12:00 AM COMPREHEN METABOLIC PANEL 05/14/2016 12:00 AM Medications Active Name Start Date [...] 90 days Lipitor 40 mg oral tablet 04/18/2016 TAKE 1 TABLET (40 MG) BY ORAL [...] BILI 0.80 mg/dLCALCIUM 9.80 mg/dLeGFR >60 mL/min/1.73 [id number] 201.0 mg/dLCHOLESTEROL 142.0 mg/dLHDL 48.0 mg/dLLDL (CALC) [...] Number Start Date Medicare Part A Medicare [facility] [id number] N/A [place] [id number] N/A Medicare Part A Medicare Part A [id number] Sunday, 2012 [employer] [id number] Wednesday, 2012 Medicare Part B Medicare Of [place] [id number] N/A Medicare Part A Medicare - Lab/Xray [id number] Sunday, September 16, 2012 History of Encounters Visit Date Visit Type Provider 02/06/2016 Office visit Melisa Ball TUGBOAT PILOT 01/05/2016 Office visit Melisa Ball TUGBOAT PILOT 01/02/2016 Office visit 01/02/2016 Office visit Melisa Ball TUGBOAT PILOT 12/30/2015 Office visit Melisa Ball TUGBOAT PILOT 07/25/2015 Office visit Edith Pena TUGBOAT PILOT 03/11/2015 Office visit Edith Pena TUGBOAT PILOT 02/14/2015 Office visit Edith Pena TUGBOAT PILOT 11/25/2014 Office visit Edith Pena TUGBOAT PILOT
--- OUTSIDE RECORDS SUMMARY | 2019-04-16 14:19 | XMS REPORT ---
Author Author Melisa Ball [facility] Address [address] [place], [place] [id number] Care Team Providers Care Cable Splicer Helper Name Role Phone Melisa Ball PCP Melisa Ball PreferredProvider Allergies and Adverse Reactions Name Reaction Notes No known drug allergy Plan of Treatment Planned Activity Comments Planned Date Planned Time Plan/Goal CBC With Auto Differential 01/13/2018 12:00 AM CMP (comprehensive metabolic panel) 01/13/2018 12:00 AM CRP 01/13/2018 12:00 AM US SOFT TISSUES HEAD AND NECK 01/13/2018 12:[address] HEAD W/CONTRAST 01/13/2018 12:[address] NECK SOFT TISSUE [...] Number Policy Group Number Start Date Medicare [facility] Medicare [facility] [id number] N/A Cigna Medicare Supplement Cigna Medicare Supplement [id number] Saturday, 2017 [place] Stephanie [place] Stephanie [place] [id number] N/A Medicare Part A Medicare Part A [id number] Sunday, 2012 [employer] [id number] Wednesday, 2012 Medicare Part B Medicare Of [place] [id number] N/A Medicare Part A Medicare - Lab/Xray [id number] Sunday, September 16, 2012 History of Encounters Visit Date Visit Type Provider 01/13/2018 Office visit Melisa Ball COMPLAINT INVESTIGATIONS OFFICER 12/20/2017 Office visit Melisa Ball COMPLAINT INVESTIGATIONS OFFICER 10/17/2017 Office visit Melisa Ball COMPLAINT INVESTIGATIONS OFFICER 09/03/2017 Office visit Melisa Ball COMPLAINT INVESTIGATIONS OFFICER 06/04/2017 Office visit Melisa Ball COMPLAINT INVESTIGATIONS OFFICER 04/05/2017 Office visit Melisa Ball COMPLAINT INVESTIGATIONS OFFICER 03/08/2017 Office visit Melisa Ball COMPLAINT INVESTIGATIONS OFFICER 12/24/2016 Office visit 12/24/2016 Office visit Melisa Ball COMPLAINT INVESTIGATIONS OFFICER 12/11/2016 Office visit Melisa Ball COMPLAINT INVESTIGATIONS OFFICER 10/08/2016 Office visit Melisa Ball COMPLAINT INVESTIGATIONS OFFICER 06/19/2016 Office visit Melisa Ball COMPLAINT INVESTIGATIONS OFFICER 02/06/2016 Office visit Melisa Ball COMPLAINT INVESTIGATIONS OFFICER 01/05/2016 Office visit Melisa Ball COMPLAINT INVESTIGATIONS OFFICER 01/02/2016 Office visit 01/02/2016 Office visit Melisa Ball COMPLAINT INVESTIGATIONS OFFICER 12/30/2015 Office visit Melisa Ball COMPLAINT INVESTIGATIONS OFFICER 07/25/2015 Office visit Edith Pena COMPLAINT INVESTIGATIONS OFFICER 03/11/2015 Office visit Edith Pena COMPLAINT INVESTIGATIONS OFFICER 02/14/2015 Office visit Edith Pena COMPLAINT INVESTIGATIONS OFFICER 11/25/2014 Office visit Edith Pena COMPLAINT INVESTIGATIONS OFFICER
--- OUTSIDE RECORDS SUMMARY | 2019-04-16 14:20 | XMS REPORT ---
Author Author Melisa Ball [facility] Address [address] [place], [place] [id number] Care Team Providers Care Final Assembler Name Role Phone Melisa Ball PCP Unavailable [...] 2 times a day for 30 days Discontinued Name Start Date [...] BILI 0.80 mg/dLCALCIUM 9.80 mg/dLeGFR >60 mL/min/1.73 [id number] 201.0 mg/dLCHOLESTEROL 142.0 mg/dLHDL 48.0 mg/dLLDL (CALC) [...] Start Date Medicare Part A Medicare RHC [id number] N/A [place] [id number] N/A Medicare Part A Medicare Part A [id number] Sunday, 2012 [employer] [id number] Wednesday, 2012 Medicare Part B Medicare Of [place] [id number] N/A Medicare Part A Medicare - Lab/Xray [id number] Sunday, September 16, 2012 History of Encounters Visit Date Visit Type Provider 01/05/2016 Office visit Melisa Ball MASTIC MAN 01/02/2016 Office visit 01/02/2016 Office visit Melisa Ball MASTIC MAN 12/30/2015 Office visit Melisa Ball MASTIC MAN 07/25/2015 Office visit Edith Pena MASTIC MAN 03/11/2015 Office visit Edith Pena MASTIC MAN 02/14/2015 Office visit Edith Pena MASTIC MAN 11/25/2014 Office visit Edith Pena MASTIC MAN
--- OUTSIDE RECORDS SUMMARY | 2019-04-16 14:20 | XMS REPORT ---
Author Author Melisa Ball [facility] Address [address] [place], [place] [address] Care Team Providers Care Senior Asic Design Engineer Name Role Phone Melisa Ball PCP Melisa [...] Returned 01/13/2018 12:00 AM C-REACTIVE PROTEIN Returned 11/25/2014 12:00 AM Orthopedic Consult Reviewed [...] Number Start Date Medicare RHC Medicare RHC [id number] N/A Cigna Medicare Supplement Cigna Medicare Supplement [id number] Saturday, 2017 [place] Stephanie [place] [id number] N/A Medicare Part A Medicare Part A [id number] Sunday, 2012 [employer] [id number] Wednesday, 2012 Medicare Part B Medicare Of [place] [id number] N/A Medicare Part A Medicare - Lab/Xray [id number] Sunday, September 16, 2012 History of Encounters Visit Date Visit Type Provider 01/13/2018 Office visit Melisa Ball MANAGER OF IT 12/20/2017 Office visit Melisa Ball MANAGER OF IT 10/17/2017 Office visit Melisa Ball MANAGER OF IT 09/03/2017 Office visit Melisa Ball MANAGER OF IT 06/04/2017 Office visit Melisa Ball MANAGER OF IT 04/05/2017 Office visit Melisa Ball MANAGER OF IT 03/08/2017 Office visit Melisa Ball MANAGER OF IT 12/24/2016 Office visit 12/24/2016 Office visit Melisa Ball MANAGER OF IT 12/11/2016 Office visit Melisa Ball MANAGER OF IT 10/08/2016 Office visit Melisa Ball MANAGER OF IT 06/19/2016 Office visit Melisa Ball MANAGER OF IT 02/06/2016 Office visit Melisa Ball MANAGER OF IT 01/05/2016 Office visit Melisa Ball MANAGER OF IT 01/02/2016 Office visit 01/02/2016 Office visit Melisa Ball MANAGER OF IT 12/30/2015 Office visit Melisa Ball MANAGER OF IT 07/25/2015 Office visit Edith Pena MANAGER OF IT 03/11/2015 Office visit Edith Pena MANAGER OF IT 02/14/2015 Office visit Edith Pena MANAGER OF IT 11/25/2014 Office visit Edith Pena MANAGER OF IT
--- OUTSIDE RECORDS SUMMARY | 2019-04-16 14:21 | XMS REPORT ---
Author Author Melisa Ball [facility] Address [address] [place], [place] [phone] Care Team Providers Care Journeyman Molder Name Role Phone Melisa Ball PCP Melisa [...] 2 times per day for 30 days metformin 500 mg oral tablet 12/20/2017 TAKE 1 TABLET (500 MG) BY ORAL ROUTE 2 TIMES PER DAY WITH MORNING AND EVENING MEALS FOR 30 DAYS gabapentin 300 mg oral capsule 12/20/2017 TAKE [...] 1 tablet by oral route BID PRN Problem List Description Status Onset Hypertension Active 12/30/2015 Type 2 diabetes mellitus without complication Active 01/06/2016 Hyperlipidemia, unspecified Active 01/06/2016 Arthritis Active 06/19/2016 Neuropathy Active 06/19/2016 Mixed hyperlipidemia Active 04/05/2017 Essential hypertension Active 04/05/2017 Vital Signs Date Time BP-Sys(mm[Hg] BP-Eden(mm[Hg]) HR(bpm) RR(rpm) Temp WT HT HC BMI BSA BMI Percentile O2 Sat(%) 12/20/2017 8:06:00 AM 134 mmHg 82 mmHg [...] Breast cancer screening Dec 20 2017 8:08AM Payers Insurance Name Company Name Plan Name Plan Number Policy Number Policy Group Number Start Date Medicare RHC Medicare RHC [id number] N/A Cigna Medicare Supplement Cigna Medicare Supplement [id number] Saturday, 2017 [place] [id number] N/A Medicare Part A Medicare Part A [id number] Sunday, 2012 [employer] [id number] Wednesday, 2012 Medicare Part B Medicare [facility] [id number] N/A Medicare Part A Medicare - Lab/Xray [id number] Sunday, September 16, 2012 History of Encounters Visit Date Visit Type Provider 12/20/2017 Office visit Melisa Ball CENTRAL CONTROL ROOM OPERATOR 10/17/2017 Office visit Melisa Ball CENTRAL CONTROL ROOM OPERATOR 09/03/2017 Office visit Melisa Ball CENTRAL CONTROL ROOM OPERATOR 06/04/2017 Office visit Melisa Ball CENTRAL CONTROL ROOM OPERATOR 04/05/2017 Office visit Melisa Ball CENTRAL CONTROL ROOM OPERATOR 03/08/2017 Office visit Melisa Ball CENTRAL CONTROL ROOM OPERATOR 12/24/2016 Office visit 12/24/2016 Office visit Melisa Ball CENTRAL CONTROL ROOM OPERATOR 12/11/2016 Office visit Melisa Ball CENTRAL CONTROL ROOM OPERATOR 10/08/2016 Office visit Melisa Ball CENTRAL CONTROL ROOM OPERATOR 06/19/2016 Office visit Melisa Ball CENTRAL CONTROL ROOM OPERATOR 02/06/2016 Office visit Melisa Ball CENTRAL CONTROL ROOM OPERATOR 01/05/2016 Office visit Melisa Ball CENTRAL CONTROL ROOM OPERATOR 01/02/2016 Office visit 01/02/2016 Office visit Melisa Ball CENTRAL CONTROL ROOM OPERATOR 12/30/2015 Office visit Melisa Ball CENTRAL CONTROL ROOM OPERATOR 07/25/2015 Office visit Edith Pena CENTRAL CONTROL ROOM OPERATOR 03/11/2015 Office visit Edith Pena CENTRAL CONTROL ROOM OPERATOR 02/14/2015 Office visit Edith Pena CENTRAL CONTROL ROOM OPERATOR 11/25/2014 Office visit Edith Pena CENTRAL CONTROL ROOM OPERATOR
--- OUTSIDE RECORDS SUMMARY | 2019-04-16 14:22 | XMS REPORT ---
Author Author Melisa Ball [facility] Address [address] [place], [place] [phone] Care Team Providers Care Greenskeeper Head Name Role Phone Melisa Ball PCP Melisa Ball PreferredProvider Allergies and Adverse Reactions Name Reaction Notes No known drug allergy Plan of Treatment Planned Activity Comments Planned Date Planned Time Plan/Goal MAMMOGRAPHY SCREENING, BILATERAL 12/20/2017 12:00 AM Medications Active Name Start Date [...] 10/17/2017 12:00 AM Physical Therapy Consult Reviewed 11/25/2014 12:00 AM Orthopedic Consult Reviewed [...] Number Start Date Medicare RHC Medicare RHC [id number] N/A Cigna Medicare Supplement Cigna Medicare Supplement [id number] Saturday, 2017 [place] [id number] N/A Medicare Part A Medicare Part A [id number] Sunday, 2012 [facility] [id number] Wednesday, 2012 Medicare Part B Medicare [facility] [id number] N/A Medicare Part A Medicare - Lab/Xray [id number] Sunday, September 16, 2012 History of Encounters Visit Date Visit Type Provider 12/20/2017 Office visit Melisa Ball GENETICS TEACHER 10/17/2017 Office visit Melisa Ball GENETICS TEACHER 09/03/2017 Office visit Melisa Ball GENETICS TEACHER 06/04/2017 Office visit Melisa Ball GENETICS TEACHER 04/05/2017 Office visit Melisa Ball GENETICS TEACHER 03/08/2017 Office visit Melisa Ball GENETICS TEACHER 12/24/2016 Office visit 12/24/2016 Office visit Melisa Ball GENETICS TEACHER 12/11/2016 Office visit Melisa Ball GENETICS TEACHER 10/08/2016 Office visit Melisa Ball GENETICS TEACHER 06/19/2016 Office visit Melisa Ball GENETICS TEACHER 02/06/2016 Office visit Melisa Ball GENETICS TEACHER 01/05/2016 Office visit Melisa Ball GENETICS TEACHER 01/02/2016 Office visit 01/02/2016 Office visit Melisa Ball GENETICS TEACHER 12/30/2015 Office visit Melisa Ball GENETICS TEACHER 07/25/2015 Office visit Edith Pena GENETICS TEACHER 03/11/2015 Office visit Edith Pena GENETICS TEACHER 02/14/2015 Office visit Edith Pena GENETICS TEACHER 11/25/2014 Office visit Edith Pena GENETICS TEACHER
--- OUTSIDE RECORDS SUMMARY | 2019-04-16 14:22 | XMS REPORT ---
Author Author Melisa Ball [facility] Address [address] [place], [place] [address] Care Team Providers Care Regional Environmental Manager Name Role Phone Melisa Ball PCP Unavailable [...] 3 times a day for 90 days cyclobenzaprine 10 mg oral tablet 12/11/2016 [...] MORNING AND EVENING MEALS FOR 90 DAYS hydrochlorothiazide 25 mg oral tablet 02/04/2017 TAKE 1 TABLET (25 MG) BY ORAL ROUTE ONCE DAILY Lipitor 40 mg oral tablet 03/04/2017 TAKE 1 TABLET (40 MG) BY ORAL ROUTE ONCE DAILY phentermine 37.5 mg oral tablet 03/08/2017 take one-half tablet (18.75 mg) by oral route once daily before breakfast Name Start Date Expiration Date SIG Comments [...] (40 MG) BY ORAL ROUTE ONCE DAILY Discontinued Name Start Date Discontinued Date SIG Comments atorvastatin 10 mg oral tablet 12/30/2015 take 1 tablet (10 mg) by oral route once daily pramipexole 0.125 mg oral tablet 10/19/2015 12/30/2015 3 TABS PO NIGHTLY,X30 DAYS atenolol 25 mg oral tablet 10/01/2016 03/08/2017 TAKE 1 TABLET (25 MG) BY ORAL ROUTE ONCE DAILY Problem List Description Status Onset Hypertension Active 12/30/2015 Type 2 diabetes mellitus without complication Active 01/06/2016 Hyperlipidemia, unspecified Active 01/06/2016 Arthritis Active 06/19/2016 Neuropathy Active 06/19/2016 Vital Signs Date Time BP-Sys(mm[Hg] BP-Eden(mm[Hg]) HR(bpm) RR(rpm) Temp WT HT HC BMI BSA BMI Percentile O2 Sat(%) 03/08/2017 8:55:00 AM 108 mmHg 70 mmHg [...] 12:00 AM DXA BONE DENSITY AXIAL Reviewed 11/25/2014 12:00 AM Orthopedic Consult Reviewed [...] 8:57AM Mixed hyperlipidemia Mar 08 2017 8:57AM Payers Insurance Name Company Name Plan Name Plan Number Policy Number Policy Group Number Start Date Medicare RHC Medicare RHC [id number] N/A [place] [id number] N/A Medicare Part A Medicare Part A [id number] Sunday, 2012 [employer] [id number] Wednesday, 2012 Medicare Part B Medicare Of [place] [id number] N/A Medicare Part A Medicare - Lab/Xray [id number] Sunday, September 16, 2012 History of Encounters Visit Date Visit Type Provider 03/08/2017 Office visit Melisa Ball AUDIO VISUAL COORDINATOR 12/24/2016 Office visit 12/24/2016 Office visit Melisa Ball AUDIO VISUAL COORDINATOR 12/11/2016 Office visit Melisa Ball AUDIO VISUAL COORDINATOR 10/08/2016 Office visit Melisa Ball AUDIO VISUAL COORDINATOR 06/19/2016 Office visit Melisa Ball AUDIO VISUAL COORDINATOR 02/06/2016 Office visit Melisa Ball AUDIO VISUAL COORDINATOR 01/05/2016 Office visit Melisa Ball AUDIO VISUAL COORDINATOR 01/02/2016 Office visit 01/02/2016 Office visit Melisa Ball AUDIO VISUAL COORDINATOR 12/30/2015 Office visit Melisa Ball AUDIO VISUAL COORDINATOR 07/25/2015 Office visit Edith Pena AUDIO VISUAL COORDINATOR 03/11/2015 Office visit Edith Pena AUDIO VISUAL COORDINATOR 02/14/2015 Office visit Edith Pena AUDIO VISUAL COORDINATOR 11/25/2014 Office visit Edith Pena AUDIO VISUAL COORDINATOR
--- OUTSIDE RECORDS SUMMARY | 2019-04-16 14:23 | XMS REPORT ---
Author Author Melisa Ball [facility] Address [address] [place], [place] [address] Care Team Providers Care Mis Director Name Role Phone eMlisa Ball PCP Melisa Ball PreferredProvider Allergies and [...] (40 MG) BY ORAL ROUTE ONCE DAILY metformin 500 mg oral tablet 04/05/2017 [...] 1 tablet by oral route BID PRN hydrochlorothiazide 25 mg oral tablet 10/23/2017 TAKE 1 TABLET (25 MG) BY ORAL ROUTE ONCE DAILY diclofenac sodium 75 mg oral tablet,delayed release (DR/EC) 11/05/2017 take 1 tablet (75 mg) by oral route 2 times per day for 30 days Name Start Date Expiration [...] tablet 04/02/2017 11/05/2017 1 TAB PO DAILY Problem List Description Status Onset Hypertension Active 12/30/2015 Type 2 diabetes mellitus without complication Active 01/06/2016 Hyperlipidemia, unspecified Active 01/06/2016 Arthritis Active 06/19/2016 Neuropathy Active 06/19/2016 Mixed hyperlipidemia Active 04/05/2017 Essential hypertension Active 04/05/2017 Vital Signs Date Time BP-Sys(mm[Hg] BP-Eden(mm[Hg]) HR(bpm) RR(rpm) Temp WT HT HC BMI BSA BMI Percentile O2 Sat(%) 10/17/2017 9:26:00 AM 124 mmHg 70 mmHg [...] Other chronic pain Oct 17 2017 9:29AM Payers Insurance Name Company Name Plan Name Plan Number Policy Number Policy Group Number Start Date Medicare RHC Medicare RHC [id number] N/A Cigna Medicare Supplement Cigna Medicare Supplement [id number] Saturday, 2017 [place] [id number] N/A Medicare Part A Medicare Part A [id number] Sunday, 2012 [employer] [id number] Wednesday, 2012 Medicare Part B Medicare [facility] [id number] N/A Medicare Part A Medicare - Lab/Xray [id number] Sunday, September 16, 2012 History of Encounters Visit Date Visit Type Provider 10/17/2017 Office visit Melisa Ball VICE PRESIDENT OF NEWS 09/03/2017 Office visit Melisa Ball VICE PRESIDENT OF NEWS 06/04/2017 Office visit Melisa Ball VICE PRESIDENT OF NEWS 04/05/2017 Office visit Melisa Ball VICE PRESIDENT OF NEWS 03/08/2017 Office visit Melisa Ball VICE PRESIDENT OF NEWS 12/24/2016 Office visit 12/24/2016 Office visit Melisa Ball VICE PRESIDENT OF NEWS 12/11/2016 Office visit Melisa Ball VICE PRESIDENT OF NEWS 10/08/2016 Office visit Melisa Ball VICE PRESIDENT OF NEWS 06/19/2016 Office visit Melisa Ball VICE PRESIDENT OF NEWS 02/06/2016 Office visit Melisa Ball VICE PRESIDENT OF NEWS 01/05/2016 Office visit Melisa Ball VICE PRESIDENT OF NEWS 01/02/2016 Office visit 01/02/2016 Office visit Melisa Ball VICE PRESIDENT OF NEWS 12/30/2015 Office visit Melisa Ball VICE PRESIDENT OF NEWS 07/25/2015 Office visit Edith Pena VICE PRESIDENT OF NEWS 03/11/2015 Office visit Edith Pena VICE PRESIDENT OF NEWS 02/14/2015 Office visit Edith Pena VICE PRESIDENT OF NEWS 11/25/2014 Office visit Edith Pena VICE PRESIDENT OF NEWS
--- OUTSIDE RECORDS SUMMARY | 2019-04-16 14:23 | XMS REPORT ---
Author Author Melisa Ball [facility] Address [address] [place], [place] [id number] Care Team Providers Care Manager Program Management Name Role Phone Melisa Ball PCP Unavailable [...] BILI 0.80 mg/dLCALCIUM 9.80 mg/dLeGFR >60 mL/min/1.73 [id number] 201.0 mg/dLCHOLESTEROL 142.0 mg/dLHDL 48.0 mg/dLLDL (CALC) [...] Start Date Medicare Part A Medicare RHC [id number] N/A [place] Stephanie Hatfield [place] [id number] N/A Medicare Part A Medicare Part A [id number] Sunday, 2012 [employer] [id number] Wednesday, 2012 Medicare Part B Medicare Of [place] [id number] N/A Medicare Part A Medicare - Lab/Xray [id number] Sunday, September 16, 2012 History of Encounters Visit Date Visit Type Provider 01/05/2016 Office visit Melisa Ball WARRANTY COORDINATOR 01/02/2016 Office visit 01/02/2016 Office visit Melisa Ball WARRANTY COORDINATOR 12/30/2015 Office visit Melisa Ball WARRANTY COORDINATOR 07/25/2015 Office visit Edith Pena WARRANTY COORDINATOR 03/11/2015 Office visit Edith Pena WARRANTY COORDINATOR 02/14/2015 Office visit Edith Pena WARRANTY COORDINATOR 11/25/2014 Office visit Edith Pena WARRANTY COORDINATOR
[2019-04-16 14:24] LABS: BAND NEUTROPHILS 0 %; BASOPHILS % (MANUAL) 0 %; EOSINOPHILS % (MANUAL) 1 %; LYMPHOCYTES % (MANUAL) 6 %; MONOCYTES % (MANUAL) 3 %; NEUTROPHILS % (MANUAL) 90 %; RBC MORPH NORMAL
--- OUTSIDE RECORDS SUMMARY | 2019-04-16 14:24 | XMS REPORT ---
Author Author Melisa Ball [facility] Address [address] [place], [place] [id number] Care Team Providers Care Traffic Lieutenant Name Role Phone Melisa Ball PCP Unavailable [...] BILI 0.80 mg/dLCALCIUM 9.80 mg/dLeGFR >60 mL/min/1.73 [id number] 201.0 mg/dLCHOLESTEROL 142.0 mg/dLHDL 48.0 mg/dLLDL (CALC) [...] >60 mL/min/1.73mTSH 2.140 uIU/mLHemoglobin A1c 7.30 % 05/15/2016 8:30 AM HGB A1C 5.80 %Est [...] Start Date Medicare Part A Medicare RHC [id number] N/A [place] [id number] N/A Medicare Part A Medicare Part A [id number] Sunday, 2012 [employer] [id number] Wednesday, 2012 Medicare Part B Medicare Of [place] [id number] N/A Medicare Part A Medicare - Lab/Xray [id number] Sunday, September 16, 2012 History of Encounters Visit Date Visit Type Provider 02/06/2016 Office visit Melisa Ball RIG BUILDER HELPER 01/05/2016 Office visit Melisa Ball RIG BUILDER HELPER 01/02/2016 Office visit 01/02/2016 Office visit Melisa Ball RIG BUILDER HELPER 12/30/2015 Office visit Melisa Ball RIG BUILDER HELPER 07/25/2015 Office visit Edith Pena RIG BUILDER HELPER 03/11/2015 Office visit Edith Pena RIG BUILDER HELPER 02/14/2015 Office visit Edith Pena RIG BUILDER HELPER 11/25/2014 Office visit Edith Pena RIG BUILDER HELPER
--- OUTSIDE RECORDS SUMMARY | 2019-04-16 14:24 | XMS REPORT ---
Author Author Melisa Ball [facility] Address [address] [place], [place] [phone] Care Team Providers Care Entry Tech Name Role Phone Melisa Ball PCP Unavailable [...] (40 mg) by oral route once daily Requip 0.5 mg oral tablet 01/17/2016 02/16/2016 [...] oral route 3 for 90 days metformin 500 mg oral tablet 02/06/2016 TAKE 2 TABLETS BY ORAL ROUTE 2 TIMES A DAY FOR 30 DAYS Name Start Date [...] BILI 0.80 mg/dLCALCIUM 9.80 mg/dLeGFR >60 mL/min/1.73 [id number] 201.0 mg/dLCHOLESTEROL 142.0 mg/dLHDL 48.0 mg/dLLDL (CALC) [...] mellitus without complication Feb 06 2016 2:15PM Payers Insurance Name Company Name Plan Name Plan Number Policy Number Policy Group Number Start Date Medicare Part A Medicare [facility] [id number] N/A [place] [id number] N/A Medicare Part A Medicare Part A [id number] Sunday, 2012 [employer] [id number] Wednesday, 2012 Medicare Part B Medicare [facility] [id number] N/A Medicare Part A Medicare - Lab/Xray [id number] Sunday, September 16, 2012 History of Encounters Visit Date Visit Type Provider 02/06/2016 Office visit Melisa Ball FINANCIAL ADMINISTRATIVE ASSISTANT 01/05/2016 Office visit Melisa Ball FINANCIAL ADMINISTRATIVE ASSISTANT 01/02/2016 Office visit 01/02/2016 Office visit Melisa Ball FINANCIAL ADMINISTRATIVE ASSISTANT 12/30/2015 Office visit Melisa Ball FINANCIAL ADMINISTRATIVE ASSISTANT 07/25/2015 Office visit Edith Pena FINANCIAL ADMINISTRATIVE ASSISTANT 03/11/2015 Office visit Edith Pena FINANCIAL ADMINISTRATIVE ASSISTANT 02/14/2015 Office visit Edith Pena FINANCIAL ADMINISTRATIVE ASSISTANT 11/25/2014 Office visit Edith Pena FINANCIAL ADMINISTRATIVE ASSISTANT
[2019-04-16 14:25] LABS: ALANINE AMINOTRANSFERASE 52 U/L (0-55); ALBUMIN 4.1 GM/DL (3.2-4.5); ALKALINE PHOSPHATASE 36 U/L (40-136); AMYLASE 55 U/L (25-125); BILIRUBIN,TOTAL 0.6 MG/DL (0.1-1.0); BUN/CREATININE RATIO 17; CALCIUM 9.8 MG/DL (8.5-10.1); CARBON DIOXIDE 27 MMOL/L (21-32); CHLORIDE 98 MMOL/L (98-107); CREATININE SERUM 1.08 MG/DL (0.60-1.30); GFR ESTIMATED 50; GLUCOSE 116 MG/DL (70-105); LIPASE 44 U/L (8-78); MAGNESIUM 2.1 MG/DL (1.8-2.4); POTASSIUM 4.2 MMOL/L (3.6-5.0); SODIUM 138 MMOL/L (135-145); TOTAL PROTEIN 7.4 GM/DL (6.4-8.2)
--- OUTSIDE RECORDS SUMMARY | 2019-04-16 14:25 | XMS REPORT ---
Author Author Melisa Ball [facility] Address [address] [place], [place] [id number] Care Team Providers Care Pet Caretaker Name Role Phone Melisa Ball PCP Unavailable Melisa Ball PreferredProvider Unavailable Allergies and Adverse Reactions Name Reaction Notes No known drug allergy Plan of Treatment Planned Activity Comments Planned Date Planned Time Plan/Goal CBC With Auto Differential 04/05/2017 12:00 AM CMP (comprehensive metabolic panel) 04/05/2017 12:00 AM .Lipid Panel 04/05/2017 12:00 AM Medications Active Name Start Date [...] morning and evening meals for 30 days Name Start Date Expiration [...] Date Medicare [facility] Medicare [facility] [id number] N/A [place] [id number] N/A Medicare Part A Medicare Part A [id number] Sunday, 2012 [place] [id number] Wednesday, 2012 Medicare Part B Medicare [place] [id number] N/A Medicare Part A Medicare - Lab/Xray [id number] Sunday, September 16, 2012 History of Encounters Visit Date Visit Type Provider 04/05/2017 Office visit Melisa Ball ETHANOL OPERATOR 03/08/2017 Office visit Melisa Ball ETHANOL OPERATOR 12/24/2016 Office visit 12/24/2016 Office visit Melisa Ball ETHANOL OPERATOR 12/11/2016 Office visit Melisa Ball ETHANOL OPERATOR 10/08/2016 Office visit Melisa Ball ETHANOL OPERATOR 06/19/2016 Office visit Melisa Ball ETHANOL OPERATOR 02/06/2016 Office visit Melisa Ball ETHANOL OPERATOR 01/05/2016 Office visit Melisa Ball ETHANOL OPERATOR 01/02/2016 Office visit 01/02/2016 Office visit Melisa Ball ETHANOL OPERATOR 12/30/2015 Office visit Melisa Ball ETHANOL OPERATOR 07/25/2015 Office visit Edith Pena ETHANOL OPERATOR 03/11/2015 Office visit Edith Pena ETHANOL OPERATOR 02/14/2015 Office visit Edith Pena ETHANOL OPERATOR 11/25/2014 Office visit Edith Pena ETHANOL OPERATOR
--- OUTSIDE RECORDS SUMMARY | 2019-04-16 14:25 | XMS REPORT ---
Author Author Melisa Ball [facility] Address [address] [place], [place] [phone] Care Team Providers Care Unix Administrator Name Role Phone Melisa Ball PCP [...] HC BMI BSA BMI Percentile O2 Sat(%) 12/11/2016 2:35:00 PM 132 mmHg 62 mmHg [...] thoracic back pain Dec 11 2016 2:38PM Payers Insurance Name Company Name Plan Name Plan Number Policy Number Policy Group Number Start Date Medicare RHC Medicare RHC [id number] N/A [place] Stephanie Hatfield [place] [id number] N/A Medicare Part A Medicare Part A [id number] Sunday, 2012 [employer] [id number] Wednesday, 2012 Medicare Part B Medicare Of [place] [id number] N/A Medicare Part A Medicare - Lab/Xray [id number] Sunday, September 16, 2012 History of Encounters Visit Date Visit Type Provider 12/11/2016 Office visit Melisa Ball PROJECT SAFETY MANAGER 10/08/2016 Office visit Melisa Ball PROJECT SAFETY MANAGER 06/19/2016 Office visit Melisa Ball PROJECT SAFETY MANAGER 02/06/2016 Office visit Melisa Ball PROJECT SAFETY MANAGER 01/05/2016 Office visit Melisa Ball PROJECT SAFETY MANAGER 01/02/2016 Office visit 01/02/2016 Office visit Melisa Ball PROJECT SAFETY MANAGER 12/30/2015 Office visit Melisa Ball PROJECT SAFETY MANAGER 07/25/2015 Office visit Edith Pena PROJECT SAFETY MANAGER 03/11/2015 Office visit Edith Pena PROJECT SAFETY MANAGER 02/14/2015 Office visit Edith Pena PROJECT SAFETY MANAGER 11/25/2014 Office visit Edith Pena PROJECT SAFETY MANAGER
--- OUTSIDE RECORDS SUMMARY | 2019-04-16 14:26 | XMS REPORT ---
Author Author Melisa Ball [facility] Address [address] [place], [place] [phone] Care Team Providers Care Drip Pumper Name Role Phone Melisa Ball PCP Unavailable [...] Number Policy Group Number Start Date Medicare [facility] Medicare [facility] [id number] N/A [place] [id number] N/A Medicare Part A Medicare Part A [id number] Sunday, 2012 [employer] [id number] Wednesday, 2012 Medicare Part B Medicare [place] [id number] N/A Medicare Part A Medicare - Lab/Xray [id number] Sunday, September 16, 2012 History of Encounters Visit Date Visit Type Provider 10/08/2016 Office visit Melisa Ball QUILL BUNCHER AND SORTER 06/19/2016 Office visit Melisa Ball QUILL BUNCHER AND SORTER 02/06/2016 Office visit Melisa Ball QUILL BUNCHER AND SORTER 01/05/2016 Office visit Melisa Ball QUILL BUNCHER AND SORTER 01/02/2016 Office visit 01/02/2016 Office visit Melisa Ball QUILL BUNCHER AND SORTER 12/30/2015 Office visit Melisa Ball QUILL BUNCHER AND SORTER 07/25/2015 Office visit Edith Pena QUILL BUNCHER AND SORTER 03/11/2015 Office visit Edith Pena QUILL BUNCHER AND SORTER 02/14/2015 Office visit Edith Pena QUILL BUNCHER AND SORTER 11/25/2014 Office visit Edith Pena QUILL BUNCHER AND SORTER
--- OUTSIDE RECORDS SUMMARY | 2019-04-16 14:26 | XMS REPORT ---
Author Author Melisa Ball [facility] Address [address] [place], [place] [phone] Care Team Providers Care Steam Shovel Engineer Name Role Phone Melisa Ball PCP Unavailable [...] BILI 0.80 mg/dLCALCIUM 9.80 mg/dLeGFR >60 mL/min/1.73 [id number] 201.0 mg/dLCHOLESTEROL 142.0 mg/dLHDL 48.0 mg/dLLDL (CALC) [...] Date Medicare Part A Medicare [facility] [id number] N/A [place] [id number] N/A Medicare Part A Medicare Part A [id number] Sunday, 2012 [employer] [id number] Wednesday, 2012 Medicare Part B Medicare Of [place] [id number] N/A Medicare Part A Medicare - Lab/Xray [id number] Sunday, September 16, 2012 History of Encounters Visit Date Visit Type Provider 01/02/2016 Office visit 01/02/2016 Office visit Melisa Ball PROGRAMMING COORDINATOR 12/30/2015 Office visit Melisa Ball PROGRAMMING COORDINATOR 07/25/2015 Office visit Edith Pena PROGRAMMING COORDINATOR 03/11/2015 Office visit Edith Pena PROGRAMMING COORDINATOR 02/14/2015 Office visit Edith Pena PROGRAMMING COORDINATOR 11/25/2014 Office visit Edith Pena PROGRAMMING COORDINATOR
--- OUTSIDE RECORDS SUMMARY | 2019-04-16 14:26 | XMS REPORT ---
Author Author Melisa Ball [facility] Address [address] [place], [place] [address] Care Team Providers Care Consumer Affairs Specialist Name Role Phone Melisa Ball PCP Unavailable [...] Number Start Date Medicare RHC Medicare RHC [id number] N/A [place] Stephanie Hatfield [place] [id number] N/A Medicare Part A Medicare Part A [id number] Sunday, 2012 [employer] [id number] Wednesday, 2012 Medicare Part B Medicare Of [place] [id number] N/A Medicare Part A Medicare - Lab/Xray [id number] Sunday, September 16, 2012 History of Encounters Visit Date Visit Type Provider 12/11/2016 Office visit Melisa Ball SULFURIC ACID PLANT SUPERVISOR 10/08/2016 Office visit Melisa Ball SULFURIC ACID PLANT SUPERVISOR 06/19/2016 Office visit Melisa Ball SULFURIC ACID PLANT SUPERVISOR 02/06/2016 Office visit Melisa Ball SULFURIC ACID PLANT SUPERVISOR 01/05/2016 Office visit Melisa Ball SULFURIC ACID PLANT SUPERVISOR 01/02/2016 Office visit 01/02/2016 Office visit Melisa Ball SULFURIC ACID PLANT SUPERVISOR 12/30/2015 Office visit Melisa Ball SULFURIC ACID PLANT SUPERVISOR 07/25/2015 Office visit Edith Pena SULFURIC ACID PLANT SUPERVISOR 03/11/2015 Office visit Edith Pena SULFURIC ACID PLANT SUPERVISOR 02/14/2015 Office visit Edith Pena SULFURIC ACID PLANT SUPERVISOR 11/25/2014 Office visit Edith Pena SULFURIC ACID PLANT SUPERVISOR
--- OUTSIDE RECORDS SUMMARY | 2019-04-16 14:26 | XMS REPORT ---
Author Author Edith Pena Organization [facility] Address [address] [place], [place] [address] Care Team Providers Care Campus Interviews Intern Name Role Phone Edith Pena PCP Unavailable Allergies and Adverse Reactions Not available. Plan of Treatment Planned Activity Comments Planned Date Planned Time Plan/Goal STREP A ASSAY W/OPTIC 02/14/2015 12:00 AM CULTURE SCREEN ONLY 02/14/2015 12:00 AM Medications Active Name Start Date [...] 15 mg 12/15/2014 1 TAB PO DAILY Problem List Not available. Vital Signs Date Time BP-Sys(mm[Hg] BP-[place](mm[Hg]) HR(bpm) RR(rpm) Temp WT HT HC BMI BSA BMI Percentile O2 Sat(%) 02/14/2015 10:47:00 AM 138 mmHg 62 mmHg 48 bpm 18 rpm 98.3 F 187.4 lbs 139 in 6.82 kg/m2 2.89 m2 94 % 11/25/2014 9:58:00 AM 130 mmHg 90 mmHg 60 bpm 16 rpm 96.5 F 192.125 lbs 67 in 30.0907 kg/m 2.0297 m 96 % Social History Not available. History of Procedures Not available. Results Summary Not available. History Of Immunizations Not available. 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
--- OUTSIDE RECORDS SUMMARY | 2019-04-16 14:27 | XMS REPORT ---
Author Author Melisa Ball [facility] Address [address] [place], [place] [phone] Care Team Providers Care Ball Racker Name Role Phone Melisa Ball PCP Unavailable [...] morning and evening meals for 90 days Name Start Date Expiration [...] BILI 0.80 mg/dLCALCIUM 9.80 mg/dLeGFR >60 mL/min/1.73 [id number] 201.0 mg/dLCHOLESTEROL 142.0 mg/dLHDL 48.0 mg/dLLDL (CALC) [...] Number Start Date Medicare Part A Medicare [facility] [id number] N/A [place] [id number] N/A Medicare Part A Medicare Part A [id number] Sunday, 2012 [employer] [id number] Wednesday, 2012 Medicare Part B Medicare Of [place] [id number] N/A Medicare Part A Medicare - Lab/Xray [id number] Sunday, September 16, 2012 History of Encounters Visit Date Visit Type Provider 02/06/2016 Office visit Melisa Ball DRY BOX TENDER 01/05/2016 Office visit Melisa Ball DRY BOX TENDER 01/02/2016 Office visit 01/02/2016 Office visit Melisa Ball DRY BOX TENDER 12/30/2015 Office visit Melisa Ball DRY BOX TENDER 07/25/2015 Office visit Edith Pena DRY BOX TENDER 03/11/2015 Office visit Edith Pena DRY BOX TENDER 02/14/2015 Office visit Edith Pena DRY BOX TENDER 11/25/2014 Office visit Edith Pena DRY BOX TENDER
--- OUTSIDE RECORDS SUMMARY | 2019-04-16 14:27 | XMS REPORT ---
Author Author Melisa Ball Organization [facility] Address [address] [place], [place] [id number] Care Team Providers Care Umbrella Frame Maker Name Role Phone Melisa Ball PCP Unavailable Allergies and Adverse Reactions Name Reaction Notes No known drug allergy Plan of Treatment Planned Activity Comments Planned Date Planned Time Plan/Goal MAMMOGRAM BOTH BREASTS 01/02/2016 12:00 AM GLYCOSYLATED HEMOGLOBIN TEST 01/02/2016 12:00 AM Medications [...] BILI 0.80 mg/dLCALCIUM 9.80 mg/dLeGFR >60 mL/min/1.73 [id number] 201.0 mg/dLCHOLESTEROL 142.0 mg/dLHDL 48.0 mg/dLLDL (CALC) [...] Number Start Date Medicare Part A Medicare [facility] [id number] N/A [place] [id number] N/A Medicare Part A Medicare Part A [id number] Sunday, 2012 [employer] [id number] Wednesday, 2012 Medicare Part B Medicare Of [place] [id number] N/A Medicare Part A Medicare - Lab/Xray [id number] Sunday, September 16, 2012 History of Encounters Visit Date Visit Type Provider 01/02/2016 Office visit 01/02/2016 Office visit Melisa Ball CORONARY CLINICAL SPECIALIST 12/30/2015 Office visit Melisa Ball CORONARY CLINICAL SPECIALIST 07/25/2015 Office visit Edith Pena CORONARY CLINICAL SPECIALIST 03/11/2015 Office visit Edith Pena CORONARY CLINICAL SPECIALIST 02/14/2015 Office visit Edith Pena CORONARY CLINICAL SPECIALIST 11/25/2014 Office visit Edith Pena CORONARY CLINICAL SPECIALIST
--- OUTSIDE RECORDS SUMMARY | 2019-04-16 14:28 | XMS REPORT ---
Author Author Melisa Ball [facility] Address [address] [place], [place] [address] Care Team Providers Care Industrial Waste Inspector Name Role Phone Melisa Ball PCP Unavailable Melisa Ball PreferredProvider Unavailable Allergies and Adverse Reactions Name Reaction Notes No known drug allergy Plan of Treatment Planned Activity Comments Planned Date Planned Time Plan/Goal Mammography; bilateral 12/24/2016 12:00 AM (DXA), bone density study, 1 or more sites 12/24/2016 12:00 AM Medications Active Name Start Date [...] once daily (May wear up to 12hours.) Name Start Date Expiration Date SIG Comments [...] AM Pap Specimen Handling - Medicare Reviewed 11/25/2014 12:00 AM Orthopedic Consult Reviewed [...] pain without sciatica Dec 24 2016 8:58AM Payers Insurance Name Company Name Plan Name Plan Number Policy Number Policy Group Number Start Date Medicare RHC Medicare RHC [id number] N/A [place] [id number] N/A Medicare Part A Medicare Part A [id number] Sunday, 2012 [email or web address] [id number] Wednesday, 2012 Medicare Part B Medicare [facility] [id number] N/A Medicare Part A Medicare - Lab/Xray [id number] Sunday, September 16, 2012 History of Encounters Visit Date Visit Type Provider 12/24/2016 Office visit 12/24/2016 Office visit Melisa Ball GLASS MELT OPERATOR 12/11/2016 Office visit Melisa Ball GLASS MELT OPERATOR 10/08/2016 Office visit Melisa Ball GLASS MELT OPERATOR 06/19/2016 Office visit Melisa Ball GLASS MELT OPERATOR 02/06/2016 Office visit Melisa Ball GLASS MELT OPERATOR 01/05/2016 Office visit Melisa Ball GLASS MELT OPERATOR 01/02/2016 Office visit 01/02/2016 Office visit Melisa Ball GLASS MELT OPERATOR 12/30/2015 Office visit Melisa Ball GLASS MELT OPERATOR 07/25/2015 Office visit Edith Pena GLASS MELT OPERATOR 03/11/2015 Office visit Edith Pena GLASS MELT OPERATOR 02/14/2015 Office visit Edith Pena GLASS MELT OPERATOR 11/25/2014 Office visit Edith Pena GLASS MELT OPERATOR
--- OUTSIDE RECORDS SUMMARY | 2019-04-16 14:28 | XMS REPORT | Continuity of Care Document ---
Demographics Preferred Language Unknown Marital Status Unknown Baptism Affiliation Unknown Race Unknown Ethnic Group Unknown Author Organization Unknown Address Unknown Phone Unavailable Allergies Active Description Code Type Severity Reaction Onset Reported/Identified Relationship to Patient Clinical Status Yes No Known Drug Allergies [id number] N/A N/A Medications There is no data. Problems Date Dx Coded Attending Type Code Diagnosis Diagnosed By 07/07/2015 MARCIA COSTELLO APRN Ot 327.23 07/07/2015 MARCIA COSTELLO APRN Ot 786.09 07/07/2015 MARCIA COSTELLO APRN Ot 793.11 07/05/2016 ROLANDA YOST DO Ot R06.00 DYSPNEA, UNSPECIFIED 07/26/2016 ROLANDA YOST DO M Ot G47.33 OBSTRUCTIVE SLEEP APNEA (ADULT) (PEDIATR 07/26/2016 ROLANDA YOST DO Ot R06.00 DYSPNEA, UNSPECIFIED 07/26/2016 PRIYANKROLANDA SMITH DO M Ot R91.1 SOLITARY PULMONARY NODULE 08/02/2016 PRIYANKROLANDA SMITH DO M Ot G47.33 OBSTRUCTIVE SLEEP APNEA (ADULT) (PEDIATR 08/02/2016 PRIYANK BUD ISLASSON M Ot R06.00 DYSPNEA, UNSPECIFIED 08/02/2016 PRIYANKBUD SMITH DOSON M Ot R91.1 SOLITARY PULMONARY NODULE 08/29/2017 P M542 Cervicalgia 12/02/2017 P M546 Pain in thoracic spine 04/02/2019 ROLANDA YOST DO Ot G47.33 OBSTRUCTIVE SLEEP APNEA (ADULT) (PEDIATR 04/02/2019 PRIYANKBUD SMITH DOSON M Ot R06.00 DYSPNEA, UNSPECIFIED 04/02/2019 ROLANDA YOST DO M Ot R91.1 SOLITARY PULMONARY NODULE 04/07/2019 MARCIA COSTELLO APRN Ot J90 PLEURAL EFFUSION, NOT ELSEWHERE CLASSIFI 04/07/2019 MARCIA COSTELLO APRN Ot R91.8 OTHER NONSPECIFIC ABNORMAL FINDING OF DONNA Procedures There is no data. Results Test Result Range Complete blood count (CBC) with automated white blood cell (WBC) differential - 04/16/19 14:00 Blood leukocytes automated count (number/volume) 17.8 10*3/uL 4.3-11.0 Blood erythrocytes automated count (number/volume) 3.95 10*6/uL 4.35-5.85 Venous blood hemoglobin measurement (mass/volume) 11.4 g/dL 11.5-16.0 Blood hematocrit (volume fraction) 37 % 35-52 Automated erythrocyte mean corpuscular volume 93 [foz_us] 80-99 Automated erythrocyte mean corpuscular hemoglobin (mass per erythrocyte) 29 pg 25-34 Automated erythrocyte mean corpuscular hemoglobin concentration measurement (mass/volume) 31 g/dL 32-36 Automated erythrocyte distribution width ratio 14.9 % 10.0- 14.5 Automated blood platelet count (count/volume) 554 10*3/uL 130-400 Automated blood platelet mean volume measurement 8.5 [foz_us] 7.4-10.4 Automated blood neutrophils/100 leukocytes 84 % 42-75 Automated blood lymphocytes/100 leukocytes 10 % 12-44 Blood monocytes/100 leukocytes 4 % 0-12 Automated blood eosinophils/100 leukocytes 1 % 0-10 Automated blood basophils/100 leukocytes 0 % 0-10 Blood neutrophils automated count (number/volume) 15.0 10*3 1.8-7.8 Blood lymphocytes automated count (number/volume) 1.8 10*3 1.0-4.0 Blood monocytes automated count (number/volume) 0.7 10*3 0.0- 1.0 Automated eosinophil count 0.2 10*3/uL 0.0-0.3 Automated blood basophil count (count/volume) 0.0 10*3/uL 0.0-0.1 Encounters ACCT No. Visit Date/Time Discharge Status Pt. Type Provider Facility Loc./Unit Complaint [id number] 04/02/2019 15:41:44 Document Registration [id number] 03/25/2019 13:56:52 Document Registration [id number] 03/20/2019 17:19:39 Document Registration [id number] 03/20/2019 17:05:42 Document Registration [id number] 12/23/2018 08:04:23 Document Registration [id number] 12/22/2018 10:31:53 Document Registration [id number] 10/08/2018 20:26:11 Document Registration [id number] 10/08/2018 20:19:03 Document Registration [id number] 08/19/2018 14:47:33 Document Registration [id number] 06/26/2018 07:56:08 Document Registration [id number] 03/28/2018 14:59:05 Document Registration [id number] 01/13/2018 13:50:12 Document Registration [id number] 12/20/2017 08:29:56 Document Registration [id number] 10/17/2017 13:19:50 Document Registration [id number] 06/04/2017 11:07:57 Document Registration [id number] 05/27/2017 16:15:02 Document Registration [id number] 05/27/2017 16:07:45 Document Registration [id number] 04/02/2019 08:33:00 04/02/2019 23:59:59 CLS Outpatient MARCIA COSTELLO APRN Via [facility] RAD COUGH,DYSPNEA [id number] 12/15/2018 15:11:00 12/15/2018 23:59:59 CLS Preadmit ROLANDA YOST DO [facility] RT DYSPNEA [id number] 07/05/2016 13:17:00 07/05/2016 23:59:59 CLS Outpatient ROLANDA YOST DO [facility] RAD LUNG NODULE,FLORINA ON CPAP,DYSPNEA [id number] 06/15/2015 15:54:00 06/15/2015 23:59:59 CLS Outpatient MARCIA COSTELLO APRN [facility] RAD [id number] 04/16/2019 14:09:00 Document Registration [id number] 03/25/2019 14:03:31 03/25/2019 23:59:59 CLS Outpatient Melisa Ball [id number] 01/05/2019 10:32:46 01/05/2019 23:59:59 CLS Outpatient Quinn Melisa [id number] 12/22/2018 10:51:26 12/22/2018 23:59:59 CLS Outpatient Melisa Ball [id number] 11/27/2018 15:23:30 11/27/2018 23:59:59 CLS Outpatient Tim Jones [id number] 10/09/2018 11:02:28 10/09/2018 23:59:59 CLS Outpatient Melisa Ball [id number] 07/25/2018 11:23:08 07/25/2018 23:59:59 CLS Outpatient Javier Stark [id number] 06/25/2018 11:46:14 06/25/2018 23:59:59 CLS Outpatient Javier Stark [id number] 04/11/2018 12:05:08 04/11/2018 23:59:59 CLS Outpatient Sirena Mendoza [id number] 03/28/2018 14:37:21 03/28/2018 23:59:59 CLS Outpatient Sirena Mendoza [id number] 03/25/2018 08:50:06 03/25/2018 23:59:59 CLS Outpatient Walker, Melisa [id number] 01/14/2018 10:53:55 01/14/2018 23:59:59 CLS Outpatient Walker, Melisa [id number] 01/13/2018 14:25:38 01/13/2018 23:59:59 CLS Outpatient Walker, Melisa [id number] 12/20/2017 08:51:48 12/20/2017 23:59:59 CLS Outpatient Walker, Melisa [id number] 10/17/2017 10:21:11 10/17/2017 23:59:59 CLS Outpatient Walker, Melisa [id number] 09/03/2017 14:01:59 09/03/2017 23:59:59 CLS Outpatient Walker, Melisa [id number] 06/04/2017 09:32:08 06/04/2017 23:59:59 CLS Outpatient Walker, Melisa [id number] 04/09/2017 12:06:31 04/09/2017 23:59:59 CLS Outpatient Walker, Melisa [id number] 03/08/2017 09:42:44 03/08/2017 23:59:59 CLS Outpatient Walker, Melisa [id number] 12/24/2016 09:49:22 12/24/2016 23:59:59 CLS Outpatient Walker, Melisa [id number] 12/11/2016 15:27:37 12/11/2016 23:59:59 CLS Outpatient Walker, Melisa [id number] 10/08/2016 09:58:08 10/08/2016 23:59:59 CLS Outpatient Walker, Melisa [id number] 06/19/2016 16:12:52 06/19/2016 23:59:59 CLS Outpatient Walker, Melisa [id number] 06/19/2016 16:09:49 06/19/2016 23:59:59 CLS Outpatient Walker, Melisa [id number] 07/25/2015 14:49:55 07/25/2015 23:59:59 CLS Outpatient Jean, Edith Madera [id number] 04/25/2015 22:04:00 04/25/2015 23:59:59 CLS Outpatient Edith Pena [id number] 04/25/2015 21:45:58 04/25/2015 23:59:59 CLS Outpatient Edith Pena [id number] 04/15/2019 17:53:21 ACT Outpatient Maria A Rocha
--- OUTSIDE RECORDS SUMMARY | 2019-04-16 14:28 | XMS REPORT ---
Author Author Melisa Ball [facility] Address [address] [place], [place] [id number] Care Team Providers Care Lead Mechanic Name Role Phone Melisa Ball PCP Unavailable [...] Number Start Date Medicare RHC Medicare RHC [id number] N/A [facility] [place] [place] [id number] N/A Medicare Part A Medicare Part A [id number] Sunday, 2012 [place] [id number] Wednesday, 2012 Medicare Part B Medicare [facility] [id number] N/A Medicare Part A Medicare - Lab/Xray [id number] Sunday, September 16, 2012 History of Encounters Visit Date Visit Type Provider 12/24/2016 Office visit 12/24/2016 Office visit Melisa Ball UPHOLSTERY SEWER 12/11/2016 Office visit Melisa Ball UPHOLSTERY SEWER 10/08/2016 Office visit Melisa Ball UPHOLSTERY SEWER 06/19/2016 Office visit Melisa Ball UPHOLSTERY SEWER 02/06/2016 Office visit Melisa Ball UPHOLSTERY SEWER 01/05/2016 Office visit Melisa Ball UPHOLSTERY SEWER 01/02/2016 Office visit 01/02/2016 Office visit Melisa Ball UPHOLSTERY SEWER 12/30/2015 Office visit Melisa Ball UPHOLSTERY SEWER 07/25/2015 Office visit Edith Pena UPHOLSTERY SEWER 03/11/2015 Office visit Edith Pena UPHOLSTERY SEWER 02/14/2015 Office visit Edith Pena UPHOLSTERY SEWER 11/25/2014 Office visit Edith Pena UPHOLSTERY SEWER
--- NOTE | 2019-04-16 14:38 | Diagnostic Imaging Report ---
INDICATION: Left-sided chest pain. Patient has recent history of pneumonia. TIME OF EXAM: 02:25 p.m. COMPARISON: Correlation is made with prior chest from 04/02/2019. FINDINGS: Calcified nodule in right upper lobe is stable. Patient has developed consolidation in the left base, now obscuring the left hemidiaphragm. There is likely a small amount of pleural fluid in the left base as well. The right lung is clear. There is no pneumothorax. IMPRESSION: Development of left basilar consolidation and pleural fluid since examination from 04/02/2019. Dictated by: Dictated on workstation # [id number]
[2019-04-16] MEDS ORDERED: UBID100C17 PO (14:40)
[2019-04-16] MEDS ORDERED: GABA-488 PO (14:40)
[2019-04-16] MEDS ORDERED: HYDR-3812 PO (14:40)
[2019-04-16] MEDS ORDERED: HYDR25TA4 PO (14:40)
[2019-04-16] MEDS ORDERED: DICL75TA2 PO (14:44)
[2019-04-16] MEDS ORDERED: RED600TA PO (14:44)
[2019-04-16] MEDS ORDERED: CHOL10008 PO (14:44)
[2019-04-16] MEDS ORDERED: MAGN250T2 PO (14:44)
[2019-04-16] MEDS ORDERED: ATOR10TA66 PO (14:44)
[2019-04-16] MEDS ORDERED: KETOROLAC 30 MG/ML VIAL IVP ONE (14:45)
[2019-04-16] MEDS ORDERED: NS 100 ML (IVPB) BAG IV ONE (15:00)
[2019-04-16] MEDS ORDERED: IOHEXOL 350 MG/ML 100 ML (OMNIPAQUE 350) VIAL IV ONE (15:00)
[2019-04-16] MEDS: HOLD METFORMIN - RECEIVED CONTRAST 20 ML VIAL IV SCH ×2 (15:20→18:20)
--- NOTE | 2019-04-16 15:28 | NUR ---
Patient awake and alert. Spouse at bedside. Patient states the Toradol took the pain away in her chest and she currently denies any pain.
--- NOTE | 2019-04-16 15:34 | Diagnostic Imaging Report ---
PROCEDURE: CT angiography of the chest with contrast. TECHNIQUE: Multiple contiguous axial images were obtained through the chest after uneventful bolus administration of intravenous contrast. 3D reconstructed CTA MIP acquisitions were also performed. Auto Exposure Controls were utilized during the CT exam to meet ALARA standards for radiation dose reduction. INDICATION: Chest pain, pneumonia, and vomiting. FINDINGS: Evaluation of the pulmonary arterial system is without evidence of thromboembolism. No filling defects are seen within central, lobar, or segmental branches. The thoracic aorta is normal in caliber. No dissection is seen. Small amount of pericardial fluid is identified. There is a moderate left pleural effusion. No significant right pleural effusion is seen. Parenchymal evaluation demonstrates some patchy airspace infiltrate in the posterior right lower lobe. There is more significant consolidation with air bronchograms in the left lower lobe consistent with pneumonia. Upper abdomen is unremarkable. IMPRESSION: 1. No evidence of pulmonary embolism or thoracic aortic dissection. 2. Bibasilar pulmonary infiltrates, left greater, with moderate left pleural effusion. Dictated by: Dictated on workstation # [id number]
[2019-04-16] MEDS ORDERED: MEROPENEM 1,000 MG in WATER (STERILE) FOR INJECTION 20 ML IV ONE (16:00)
[2019-04-16] MEDS ORDERED: VANCOMYCIN INJECTION 1,000 MG in NS (IVPB) 250 ML IV SCH (16:00)
[2019-04-16] MEDS ORDERED: MEROPENEM 2,000 MG in NS (IVPB) 100 ML IV ONE (16:15)
--- OUTSIDE RECORDS SUMMARY | 2019-04-16 16:43 | XMS REPORT | Continuity of Care Document ---
Demographics Preferred Language Unknown Marital Status Unknown Mu-Ism Affiliation Unknown Race Unknown Ethnic Group Unknown Author Organization Unknown Address Unknown Phone Unavailable Allergies Active Description Code Type Severity Reaction Onset Reported/Identified Relationship to Patient Clinical Status Yes No Known Drug Allergies [id number] N/A N/A Medications There is no data. [...] blood basophil count (count/volume) 0.0 10*3/uL 0.0-0.1 PT panel in platelet poor plasma by coagulation assay - 04/16/19 14:00 Prothrombin time (PT) in platelet poor plasma by coagulation assay 13.0 s 12.2-14.7 INR in platelet poor plasma or blood by coagulation assay 1.0 0.8-1.4 Activated partial thromboplastin time (aPTT) in platelet poor plasma bycoagulation assay - 04/16/19 14:00 Activated partial thromboplastin time (aPTT) in platelet poor plasma bycoagulation assay 29 s 24-35 Manual absolute plasma cell count - 04/16/19 14:00 Blood monocytes/100 leukocytes 3 % NRG Manual blood segmented neutrophils/100 leukocytes 90 % NRG Blood band neutrophils/100 leukocytes 0 % NRG Manual blood lymphocytes/100 leukocytes 6 % [facility] Manual eosinophils/100 leukocytes in nose 1 % [facility] Manual blood basophils/100 leukocytes 0 % [facility] Blood erythrocyte morphology finding identification NORMAL [facility] Comprehensive metabolic panel - 04/16/19 14:00 Serum or plasma sodium measurement (moles/volume) 138 mmol/L 135-145 Serum or plasma potassium measurement (moles/volume) 4.2 mmol/L 3.6-5.0 Serum or plasma chloride measurement (moles/volume) 98 mmol/L 98-107 Carbon dioxide 27 mmol/L 21-32 Serum or plasma anion gap determination (moles/volume) 13 mmol/L 5-14 Serum or plasma urea nitrogen measurement (mass/volume) 18 mg/dL 7-18 Serum or plasma creatinine measurement (mass/volume) 1.08 mg/dL 0.60-1.30 Serum or plasma urea nitrogen/creatinine mass ratio 17 [facility] Serum or plasma creatinine measurement with calculation of estimated glomerular filtration rate 50 NR Serum or plasma glucose measurement (mass/volume) 116 mg/dL 70-105 Serum or plasma calcium measurement (mass/volume) 9.8 mg/dL 8.5-10.1 Serum or plasma total bilirubin measurement (mass/volume) 0.6 mg/dL 0.1-1.0 Serum or plasma alkaline phosphatase measurement (enzymatic activity/volume) 36 U/L 40-136 Serum or plasma aspartate aminotransferase measurement (enzymatic activity/volume) 17 U/L 5-34 Serum or plasma alanine aminotransferase measurement (enzymatic activity/volume) 52 U/L 0-55 Serum or plasma protein measurement (mass/volume) 7.4 g/dL 6.4-8.2 Serum or plasma albumin measurement (mass/volume) 4.1 g/dL 3.2-4.5 CALCIUM CORRECTED 9.7 mg/dL 8.5-10.1 Magnesium - 04/16/19 14:00 Magnesium 2.1 mg/dL 1.8-2.4 Serum or plasma troponin i.cardiac measurement (mass/volume) - 04/16/19 14:00 Serum or plasma troponin i.cardiac measurement (mass/volume) < ng/mL <0.028 Myoglobin, serum - 04/16/19 14:00 Myoglobin, serum 38.6 ng/mL 10.0-92.0 Serum or plasma amylase measurement (enzymatic activity/volume) - 04/16/19 14:00 Serum or plasma amylase measurement (enzymatic activity/volume) 55 U/L 25-125 Lipase - 04/16/19 14:00 Lipase 44 U/L 8-78 Serum or plasma lithium measurement (moles/volume) - 04/16/19 14:00 BNP PT 90.7 pg/mL <100.0 Blood lactic acid measurement (moles/volume) - 04/16/19 15:46 Blood lactic acid measurement (moles/volume) 0.88 mmol/L 0.50- 2.00 Encounters ACCT No. Visit Date/Time Discharge Status Pt. Type Provider Facility Loc./Unit Complaint [id number] 04/02/2019 15:41:44 Document Registration [id number] 03/25/2019 13:56:52 Document Registration [id number] 03/20/2019 17:19:39 Document Registration [id number] 03/20/2019 17:05:42 Document Registration [id number] 12/23/2018 08:04:23 Document Registration [id number] 12/22/2018 10:31:53 Document Registration [id number] 10/08/2018 20:26:11 Document Registration [id number] 10/08/2018 20:19:03 Document Registration [id number] 08/19/2018 14:47:33 Document Registration [id number] 06/26/2018 07:56:08 Document Registration [id number] 03/28/2018 14:59:05 Document Registration [id number] 01/13/2018 13:50:12 Document Registration [id number] 12/20/2017 08:29:56 Document Registration [id number] 10/17/2017 13:19:50 Document Registration [id number] 06/04/2017 11:07:57 Document Registration [id number] 05/27/2017 16:15:02 Document Registration [id number] 05/27/2017 16:07:45 Document Registration [id number] 04/02/2019 08:33:00 04/02/2019 23:59:59 CLS Outpatient MARCIA COSTELLO APRN [facility] RAD COUGH,DYSPNEA [id number] 12/15/2018 15:11:00 12/15/2018 23:59:59 CLS Preadmit ROLANDA YOST DO [facility] RT DYSPNEA [id number] 07/05/2016 13:17:00 07/05/2016 23:59:59 CLS Outpatient ROLANDA YOST DO [facility] RAD LUNG NODULE,FLORINA ON CPAP,DYSPNEA [id number] 06/15/2015 15:54:00 06/15/2015 23:59:59 CLS Outpatient MARCIA COSTELLO APRN [facility] RAD [id number] 04/16/2019 14:09:00 Document Registration [id number] 03/25/2019 14:03:31 03/25/2019 23:59:59 CLS Outpatient Walker, Melisa [id number] 01/05/2019 10:32:46 01/05/2019 23:59:59 CLS Outpatient Walker, Melisa [id number] 12/22/2018 10:51:26 12/22/2018 23:59:59 CLS Outpatient Walker, Melisa [id number] 11/27/2018 15:23:30 11/27/2018 23:59:59 CLS Outpatient Tim Jones [id number] 10/09/2018 11:02:28 10/09/2018 23:59:59 CLS Outpatient Walker, Melisa [id number] 07/25/2018 11:23:08 07/25/2018 23:59:59 CLS Outpatient Javier Stark [id number] 06/25/2018 11:46:14 06/25/2018 23:59:59 CLS Outpatient Javier Stark [id number] 04/11/2018 12:05:08 04/11/2018 23:59:59 CLS Outpatient [place] vill[place] Cynthia [id number] 03/28/2018 14:37:21 03/28/2018 23:59:59 CLS Outpatient Sirena Mendozan [id number] 03/25/2018 08:50:06 03/25/2018 23:59:59 CLS Outpatient Walker, Melisa [id number] 01/14/2018 10:53:55 01/14/2018 23:59:59 CLS Outpatient Walker, Melisa [id number] 01/13/2018 14:25:38 01/13/2018 23:59:59 CLS Outpatient Walker, Melisa [id number] 12/20/2017 08:51:48 12/20/2017 23:59:59 CLS Outpatient Walker, Melisa [id number] 10/17/2017 10:21:11 10/17/2017 23:59:59 CLS Outpatient Walker, Melisa [id number] 09/03/2017 14:01:59 09/03/2017 23:59:59 CLS Outpatient Walker, Melisa [id number] 06/04/2017 09:32:08 06/04/2017 23:59:59 CLS Outpatient Walker, Melisa [id number] 04/09/2017 12:06:31 04/09/2017 23:59:59 CLS Outpatient Walker, Melisa [id number] 03/08/2017 09:42:44 03/08/2017 23:59:59 CLS Outpatient Walker, Melisa [id number] 12/24/2016 09:49:22 12/24/2016 23:59:59 CLS Outpatient Walker, Melisa [id number] 12/11/2016 15:27:37 12/11/2016 23:59:59 CLS Outpatient Walker, Melisa [id number] 10/08/2016 09:58:08 10/08/2016 23:59:59 CLS Outpatient Walker, Melisa [id number] 06/19/2016 16:12:52 06/19/2016 23:59:59 CLS Outpatient Walker, Melisa [id number] 06/19/2016 16:09:49 06/19/2016 23:59:59 CLS Outpatient Walker, Melisa [id number] 07/25/2015 14:49:55 07/25/2015 23:59:59 CLS Outpatient Edith Pena [id number] 04/25/2015 22:04:00 04/25/2015 23:59:59 CLS Outpatient Edith Pena [id number] 04/25/2015 21:45:58 04/25/2015 23:59:59 CLS Outpatient Edith Pena [id number] 04/15/2019 17:53:21 ACT Outpatient Maria A Rocha
[2019-04-16] MEDS ORDERED: VANCOMYCIN 500 MG/NS 100 ML IV NR ×2 (17:30)
[2019-04-16] MEDS ORDERED: CATHETER FLUSH 10 ML SYR IV PRN (17:45)
[2019-04-16] MEDS ORDERED: ATORVASTATIN 40 MG (LIPITOR) TABLET PO SCH (21:00)
[2019-04-16] MEDS ORDERED: hydrALAZINE (APRESOLINE) 25 MG TAB PO SCH (21:00)
[2019-04-16] MEDS ORDERED: RT-ALBUTEROL SULF 2.5 MG/3 ML PRE-MIX VIAL INH PRN (21:30)
[2019-04-16] MEDS: CEFEPIME 2,000 MG/SWFI 20 ML IV PUSH IV SCH ×2 (21:55)
[2019-04-16] MEDS: HYDROCHLOROTHIAZIDE 25 MG (HCTZ) TAB PO SCH (21:56)
[2019-04-16] MEDS: GABAPENTIN 300 MG (NEURONTIN) CAP PO SCH (21:56)
[2019-04-16] MEDS: CATHETER FLUSH 10 ML SYR IV SCH (21:57)
[2019-04-17] VITALS (14 sets, daily range): BP systolic 83–138; BP diastolic 48–74
[2019-04-17] MEDS ORDERED: GABAPENTIN 300 MG (NEURONTIN) CAP PO ONE
[2019-04-17] MEDS ORDERED: LORazepam INJ 2 MG/ML (ATIVAN) VIAL ONE (02:58)
[2019-04-17] MEDS ORDERED: LORazepam INJ 2 MG/ML (ATIVAN) VIAL IVP ONE (03:00)
[2019-04-17 03:33] LABS: BASOPHILS % (AUTO) 0 % (0-10); EOSINOPHILS # (AUTO) 0.3 10^3/uL (0.0-0.3); EOSINOPHILS % (AUTO) 3 % (0-10); HEMATOCRIT 35 % (35-52); LYMPHOCYTES # (AUTO) 2.1 X 10^3 (1.0-4.0); LYMPHOCYTES % (AUTO) 18 % (12-44); MEAN CORPUSCULAR HEMOGLOBIN 29 PG (25-34); MEAN CORPUSCULAR HGB CONC 31 G/DL (32-36); MEAN CORPUSCULAR VOLUME 93 FL (80-99); MONOCYTES # (AUTO) 0.7 X 10^3 (0.0-1.0); MONOCYTES % (AUTO) 6 % (0-12); NEUTROPHILS # (AUTO) 8.3 X 10^3 (1.8-7.8); NEUTROPHILS % (AUTO) 73 % (42-75); PLATELET COUNT 459 10^3/uL (130-400); RED CELL DISTRIBUTION WIDTH 14.9 % (10.0-14.5); WHITE BLOOD COUNT 11.4 10^3/uL (4.3-11.0)
[2019-04-17 04:02] LABS: CALCIUM 9.2 MG/DL (8.5-10.1); CREATININE SERUM 1.13 MG/DL (0.60-1.30); MAGNESIUM 2.3 MG/DL (1.8-2.4); PHOSPHORUS 3.8 MG/DL (2.3-4.7); POTASSIUM 4.2 MMOL/L (3.6-5.0)
[2019-04-17] MEDS: CATHETER FLUSH 10 ML SYR IV SCH ×3 (06:36→20:32)
[2019-04-17] MEDS ORDERED: KETOROLAC 30 MG/ML VIAL ONE (07:04)
[2019-04-17] MEDS: KETOROLAC 30 MG/ML VIAL IVP PRN ×3 (07:06→19:40)
--- NOTE | 2019-04-17 07:15 | Pulmonary Procedures ---
Pulmonary Procedures Date of Procedure Date of Service: Apr 17, 2019 Procedure: US guided complex thoracentesis Preop DX: Left Pleural Effusion post op DX: left pleural effusion. 800cc serious sanguinous fluid Complications: None After informed consent obtained US was used to localize pleural fluid. Pt has [bilateral L>R] pleural effusions. Skin was anesthetized at approximately the 10th ICS posterior axillary line. Thoracentesis needle was advanced through the 10th ICS posterior axillary line. Needle was removed and catheter left in place.800cc of serious sanguinous fluid obtained using vacuum bottles. Catheter was then removed. Pt tolerated procedure well. No complications noted. ROLANDA YOST DO Apr 17, 2019 07:15
--- NOTE | 2019-04-17 07:29 | Diagnostic Imaging Report ---
INDICATION: Status post thoracentesis. COMPARISON: Imaging from same day. TECHNIQUE: Single frontal radiograph of the chest dated 04/17/2019. FINDINGS: The cardiac silhouette is stable. No significant pulmonary vascular congestion. Calcified granuloma within the right midlung is again identified. Small left basilar pleural-parenchymal opacity is present, improved since the prior examination. No pneumothorax. No acute osseous abnormality. IMPRESSION: Improved small left basilar pleural-parenchymal opacity status post thoracentesis without pneumothorax. Additional stable findings as above. Dictated by: Dictated on workstation # [id number]
--- NOTE | 2019-04-17 07:36 | NUR ---
Timeline note: 0643 - bedside thoracentesis performed by Dr. Zapien. This RN and JUAN C Bryson at bedside to assist. Patient tolerated procedure well, oxygen saturation stayed at 95-100% on 5L during procedure. 0700 - Procedure finished, patient states slight pain in upper left chest. 600cc drained and bandaid placed on puncture site, no drainage noted. Patient rates pain at a 9 and is rocking from the pain. 0706 - this RN gives 30cc toradol IV 0736 - Patient states pain is now a dull ache and tolerable. Sitting comfortably. Will continue to monitor.
--- NOTE | 2019-04-17 07:39 | Diagnostic Imaging Report ---
INDICATION: Dyspnea. EXAMINATION: Frontal chest obtained at 319 hours am, and compared to yesterday. There is cardiomegaly. There is no change in left basilar infiltrate and left pleural fluid. There is some minimal infiltrate in the right base. There is no pneumothorax. IMPRESSION: Cardiomegaly. No change in left basilar infiltrate with left pleural fluid. There is some minimal infiltrate in the right base as well. Overall findings are unchanged from yesterday. Dictated by: Dictated on workstation # [id number]
--- NOTE | 2019-04-17 07:53 | Pulmonary Consultation ---
History of Present Illness History of Present Illness Date of Consultation 04/17/19 07:25 Time Seen by Provider: 07:26 Date of Admission History of Present Illness 73yo with hx of CAD (cardiac cath on 03/22/2019 after going to ED secondary to CP) who was sent to ED from my office yesterday secondary to worsening left sided dull pleuritic CP 5/10, N/V, and SOB. Onset was acute at 1300 7/. Pt was actually vomiting as I walked into patients room. She was placed on Levaquin x7 days as an out pt after her cardiac cath. She was in the hospital for 3 days during the time of cardiac cath too. PT was placed on Hydrocodone secondary to pleuritic CP and believes this is causing nausea. I am consulted for pulmonary/CC management. Allergies and Home Medications Allergies Coded Allergies: No Known Drug Allergies (Unverified , 04/16/19) Home Medications Albuterol Sulfate 18 Gm Hfa.aer.ad, 1-2 PUFF INH Q6H PRN for SHORTNESS OF BREATH, (Reported) Atorvastatin Calcium 40 Mg Tablet, 40 MG PO HS, (Reported) Cholecalciferol (Vitamin D3) 1,000 Unit Capsule, 1,000 UNIT PO BID, (Reported) Diclofenac Sodium 75 Mg Tablet.dr, 75 MG PO BID, (Reported) Gabapentin 300 Mg Capsule, 300 MG PO TID, (Reported) Hydrochlorothiazide 25 Mg Tablet, 25 MG PO HS, (Reported) Hydrocodone/Acetaminophen 1 Each Tablet, 1 TAB PO Q6H PRN for PAIN-MODERATE, (Reported) Magnesium Oxide 400 Mg Tablet, 400 MG PO QID, (Reported) Pantoprazole Sodium 40 Mg Tablet.dr, 40 MG PO DAILY PRN for HEARTBURN, (Reported) [Berberine] , 1 CAP PO BID, (Reported) Past Ygbkbdt-Goyeng-Hoerrm Hx Patient Social History Alcohol Use: Denies Use Recreational Drug Use: No Smoking Status: Never a Smoker Type Used: Cigarettes 2nd Hand Smoke Exposure: No Recent Foreign Travel: No Contact w/Someone Who Travel: No Recent Infectious Disease Expo: No Recent Hopitalizations: Yes ([facility] for heart cath) Physical Abuse: No Sexual Abuse: No Mistreated: No Fear: No Immunizations Up To Date PED Vaccines UTD: Yes Seasonal Allergies Seasonal Allergies: No Past Medical History Surgeries: Yes (CARDIAC CATH 03/2019 AT [place], NORMAL PER PT ) Gallbladder, Hysterectomy, Tonsillectomy Respiratory: Yes Pneumonia, Sleep Apnea Cardiac: Yes High Cholesterol, Hypertension 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 Genitourinary: No Gastrointestinal: No Musculoskeletal: Yes Arthritis Endocrine: No HEENT: No Cancer: No Psychosocial: Yes Anxiety Integumentary: No Blood Disorders: No Family Medical History Cardiovascular disease G8 SISTER, Onset:60 years & older Cataracts G8 SISTER, Onset:60 years & older G8 SISTER, Onset:60 years & older Completed stroke 19 MOTHER, Onset:60 years & older FH: Crohn's disease 19 MOTHER, Onset:50's - 60 FH: bladder cancer 19 FATHER, Onset:60 years & older FH: leukemia 19 FATHER, Onset:60 years & older FH: prostate cancer 19 FATHER, Onset:60 years & older Review of Systems Time Seen by Provider: 08:21 Constitutional: Fever, Chills, Sweats, Weakness, Malaise, Other Eyes: No: Pain, Vision change, Conjunctivae inflammation, Eyelid inflammation, Other, Redness ENT: No: Ear pain, Ear discharge, Nose pain, Nose discharge, Nose congestion, Mouth pain, Mouth swelling, Throat pain, Throat swelling, Other Respiratory: Cough, Shortness of breath, SOB with excertion, Pleuritic Pain, Sputum Cardiovascular: Chest Pain, Paroxysmal Noc. Dyspnea, Lt Headedness; No: Palpitations, Orthopnea Gastrointestinal: Nausea, Vomiting; No: Abdominal Pain, Diarrhea, Constipation, Melena Sepsis Event Evaluation Height, Weight, BMI Height: 5'7.00" Weight: 163lbs. 1.0oz. 73.025052fz; 25.7 BMI Method:Stated Exam Exam Vital Signs Date Time Temp Pulse Resp B/P (MAP) Pulse Ox O2 Delivery O2 Flow Rate FiO2 04/17/19 06:00 80 16 118/66 (83) 91 Nasal Cannula 1.00 04/17/19 05:00 80 18 119/56 (77) 93 Nasal Cannula 1.00 04/17/19 04:00 80 18 120/59 (79) 91 Nasal Cannula 1.00 04/17/19 04:00 Room Air 04/17/19 03:21 Nasal Cannula 1.00 04/17/19 03:00 81 24 134/60 (84) 94 Nasal Cannula 2.00 04/17/19 02:00 67 14 83/48 (60) 96 Nasal Cannula 2.00 04/17/19 01:00 68 04/17/19 01:00 66 14 101/57 (72) 96 Nasal Cannula 2.00 04/17/19 00:00 64 21 116/58 (77) 98 Nasal Cannula 2.00 04/17/19 00:00 Room Air 04/16/19 23:00 67 15 104/49 (67) 96 Room Air 04/16/19 22:00 71 14 118/75 (89) 94 Room Air 04/16/19 21:00 69 20 118/70 (86) 94 Room Air 04/16/19 20:38 69 93 04/16/19 20:00 74 22 117/63 (81) 92 Room Air 04/16/19 20:00 Room Air 04/16/19 19:50 98.1 04/16/19 19:00 68 04/16/19 19:00 68 22 138/74 (95) 94 Room Air 04/16/19 18:00 64 12 104/54 (71) 89 Room Air 04/16/19 17:19 60 04/16/19 17:15 98 Nasal Cannula 2.00 04/16/19 17:15 66 28 133/71 (91) 95 Room Air 04/16/19 16:44 97.8 57 16 103/53 (70) 99 Nasal Cannula 2.00 04/16/19 14:20 86 Nasal Cannula 2.00 04/16/19 13:50 96.6 68 20 147/80 (102) 97 Room Air 04/16/19 13:50 Nasal Cannula 2.0 I & O 04/17/19 07:00 Intake Total 850 ml Output Total 2100 ml Balance -1250 ml Height & Weight Height: 5'7.00" Weight: 163lbs. 1.0oz. 73.900506xp; 25.7 BMI Method:Stated General Appearance: Anxious, Mild Distress HEENT: Normal ENT Inspection, Pharynx Normal Neck: Full Range of Motion, Non Tender Respiratory: Chest Non Tender, No Accessory Muscle Use, No Respiratory Distress, Decreased Breath Sounds Cardiovascular: Regular Rate, Rhythm, No Edema Capillary Refill: Less Than 3 Seconds Gastrointestinal: normal bowel sounds, non tender, soft, no organomegaly Extremity: Normal Capillary Refill, No Pedal Edema Neurologic/Psychiatric: Alert, Oriented x3 Skin: Normal Color, Warm/Dry Lymphatic: No Adenopathy Results Lab Laboratory Tests 04/16/19 14:00 04/17/19 03:10 Assessment/Plan Assessment/Plan bibasilar PNA with parapneumonic left pleural effusion r/o Emphyema - failed out pt treatment -s/p L thoracentesis this Am 800cc of serious sanguinous fluid -SVNs Pleurisy -Will add Toradol Small pericardial effusion per CT chest -Check echocardiogram Atelectasis -Start IS Hypoxia -Oxygen via NC Anemia -Monitor N/V - no abdominal pain -- probably secondary to home Lortab -Amylase lipase - are normal FLORINA -Treated with CPAP therapy Hx of lung lung nodule RLL stable since 2013 HX RUL calcified granuloma ROLANDA YOST DO Apr 17, 2019 07:52
[2019-04-17] MEDS: GABAPENTIN 300 MG (NEURONTIN) CAP PO SCH ×3 (07:59→20:30)
[2019-04-17] MEDS: ACETAMINOPHEN 500 MG TAB (TYLENOL) PO PRN (08:46)
--- NOTE | 2019-04-17 09:07 | NUR ---
Initial visit: The pt is Yarsanism, and her abby and prayer life continue to be a source of strength and comfort. She said she is unable to take communion, and does not request Parish contacts at this time. She has connection wit the [facility] in [place], [place]. While she is not currently attending a [place], her grandson is an altar boy and she expressed how proud of him she is. She thanked me for visiting her, and I welcomed her to request local operator support at anytime.
[2019-04-17 09:34] LABS: BODY FLUID APPEARENCE MOD CLDY; BODY FLUID COLOR YELLOW; BODY FLUID SOURCE PLEURAL
[2019-04-17 09:35] LABS: BODY FLUID RBC COUNT 3050 /uL; BODY FLUID WBC TOTAL COUNT 3750 /uL
[2019-04-17 09:38] LABS: GLUCOSE,BODY FLUID 110 MG/DL
[2019-04-17 09:39] LABS: LDH,BODY FLUID 140 U/L
[2019-04-17] MEDS ORDERED: HYDR-3812 PO (09:43)
[2019-04-17] MEDS ORDERED: CHOL10007 PO (09:43)
[2019-04-17] MEDS ORDERED: PANT40TA3 PO (09:43)
[2019-04-17] MEDS ORDERED: MAGN400T39 PO (09:43)
[2019-04-17] MEDS ORDERED: ALBU18HF2 INH (09:43)
[2019-04-17] MEDS ORDERED: BERBERINE PO (09:43)
[2019-04-17] MEDS ORDERED: ATOR40TA70 PO (09:43)
--- NOTE | 2019-04-17 09:45 | NUR ---
SPOKE WITH THE PATIENT ABOUT HER MEDICATIONS. WE WENT OVER THE EXT MED HX AND SHE VERIFIED HOW SHE TAKES THEM. SHE TAKES THE FOLLOWING OTC: BERBERINE BID MAGNESIUM QID VITAMIN D3 BID
[2019-04-17] MEDS: RT-ALBUTEROL/IPRATROPIUM 3 ML (DUONEB) VIAL INH SCH ×2 (09:47→22:08)
--- NOTE | 2019-04-17 09:58 | History & Physical-Hospitalist ---
ROMINA TRINIDAD,MED STUDENT 04/17/19 0958: History of Present Illness HPI/Chief Complaint Patient is a 73y/o female who presented left sided chest pain and SOB that started March 20. Chest pain has gets worse with exertion that radiates to left shoulder, pain improves with rest. Pt has been to [facility] in [place] from March 20- and got a heart cath done and reported as normal. Saw her PA on March 25 and was prescribed Levaquin 500mg for 7days, saw Dr Zapien at [facility] on April 01 and was given prednisone. Saw Dr. Zapien on April 16 and started vomiting and was sent to ER at [facility]. CT of chest showed a loculated pleural effusion on the left Source: patient Exam Limitations: no limitations Date Seen 04/17/19 Time Seen by a Provider: 13:35 Attending Physician Zayda Wahl MD PCP No,Local Physician Referring Physician Date of Admission Apr 16, 2019 at 15:55 Home Medications & Allergies Home Medications Reviewed patient Home Medication Reconciliation performed by pharmacy medication reconciliations wildlife technician and/or nursing. Patients Allergies have been reviewed. Allergies Allergies Coded Allergies No Known Drug Allergies (Unverified04/16/19) Past Aqjrbwi-Ypcowz-Khztwr Hx Past Med/Social Hx: Reviewed Nursing Past Med/Soc Hx Patient Social History Marrital Status: , Number of Children: 1 Number of living children: 1 Employed/Student: retired Alcohol Use: Regular Use Number of Drinks Today: 1 Alcohol Beverage of Choice: Wine Recreational Drug Use: No Smoking Status: Former Smoker Cigaretts per day: 20 Former Smoker, Quit: Apr 17, 1989 Type Used: Cigarettes 2nd Hand Smoke Exposure: Yes Physical Abuse Screen: No Sexual Abuse: No Recent Foreign Travel: No Contact w/other who traveled: No Recent Hopitalizations: Yes ([facility] for heart cath) Recent Infectious Disease Expo: Yes Social History Retired, exercises daily time as reduced to 15min daily since symptoms started, tries to eat healthy (veggies, protein, reduced fats and sodium) Immunizations Up To Date Tetanus Booster (TDap): Unknown Pediatric: No Seasonal Allergies Seasonal Allergies: No Past Medical History Surgeries: Gallbladder, Hysterectomy, Tonsillectomy Respiratory: Pneumonia, Sleep Apnea Currently Using CPAP: Yes Cardiac: High Cholesterol, Hypertension : No Reproductive: No Female Reproductive Disorders: Endometriosis Hysterectomy, Menopausal Musculoskeletal: Arthritis R hip pain Are Your Blood Sugars Over 250: No Psychosocial: Anxiety History of Blood Disorders: No Family History Cardiovascular disease G8 SISTER, Onset:60 years & older Cataracts G8 SISTER, Onset:60 years & older G8 SISTER, Onset:60 years & older Completed stroke 19 MOTHER, Onset:60 years & older FH: Crohn's disease 19 MOTHER, Onset:50's - 60 FH: bladder cancer 19 FATHER, Onset:60 years & older FH: leukemia 19 FATHER, Onset:60 years & older FH: prostate cancer 19 FATHER, Onset:60 years & older Heart Disease, Cancer, COPD, Hypertension Review of Systems Constitutional: No chills, No diaphoresis, No fever, No malaise, No weakness, No weight gain; weight loss Respiratory: dyspnea on exertion; No hemoptysis; short of breath Cardiovascular: chest pain Gastrointestinal: no symptoms reported : No Control/STD Prophylaxis: None Musculoskeletal: joint pain, neck pain Physical Exam Physical Exam Vital Signs Vital Signs - First Documented 04/16/19 13:50 Temp 96.6 Pulse 68 Resp 20 B/P (MAP) 147/80 (102) Pulse Ox 97 O2 Delivery Nasal Cannula O2 Flow Rate 2.0 Capillary Refill : Less Than 3 Seconds Height, Weight, BMI Height: 5'7.00" Weight: 163lbs. 1.0oz. 73.510642ec; 25.7 BMI Method:Stated General Appearance: No Apparent Distress, WD/WN Neck: Non Tender, Supple; No Lymphadenopathy (L), No Lymphadenopathy (R); Tender Lateral; No Tender Midline Respiratory: No Chest Non Tender, No Lungs Clear, No Normal Breath Sounds; No Accessory Muscle Use, No Respiratory Distress, Pleural Rub, Rhonci Cardiovascular: Regular Rate, Rhythm, No Edema, No Gallop, No JVD, No Murmur, Normal Peripheral Pulses Gastrointestinal: Normal Bowel Sounds, No Pulsatile Mass, Non Tender, Soft Extremity: Non Tender, No Calf Tenderness, No Pedal Edema Neurologic/Psychiatric: Alert, Normal Mood/Affect Skin: Normal Color, Warm/Dry Results Results/Procedures Labs Laboratory Tests 04/16/19 14:00 04/17/19 03:10 Patient resulted labs reviewed. Assessment/Plan Admission Diagnosis Pneumonia Admission Status: Observation Assessment and Plan Pneumonia * continue Abx (vanco and cefepime) * Breathing Tx Pleural effusion * culture * pulm consult HTN * continue HCTZ Hypercholesterolemia * continue atorvastatin NIDMII * monitor blood sugar * Treat is lvls rise above 180 RLS * gabapentin 300mg TID Clinical Quality Measures AMI/AHF: ASA po Prior to arrival: No DVT/VTE Risk/Contraindication: Risk Factor Score Per Nursin RFS Level Per Nursing on Admit: 2=Moderate EDZAYDA Awad MD 04/17/19 1253: Past Hrrrlnb-Kpivnw-Xbljca Hx Family History Cardiovascular disease G8 SISTER, Onset:60 years & older Cataracts G8 SISTER, Onset:60 years & older G8 SISTER, Onset:60 years & older Completed stroke 19 MOTHER, Onset:60 years & older FH: Crohn's disease 19 MOTHER, Onset:50's - 60 FH: bladder cancer 19 FATHER, Onset:60 years & older FH: leukemia 19 FATHER, Onset:60 years & older FH: prostate cancer 19 FATHER, Onset:60 years & older Physical Exam Physical Exam General Appearance: No Apparent Distress HEENT: Moist Mucous Membranes; No Scleral Icterus (L), No Scleral Icterus (R) Respiratory: Chest Non Tender, Lungs Clear, Normal Breath Sounds; No No Accessory Muscle Use, No No Respiratory Distress, No Pleural Rub Back: No CVA Tenderness, Other Neurologic/Psychiatric: Oriented x3; No Aphasia, No Facial Droop Supervisory-Addendum Brief Verification & Attestation Time: Verification & Attestat.: 12:41 Participated in pt care: history, MDM, physical Personally performed: exam, history, MDM, supervision of care Care discussed with: Medical Student Procedures: n/a Results interpretation: Verified all documentation HPI: Pt admitted for pleural effusion after failing outpatient management with Levaquin. She was admitted to [place] ~1 month ago due to chest pain and had a clean cardiac cath. She was found to have pneumonia then and was treated while inpatient. She followed up with her PCP and was prescribed Levaquin which she has completed. She was also prescribed prednisone. She completed these as an outpatient but continued to worsen and had an appointment with Dr Zapien (punch press operator) here yesterday. When she presented to his office she was sick and vomiting in his office so he sent her to the ER for further evaluation. She had a CT chest which revealed a left sided pleural effusion for which she underwent thoracentesis this morning with 800mL removed. She states she is now feeling well and breathing better. She has some back pain since the procedure. A/P Pneumonia Pleural Effusion NIDDMII Plan Pulm consult, status post thoracentesis Continue broad-spectrum antibiotics Does not meet sepsis criteria Await cultures from thoracentesis Monitor blood sugars, fasting blood sugar 88 this morning ROMINA TRINIDAD,MED STUDENT Apr 17, 2019 09:58 ZAYDA WAHL MD Apr 17, 2019 12:53
[2019-04-17 10:44] LABS: LYMPHOCYTES,BODY FLUID 22 %
[2019-04-17 10:46] LABS: BODY FLUID PH 7.3
[2019-04-17] MEDS ORDERED: NON-FORMULARY MEDICATION 1 EA EA (Hydrocodone/Acetaminophen (Hydrocodone-Acetamin 5-325 mg PO PRN (12:45)
[2019-04-17] MEDS ORDERED: PANTOPRAZOLE 40 MG (PROTONIX) TAB PO PRN (12:45)
[2019-04-17] MEDS ORDERED: NON-FORMULARY MEDICATION 1 EA EA (Magnesium Oxide (Magnesium) 400 MG) PO SCH (13:00)
[2019-04-17] MEDS ORDERED: HYDROcodone/APAP 5 MG/325 MG (LORTAB) TAB PO PRN (13:00)
[2019-04-17] MEDS ORDERED: GABAPENTIN 300 MG (NEURONTIN) CAP PO SCH (13:00)
[2019-04-17] MEDS: MAGNESIUM OXIDE (MAG-OX)400 MG TAB PO SCH ×3 (13:03→20:30)
--- NOTE | 2019-04-17 13:05 | NUR ---
REPORT RECEIVED FROM VOCATIONAL REHABILITATION SPECIALIST ALYCIA. PT TO ROOM 406 VIA WHEELCHAIR. PT DENIES ANY NEEDS AT THIS TIME. WILL CONTINUE TO MONITOR.
--- NOTE | 2019-04-17 13:06 | NUR ---
Transferred to [facility], in fair condition. JUAN C Gonzalez in room, assumed care of pt at this time.
[2019-04-17] MEDS ORDERED: CEFEPIME 2 GM (MAXIPIME) VIAL ONE (16:39)
[2019-04-17] MEDS ORDERED: WATER (STERILE) FOR INJECTION 20 ML ONE (16:39)
[2019-04-17] MEDS ORDERED: VANCOMYCIN 1250 MG/NS 250 ML IVPB IV SCH ×2 (17:00)
[2019-04-17] MEDS: LACTOBACILLUS ACIDOPHILUS (PROBIOTIC) CAPSULE PO SCH (17:13)
[2019-04-17] MEDS: CEFEPIME 2,000 MG/SWFI 20 ML IV PUSH IV SCH ×2 (18:57)
[2019-04-17] MEDS ORDERED: SENNA W/DOCUSATE (SENOKOT S) TABLET ONE (20:20)
--- NOTE | 2019-04-17 20:21 | NUR ---
THIS RN NOTIFIED DR WARD OF PT REQUEST FOR STOOL SOFTENER. PT STATES SHE HAS DRANK PRUNE JUICE AND EATEN PRUNES EARLIER TODAY WITH NO RESULTS. NEW ORDER OBTAINED.
[2019-04-17] MEDS: SENNA W/DOCUSATE (SENOKOT S) TABLET PO SCH (20:29)
[2019-04-17] MEDS: HYDROCHLOROTHIAZIDE 25 MG (HCTZ) TAB PO SCH (20:30)
[2019-04-17] MEDS: ATORVASTATIN 40 MG (LIPITOR) TABLET PO SCH (20:31)
[2019-04-17] MEDS ORDERED: NON-FORMULARY MEDICATION 1 EA EA (Hydrochlorothiazide 25 MG) PO SCH (21:00)
[2019-04-18] VITALS (7 sets, daily range): BP systolic 104–145; BP diastolic 53–75
[2019-04-18] MEDS: ACETAMINOPHEN 500 MG TAB (TYLENOL) PO PRN (00:55)
[2019-04-18] MEDS: KETOROLAC 30 MG/ML VIAL IVP PRN ×2 (03:55→14:13)
[2019-04-18] MEDS: LACTOBACILLUS ACIDOPHILUS (PROBIOTIC) CAPSULE PO SCH ×3 (06:04→16:17)
[2019-04-18] MEDS: CATHETER FLUSH 10 ML SYR IV SCH ×3 (06:04→22:03)
--- NOTE | 2019-04-18 07:25 | NUR ---
0400- PT REQUESTED MEDICATION GABAPENTIN TIME BE CHANGED TO 1300, 1700, AND 2200 AND SUPPOSITORY FOR BOWELS TO MOVE. 0715- THIS RN CALLED DR. WARD WITH PT'S REQUESTS. NEW ORDERS RECEIVED AND SHE AGREED WITH GABAPENTIN TIME CHANGES.
--- NOTE | 2019-04-18 07:51 | Progress Note - Hospitalist ---
ROMINA TRINIDAD,MED STUDENT 04/18/19 7:51am: Subjective HPI/CC On Admission Date Seen by Provider: Apr 18, 2019 Time Seen by Provider: 09:50 Patient is a 73y/o female who presented left sided chest pain and SOB that started March 20. Chest pain has gets worse with exertion that radiates to left shoulder, pain improves with rest. Pt has been to [facility] in [place] from March 20- and got a heart cath done and reported as normal. Saw her PA on March 25 and was prescribed Levaquin 500mg for 7days, saw Dr Zapien at [facility] on April 01 and was given prednisone. Saw Dr. Zapien on April 16 and started vomiting and was sent to ER at [facility]. CT of chest showed a loculated pleural effusion on the left Subjective/Events-last exam Patient states that she is feeling better this morning. she has be walking the halls, eating when hungry, states no episodes of SOB. Did have an episode of chest pain in the middle of the night that improved with pain meds. Took a Senna last night but has not had a bowel movement since being admitted to [facility]. She asked about having a suppository. Review of Systems General: No Chills, No Night Sweats, No Fatigue, No Malaise, No Appetite, No Other Pulmonary: Pleuritic Chest Pain Cardiovascular: No: Palpitations, Orthopnea, Edema, Lt Headedness Focused Exam Lactate Level 04/16/19 15:46: Lactic Acid Level 0.88 Respiratory: Chest Non Tender, No Accessory Muscle Use, No Respiratory Distress, Expiration, Pleural Rub, Rhonci Cardiovascular: Regular Rate, Rhythm, No Edema, No Gallop, No JVD, No Murmur, Normal Peripheral Pulses Capillary Refill: Less Than 3 Seconds Peripheral Pulses: 2+ Dorsalis Pedis (R), 2+ Left Dors-Pedis (L), 2+ Radial Pulses (R), 2+ Radial Pulses (L) Skin: normal color, warm/dry Objective Exam Vital Signs Vital Signs Date Time Temp Pulse Resp B/P (MAP) Pulse Ox O2 Delivery O2 Flow Rate FiO2 04/18/19 08:11 91 Room Air 04/18/19 07:11 96.7 71 20 112/59 (76) 04/17/19 09:00 1.00 Capillary Refill : Less Than 3 Seconds General Appearance: No Apparent Distress, WD/WN HEENT: Moist Mucous Membranes; No Scleral Icterus (L), No Scleral Icterus (R) Neck: Non Tender, Supple; No Lymphadenopathy (L), No Lymphadenopathy (R), No Tender Lateral, No Tender Midline Respiratory: No Chest Non Tender, No Lungs Clear, No Normal Breath Sounds; No Accessory Muscle Use, No Respiratory Distress, Pleural Rub, Rhonci Cardiovascular: Regular Rate, Rhythm, No Edema, No Gallop, No JVD, No Murmur, Normal Peripheral Pulses; No Bradycardia, No Diastolic Murmur, No Systolic Murmur, No Extra Beats, No Friction Rub, No Gallop/S3, No Gallop/S4, No Irregularly Irregular, No JVD, No Tachycardia, No Other Gastrointestinal: Normal Bowel Sounds, No Pulsatile Mass, Non Tender, Soft Back: Normal Inspection, No CVA Tenderness, Other Extremity: Normal Capillary Refill, Normal Inspection, Non Tender, No Calf Tenderness, No Pedal Edema Neurologic/Psychiatric: Alert, No Motor/Sensory Deficits, Normal Mood/Affect Reflexes: 2+ Knee (R), 2+ Knee (L) Skin: Normal Color, Warm/Dry Lymphatic: No Adenopathy Results/Procedures Lab Laboratory Tests 04/18/19 08:10 Patient resulted labs reviewed. Assessment/Plan Assessment and Plan Assess & Plan/Chief Complaint Pneumonia * continue Abx (vanco and cefepime) * Breathing Tx * IS Pleural effusion - status post thoracentesis * culture * pulm consult HTN * resume HCTZ if BP rises Hypercholesterolemia * continue atorvastatin NIDMII * monitor blood sugar * Treat is lvls rise above 180 RLS * gabapentin 300mg TID per patient schedule * Constipation * Took Senna last night * Doctylax suppository ordered Clinical Quality Measures Admission Status Admission Status: Observation AMI/AHF: ASA po Prior to arrival: No DVT/VTE Risk/Contraindication: Risk Factor Score Per Nursin RFS Level Per Nursing on Admit: 2=Moderate PIPPA WAHL MD 04/18/19 11:13am: Objective Exam Respiratory: Lungs Clear, Normal Breath Sounds, No Accessory Muscle Use, No Respiratory Distress Cardiovascular: No Murmur Assessment/Plan Assessment and Plan Assess & Plan/Chief Complaint Pulm consulted, appreciate recs. Patient improving and feeling well. On room air. MRSA screen negative and fluid culture from thoracentesis prelim is negative. Will DC Vanc. Diagnosis/Problems Diagnosis/Problems (1) Essential (primary) hypertension (2) Non-insulin dependent type 2 diabetes mellitus (3) Constipation (4) Failure of outpatient treatment Status: Acute (5) Pleural effusion on left Status: Acute (6) Bilateral pneumonia Status: Acute Supervisory-Addendum Brief Verification & Attestation Time: Verification & Attestat.: 12:23 Participated in pt care: history, MDM, physical Personally performed: exam, history, MDM, supervision of care Care discussed with: Medical Student Procedures: n/a Results interpretation: Verified all documentation Verification and Attestation of Medical Student E/M Service A medical student performed and documented this service in my presence. I reviewed and verified all information documented by the medical student and made modifications to such information, when appropriate. I personally performed the physical exam and medical decision making. Pippa Wahl, Apr 18, 2019,11:13 ROMINA TRINIDAD,MED STUDENT Apr 18, 2019 7:51 am PIPPA WAHL MD Apr 18, 2019 11:13 am
[2019-04-18] MEDS: RT-ALBUTEROL/IPRATROPIUM 3 ML (DUONEB) VIAL INH SCH ×2 (08:11→20:11)
--- NOTE | 2019-04-18 08:19 | Pulmonary Progress Note ---
Subjective Time Seen by a Provider: 06:02 Subjective/Events-last exam No complications noted. Sepsis Event Evaluation Height, Weight, BMI Height: 5'7.00" Weight: 182lbs. 9.6oz. 82.731441xo; 25.7 BMI Method:Stated Focused Exam Lactate Level 04/16/19 15:46: Lactic Acid Level 0.88 Exam Exam Vital Signs Date Time Temp Pulse Resp B/P (MAP) Pulse Ox O2 Delivery O2 Flow Rate FiO2 04/18/19 07:11 96.7 71 20 112/59 (76) 94 Room Air 04/18/19 07:00 67 04/18/19 04:00 97.2 68 18 104/53 (70) 91 Room Air 04/18/19 01:00 71 04/18/19 00:00 98.0 73 18 112/59 (76) 93 Room Air 04/17/19 20:00 Room Air 04/17/19 19:39 98.0 76 18 126/70 (88) 96 Room Air 04/17/19 19:00 78 04/17/19 15:56 99.1 80 20 117/56 (76) 94 Room Air 04/17/19 14:00 82 04/17/19 12:00 98.1 78 18 136/67 (90) 93 Room Air 04/17/19 12:00 Room Air 04/17/19 11:46 97.6 04/17/19 09:47 91 Room Air 04/17/19 09:00 70 17 112/59 (76) 94 Nasal Cannula 1.00 I & O 04/18/19 07:00 Intake Total 2622.5 ml Output Total 450 ml Balance 2172.5 ml Height & Weight Height: 5'7.00" Weight: 182lbs. 9.6oz. 82.549978qw; 25.7 BMI Method:Stated General Appearance: Anxious, Thin HEENT: PERRL/EOMI, Normal ENT Inspection, Pharynx Normal Neck: Full Range of Motion, Non Tender, Supple Respiratory: No Accessory Muscle Use, No Respiratory Distress, Crackles, De creased Breath Sounds Cardiovascular: Regular Rate, Rhythm Capillary Refill: Less Than 3 Seconds Gastrointestinal: normal bowel sounds, non tender, soft Extremity: Normal Capillary Refill, No Pedal Edema Neurologic/Psychiatric: Alert, Oriented x3 Skin: Normal Color, Warm/Dry Lymphatic: No Adenopathy Results Lab Laboratory Tests 04/16/19 14:00 04/17/19 03:10 Assessment/Plan Assessment/Plan bibasilar PNA with parapneumonic exudative left pleural effusion r/o Emphyema - failed out pt treatment -s/p L thoracentesis this Am 800cc of serious sanguinous fluid -SVNs -Repeat CXR and labs -Continue vanco and merrem and await cultures Pleurisy -Toradol Small pericardial effusion per CT chest -Check echocardiogram Atelectasis -Start IS Hypoxia -Oxygen via NC Anemia -Monitor N/V - no abdominal pain -- probably secondary to home Lortab -Amylase lipase - are normal FLORINA -Treated with CPAP therapy Hx of lung lung nodule RLL stable since 2013 HX RUL calcified granuloma ROLANDA YOST DO Apr 18, 2019 08:19
[2019-04-18 08:27] LABS: BASOPHILS # (AUTO) 0.1 10^3/uL (0.0-0.1); BASOPHILS % (AUTO) 0 % (0-10); EOSINOPHILS # (AUTO) 0.6 10^3/uL (0.0-0.3); EOSINOPHILS % (AUTO) 4 % (0-10); HEMATOCRIT 34 % (35-52); HEMOGLOBIN 10.6 G/DL (11.5-16.0); LYMPHOCYTES # (AUTO) 2.2 X 10^3 (1.0-4.0); LYMPHOCYTES % (AUTO) 17 % (12-44); MEAN CORPUSCULAR HEMOGLOBIN 29 PG (25-34); MEAN CORPUSCULAR HGB CONC 31 G/DL (32-36); MEAN CORPUSCULAR VOLUME 93 FL (80-99); MEAN PLATELET VOLUME 8.9 FL (7.4-10.4); MONOCYTES # (AUTO) 0.4 X 10^3 (0.0-1.0); MONOCYTES % (AUTO) 3 % (0-12); NEUTROPHILS # (AUTO) 9.5 X 10^3 (1.8-7.8); NEUTROPHILS % (AUTO) 75 % (42-75); PLATELET COUNT 418 10^3/uL (130-400); RED CELL DISTRIBUTION WIDTH 14.7 % (10.0-14.5); WHITE BLOOD COUNT 12.7 10^3/uL (4.3-11.0)
[2019-04-18] MEDS: BISACODYL 10 MG SUPP (DULCOLAX) PR PRN (08:38)
[2019-04-18] MEDS: MAGNESIUM OXIDE (MAG-OX)400 MG TAB PO SCH ×4 (08:38→22:02)
[2019-04-18] MEDS: SENNA W/DOCUSATE (SENOKOT S) TABLET PO SCH ×2 (08:38→22:02)
--- NOTE | 2019-04-18 08:41 | Diagnostic Imaging Report ---
EXAM: CHEST PA/LAT (2 VIEW) INDICATION: Pneumonia. COMPARISON: Chest radiograph 04/17/2019. FINDINGS: Normal heart size and central pulmonary vascularity. Stable small left pleural effusion and consolidation in the left lung base. No pneumothorax. No acute osseous findings. IMPRESSION: Stable exam including small left pleural effusion and consolidation in the left lung base. Dictated by: Dictated on workstation # [id number]
[2019-04-18 08:43] LABS: CALCIUM 8.7 MG/DL (8.5-10.1); CREATININE SERUM 1.14 MG/DL (0.60-1.30); MAGNESIUM 2.2 MG/DL (1.8-2.4); PHOSPHORUS 3.5 MG/DL (2.3-4.7); POTASSIUM 4.3 MMOL/L (3.6-5.0)
[2019-04-18] MEDS: GABAPENTIN 300 MG (NEURONTIN) CAP PO SCH ×3 (12:56→22:02)
[2019-04-18] MEDS ORDERED: CEFEPIME 2 GM (MAXIPIME) VIAL ONE (17:42)
[2019-04-18] MEDS ORDERED: WATER (STERILE) FOR INJECTION 20 ML ONE (17:42)
[2019-04-18] MEDS: CEFEPIME 2,000 MG/SWFI 20 ML IV PUSH IV SCH ×2 (17:53)
[2019-04-18] MEDS: HYDROCHLOROTHIAZIDE 25 MG (HCTZ) TAB PO SCH (22:02)
[2019-04-18] MEDS: ATORVASTATIN 40 MG (LIPITOR) TABLET PO SCH (22:02)
[2019-04-19] VITALS (7 sets, daily range): BP systolic 109–157; BP diastolic 56–76
[2019-04-19] MEDS: KETOROLAC 30 MG/ML VIAL IVP PRN (04:46)
[2019-04-19 05:45] LABS: BASOPHILS # (AUTO) 0.1 10^3/uL (0.0-0.1); BASOPHILS % (AUTO) 1 % (0-10); EOSINOPHILS # (AUTO) 0.5 10^3/uL (0.0-0.3); EOSINOPHILS % (AUTO) 5 % (0-10); HEMATOCRIT 30 % (35-52); HEMOGLOBIN 9.4 G/DL (11.5-16.0); LYMPHOCYTES # (AUTO) 1.9 X 10^3 (1.0-4.0); LYMPHOCYTES % (AUTO) 19 % (12-44); MEAN CORPUSCULAR HEMOGLOBIN 29 PG (25-34); MEAN CORPUSCULAR HGB CONC 32 G/DL (32-36); MEAN CORPUSCULAR VOLUME 92 FL (80-99); MEAN PLATELET VOLUME 9.2 FL (7.4-10.4); MONOCYTES # (AUTO) 0.6 X 10^3 (0.0-1.0); MONOCYTES % (AUTO) 5 % (0-12); NEUTROPHILS # (AUTO) 7.2 X 10^3 (1.8-7.8); NEUTROPHILS % (AUTO) 71 % (42-75); PLATELET COUNT 390 10^3/uL (130-400); RED CELL DISTRIBUTION WIDTH 14.5 % (10.0-14.5); WHITE BLOOD COUNT 10.2 10^3/uL (4.3-11.0)
[2019-04-19] MEDS: LACTOBACILLUS ACIDOPHILUS (PROBIOTIC) CAPSULE PO SCH ×3 (05:58→16:34)
[2019-04-19] MEDS: CATHETER FLUSH 10 ML SYR IV SCH ×3 (05:59→22:42)
[2019-04-19 06:09] LABS: CALCIUM 8.7 MG/DL (8.5-10.1); CREATININE SERUM 0.93 MG/DL (0.60-1.30); MAGNESIUM 2.1 MG/DL (1.8-2.4); PHOSPHORUS 3.5 MG/DL (2.3-4.7); POTASSIUM 4.2 MMOL/L (3.6-5.0)
[2019-04-19] MEDS: POTASSIUM CL 10MEQ/50ML IVPB 50 ML IV SCH (06:32)
[2019-04-19] MEDS: MAGNESIUM 1 GM/100 ML IVPB 100 ML IV SCH (06:32)
[2019-04-19] MEDS: KCL 20 MEQ TAB (K-DUR) PO SCH (06:32)
--- NOTE | 2019-04-19 07:25 | Pulmonary Progress Note ---
Subjective Time Seen by a Provider: 06:01 Subjective/Events-last exam Pt feels improved however still running fevers. Sepsis Event Evaluation Height, Weight, BMI Height: 5'7.00" Weight: 181lbs. 8.0oz. 82.286155xj; 25.7 BMI Method:Stated Focused Exam Lactate Level 04/16/19 15:46: Lactic Acid Level 0.88 Exam Exam Vital Signs Date Time Temp Pulse Resp B/P (MAP) Pulse Ox O2 Delivery O2 Flow Rate FiO2 04/19/19 07:16 97.7 71 20 109/70 (83) 94 NIV CPAP 04/19/19 04:10 98.4 84 18 117/69 (85) 91 Room Air 04/19/19 01:00 78 04/19/19 00:07 97.5 84 19 128/75 (92) 92 NIV CPAP 04/18/19 22:04 86 123/66 (85) 04/18/19 21:48 99.4 04/18/19 20:59 101.4 93 22 125/69 (87) 91 Room Air 04/18/19 20:59 101.9 04/18/19 20:11 90 Room Air 04/18/19 20:00 Room Air 04/18/19 19:00 90 04/18/19 15:54 99.1 86 18 145/75 (98) 98 Room Air 04/18/19 13:00 76 04/18/19 11:13 97.2 71 20 122/72 (89) 97 Room Air 04/18/19 08:11 91 Room Air 04/18/19 08:00 Room Air I & O 04/19/19 07:00 Intake Total 2110 ml Output Total 2 ml Balance 2108 ml Height & Weight Height: 5'7.00" Weight: 181lbs. 8.0oz. 82.366806hv; 25.7 BMI Method:Stated General Appearance: No Apparent Distress, WD/WN, Anxious HEENT: PERRL/EOMI, Normal ENT Inspection, Pharynx Normal Neck: Full Range of Motion, Non Tender, Supple Respiratory: No Accessory Muscle Use, No Respiratory Distress, Crackles, Decreased Breath Sounds Cardiovascular: Regular Rate, Rhythm, No Edema, No Murmur Capillary Refill: Less Than 3 Seconds Gastrointestinal: normal bowel sounds, non tender, soft, no organomegaly Extremity: Normal Capillary Refill, Non Tender, No Pedal Edema Neurologic/Psychiatric: Alert, Oriented x3 Skin: Normal Color, Warm/Dry Lymphatic: No Adenopathy Results Lab Laboratory Tests 04/18/19 08:10 04/19/19 05:22 Assessment/Plan Assessment/Plan bibasilar PNA with parapneumonic exudative left pleural effusion r/o Emphyema - Tm 101.9 -s/p L thoracentesis this Am 800cc of serious sanguinous fluid -Failed out pt treatment with Levaquin -Improving leukocytosis -SVNs -Repeat CXR and labs -PT now on Cefepime -Not ready for discharge yet. I am still concerned for developing empyema Small pericardial effusion per CT chest -Check echocardiogram Atelectasis -Start IS Hypoxia -Oxygen via NC Anemia -Monitor N/V - no abdominal pain -- probably secondary to home Lortab -Amylase lipase - are normal FLORINA -Treated with CPAP therapy Hx of lung lung nodule RLL stable since 2013 HX RUL calcified granuloma ROLANDA OYST DO Apr 19, 2019 07:25
[2019-04-19] MEDS: RT-ALBUTEROL/IPRATROPIUM 3 ML (DUONEB) VIAL INH SCH ×2 (07:42→19:48)
[2019-04-19] MEDS: SENNA W/DOCUSATE (SENOKOT S) TABLET PO SCH ×2 (08:18→21:24)
[2019-04-19] MEDS: MAGNESIUM OXIDE (MAG-OX)400 MG TAB PO SCH ×4 (08:18→21:24)
--- NOTE | 2019-04-19 08:22 | Diagnostic Imaging Report ---
INDICATION: Pneumonia followup. Shortness of breath with cough. COMPARISON: 04/18/2019. FINDINGS: Left basilar effusion and consolidated infiltrate remains unchanged. Some infiltrate in the right lower lung also present, unchanged. Calcified granulomas noted on the right. The heart is not enlarged. No pulmonary edema. IMPRESSION: No significant overall change has occurred since previous exam with moderate left pleural effusion and infiltrate. Mild right basilar infiltrate is present again as well. Dictated by: Dictated on workstation # [id number]
--- NOTE | 2019-04-19 09:55 | Progress Note - Hospitalist ---
ROMINA TRINIDAD,MED STUDENT 04/19/19 9:55am: Subjective HPI/CC On Admission Date Seen by Provider: Apr 19, 2019 Time Seen by Provider: 09:50 Patient is a 73y/o female who presented left sided chest pain and SOB that started March 20. Chest pain has gets worse with exertion that radiates to left shoulder, pain improves with rest. Pt has been to [facility] in [place] from March 20- and got a heart cath done and reported as normal. Saw her PA on March 25 and was prescribed Levaquin 500mg for 7days, saw Dr Zapien at [facility] on April 01 and was given prednisone. Saw Dr. Zapien on April 16 and started vomiting and was sent to ER at [facility]. CT of chest showed a loculated pleural effusion on the left Subjective/Events-last exam Patient states that she is feeling better, has being doing her IS tx every 2hrs and has been going for walks in [address]. Pt said that she had fever, chills and chest pain last night but resolved on own. Review of Systems General: Chills HEENT: No Head Aches Pulmonary: Pleuritic Chest Pain Cardiovascular: Chest Pain, Lt Headedness; No: Palpitations, Orthopnea, Other Gastrointestinal: No: Nausea, Vomiting, Abdominal Pain Genitourinary: No Dysuria, No Frequency Musculoskeletal: No: leg pain Neurological: No: Weakness, Numbness Focused Exam Lactate Level 04/16/19 15:46: Lactic Acid Level 0.88 Objective Exam Vital Signs Vital Signs Date Time Temp Pulse Resp B/P (MAP) Pulse Ox O2 Delivery O2 Flow Rate FiO2 04/19/19 08:00 Room Air 04/19/19 07:50 77 93 21 04/19/19 07:16 97.7 20 109/70 (83) 04/17/19 09:00 1.00 Capillary Refill : Less Than 3 Seconds General Appearance: No Apparent Distress, WD/WN Neck: No Lymphadenopathy (L), No Lymphadenopathy (R), No Tender Lateral, No Tender Midline Respiratory: Chest Non Tender, Normal Breath Sounds, No Accessory Muscle Use, No Respiratory Distress, Inspiration Cardiovascular: No Murmur Gastrointestinal: Normal Bowel Sounds, Non Tender, Soft Extremity: Normal Capillary Refill, Normal Inspection, Non Tender, No Calf Tenderness, No Pedal Edema Neurologic/Psychiatric: Alert, No Motor/Sensory Deficits, Normal Mood/Affect Skin: Normal Color, Warm/Dry Results/Procedures Lab Laboratory Tests 04/19/19 05:22 Patient resulted labs reviewed. Assessment/Plan Assessment and Plan Assess & Plan/Chief Complaint Pneumonia * Stop vancomycin * Continue Cefepime * Breathing Tx * IS * CXR is unchanged * follow CXR for develop of empyema Pleural effusion - status post thoracentesis * culture - NGTD * pulm consult Atelectasis * continue IS HTN * continue HCTZ Hypercholesterolemia * continue atorvastatin NIDMII * monitor blood sugar * Treat is lvls rise above 180 RLS * gabapentin 300mg TID per patient schedule * Iron study pending Normocytic anemia * trend * monitor for active bleeds * Iron study pending Constipation * Senna PRN * Dulcolax suppository PRN Clinical Quality Measures AMI/AHF: ASA po Prior to arrival: No DVT/VTE Risk/Contraindication: Risk Factor Score Per Nursin RFS Level Per Nursing on Admit: 2=Moderate PIPPA WAHL MD 04/19/19 11:56am: Subjective Subjective/Events-last exam Patient reports feeling better. Up ambulating without difficulty. Febrile overnight. Objective Exam Respiratory: Lungs Clear Cardiovascular: Regular Rate, Rhythm Neurologic/Psychiatric: Oriented x3 Assessment/Plan Assessment and Plan Assess & Plan/Chief Complaint Febrile overnight. Concern for developing empyema. CXR stable. Consider repeat CT chest. Discussed with Dr Zapien. Continue on Cefepime. Continue bowel regimen. Diagnosis/Problems Diagnosis/Problems (1) Essential (primary) hypertension (2) Constipation (3) Failure of outpatient treatment Status: Acute (4) Pleural effusion on left Status: Acute (5) Bilateral pneumonia Status: Acute (6) Non-insulin dependent type 2 diabetes mellitus Supervisory-Addendum Brief Verification & Attestation Time: Verification & Attestat.: 11:56 Participated in pt care: history, MDM, physical Personally performed: exam, history, MDM, supervision of care Care discussed with: Medical Student Procedures: n/a Results interpretation: Verified all documentation Verification and Attestation of Medical Student E/M Service A medical student performed and documented this service in my presence. I reviewed and verified all information documented by the medical student and made modifications to such information, when appropriate. I personally performed the physical exam and medical decision making. Pippa Wahl, Apr 19, 2019,11:56 ROMINA TRINIDAD,MED STUDENT Apr 19, 2019 9:55 am PIPPA WAHL MD Apr 19, 2019 11:56 am
[2019-04-19] MEDS: GABAPENTIN 300 MG (NEURONTIN) CAP PO SCH ×3 (12:31→22:43)
[2019-04-19] MEDS: ETODOLAC 300 MG (LODINE) CAP PO SCH ×2 (12:33→21:25)
[2019-04-19] MEDS ORDERED: KETOROLAC 15 MG/ML VIAL ONE (16:25)
[2019-04-19] MEDS ORDERED: KETOROLAC 15 MG/ML VIAL IVP ONE (16:30)
[2019-04-19] MEDS ORDERED: LIDOCAINE 4% (SALONPAS) PATCH TOP PRN (16:30)
[2019-04-19] MEDS: BISACODYL 10 MG SUPP (DULCOLAX) PR PRN (16:34)
[2019-04-19] MEDS ORDERED: WATER (STERILE) FOR INJECTION 20 ML ONE (18:06)
[2019-04-19] MEDS ORDERED: CEFEPIME 2 GM (MAXIPIME) VIAL ONE (18:06)
[2019-04-19] MEDS: CEFEPIME 2,000 MG/SWFI 20 ML IV PUSH IV SCH ×2 (18:15)
[2019-04-19] MEDS: HYDROCHLOROTHIAZIDE 25 MG (HCTZ) TAB PO SCH (21:24)
[2019-04-19] MEDS: ATORVASTATIN 40 MG (LIPITOR) TABLET PO SCH (21:25)
[2019-04-19] MEDS: LIDOCAINE PATCH REMOVAL TP SCH (22:42)
[2019-04-20] VITALS: BP 143/63
[2019-04-20] MEDS: ACETAMINOPHEN 500 MG TAB (TYLENOL) PO PRN ×2 (00:56→12:37)
[2019-04-20 04:00] VITALS: BP 133/58
[2019-04-20 05:26] LABS: BASOPHILS % (AUTO) 1 % (0-10); EOSINOPHILS # (AUTO) 0.6 10^3/uL (0.0-0.3); EOSINOPHILS % (AUTO) 8 % (0-10); HEMATOCRIT 26 % (35-52); HEMOGLOBIN 8.5 G/DL (11.5-16.0); LYMPHOCYTES # (AUTO) 1.9 X 10^3 (1.0-4.0); LYMPHOCYTES % (AUTO) 26 % (12-44); MEAN CORPUSCULAR HEMOGLOBIN 29 PG (25-34); MEAN CORPUSCULAR HGB CONC 32 G/DL (32-36); MEAN CORPUSCULAR VOLUME 91 FL (80-99); MEAN PLATELET VOLUME 10.4 FL (7.4-10.4); MONOCYTES # (AUTO) 0.6 X 10^3 (0.0-1.0); MONOCYTES % (AUTO) 8 % (0-12); NEUTROPHILS # (AUTO) 4.4 X 10^3 (1.8-7.8); NEUTROPHILS % (AUTO) 59 % (42-75); PLATELET COUNT 478 10^3/uL (130-400); RED CELL DISTRIBUTION WIDTH 15.1 % (10.0-14.5); WHITE BLOOD COUNT 7.4 10^3/uL (4.3-11.0)
[2019-04-20 05:46] LABS: CALCIUM 8.8 MG/DL (8.5-10.1); CREATININE SERUM 1.01 MG/DL (0.60-1.30); MAGNESIUM 2.2 MG/DL (1.8-2.4); PHOSPHORUS 5.8 MG/DL (2.3-4.7); POTASSIUM 4.5 MMOL/L (3.6-5.0)
[2019-04-20] MEDS: MAGNESIUM 1 GM/100 ML IVPB 100 ML IV SCH (05:55)
[2019-04-20] MEDS: KCL 20 MEQ TAB (K-DUR) PO SCH (05:55)
[2019-04-20] MEDS: POTASSIUM CL 10MEQ/50ML IVPB 50 ML IV SCH (05:55)
--- NOTE | 2019-04-20 06:09 | Pulmonary Progress Note ---
Subjective Time Seen by a Provider: 06:20 Subjective/Events-last exam Pt is complaining of increased SOB and pleuritic CP. CXR shows worse left p leural effusion. Sepsis Event Evaluation Height, Weight, BMI Height: 5'7.00" Weight: 181lbs. 8.0oz. 82.539205jv; 25.7 BMI Method:Stated Exam Exam Vital Signs Date Time Temp Pulse Resp B/P (MAP) Pulse Ox O2 Delivery O2 Flow Rate FiO2 04/20/19 04:00 97.3 57 20 133/58 (83) 95 NIV CPAP 04/20/19 01:00 62 04/20/19 00:00 97.7 62 18 143/63 (89) 94 NIV CPAP 04/19/19 21:03 Nasal Cannula 2.00 04/19/19 20:28 98.4 94 20 157/76 (103) 93 Room Air 04/19/19 20:00 Room Air 04/19/19 19:48 86 Room Air 04/19/19 19:00 81 04/19/19 15:26 98.1 63 20 115/56 (75) 94 Room Air 04/19/19 13:00 65 04/19/19 11:12 98.6 71 20 131/74 (93) 93 Room Air 04/19/19 08:00 Room Air 04/19/19 07:50 77 93 21 04/19/19 07:42 93 Room Air 04/19/19 07:16 97.7 71 20 109/70 (83) 94 NIV CPAP 04/19/19 07:00 72 I & O 04/20/19 07:00 Intake Total 1682 ml Balance 1682 ml Height & Weight Height: 5'7.00" Weight: 181lbs. 8.0oz. 82.207238gt; 25.7 BMI Method:Stated General Appearance: No Apparent Distress, Anxious HEENT: PERRL/EOMI, Pharynx Normal Neck: Full Range of Motion, Non Tender, Supple Respiratory: No Accessory Muscle Use, No Respiratory Distress, Crackles, Decreased Breath Sounds Cardiovascular: Regular Rate, Rhythm, No JVD, No Murmur Capillary Refill: Less Than 3 Seconds Gastrointestinal: normal bowel sounds, non tender, soft Extremity: Normal Capillary Refill Neurologic/Psychiatric: Alert, Oriented x3 Skin: Normal Color, Warm/Dry Lymphatic: No Adenopathy Results Lab Laboratory Tests 04/18/19 08:10 04/19/19 05:22 04/20/19 04:40 Assessment/Plan Assessment/Plan bibasilar PNA with parapneumonic exudative left pleural effusion -s/p L thoracentesis this Am 800cc of serious sanguinous fluid -Failed out pt treatment with Levaquin -Improving leukocytosis -Pt is having worse SOB and pleuritic CP. -Repeat Chest CT. -May need chest tube vs decortication/pleurodesis -Pt states if she needs surgery she wants to transfer to [place]. -SVNs -Cefepime -Cultures are negative thus far. Small pericardial effusion per CT chest -Check echocardiogram Atelectasis -Start IS Hypoxia -Oxygen via NC Anemia -Monitor N/V - no abdominal pain -- probably secondary to home Lortab -Amylase lipase - are normal FLORINA -Treated with CPAP therapy Hx of lung lung nodule RLL stable since 2013 HX RUL calcified granuloma ROLANDA YSOT DO Apr 20, 2019 06:09
[2019-04-20] MEDS ORDERED: morphine INJ 4 MG/ML 1 ML (VIAL/SYRINGE) IVP PRN (06:30)
[2019-04-20] MEDS: LACTOBACILLUS ACIDOPHILUS (PROBIOTIC) CAPSULE PO SCH ×3 (06:32→16:35)
[2019-04-20] MEDS: CATHETER FLUSH 10 ML SYR IV SCH ×3 (06:32→21:22)
[2019-04-20] MEDS ORDERED: NS 100 ML (IVPB) BAG IV ONE (07:30)
[2019-04-20] MEDS ORDERED: HOLD METFORMIN - RECEIVED CONTRAST 20 ML VIAL IV SCH (07:30)
[2019-04-20] MEDS ORDERED: IOHEXOL 350 MG/ML 100 ML (OMNIPAQUE 350) VIAL IV ONE (07:30)
[2019-04-20 07:40] VITALS: BP 118/80
--- NOTE | 2019-04-20 08:01 | Diagnostic Imaging Report ---
PROCEDURE: CT chest with contrast only. TECHNIQUE: Multiple contiguous axial images were obtained through the chest after administration of intravenous contrast. Auto Exposure Controls were utilized during the CT exam to meet ALARA standards for radiation dose reduction. INDICATION: Evaluate for emphysema. Shortness of breath. COMPARISON: Chest radiograph on 04/19/2019. CTA chest on 04/16/2019. FINDINGS: The heart size is enlarged with trace pericardial effusion. There is scattered aortic and coronary atherosclerotic plaque without aneurysm. No evidence of aortic dissection. The pulmonary arteries are visualized to the segmental branches without evidence of pulmonary embolism. Stable mildly prominent mediastinal lymph nodes. No pathologically enlarged lymphadenopathy is seen in the chest. Mild centrilobular emphysema is present, greatest in the apices. Mildly increased patchy opacities are seen in the right lung base with compressive atelectasis in the left lower lobe. Bulky calcified granuloma is again noted in the right upper lobe. No pulmonary masses. Stable to slightly increased moderate left pleural effusion with fluid tracking in the fissure on the left. No pneumothorax. No central endobronchial obstructing lesions are identified. The osseous structures demonstrate no acute abnormalities. Limited views of the upper abdominal structures demonstrate no acute abnormalities. Punctate calcification is seen in the head of the pancreas. The gallbladder is surgically absent. IMPRESSION: 1. Mildly increased opacities in the right lung base with slight increase in the moderate left pleural effusion and compressive atelectasis in the left lower lobe. 2. Mild centrilobular emphysema, greatest in the apices. 3. Cardiomegaly. Dictated by: Dictated on workstation # [id number]
[2019-04-20] MEDS: SENNA W/DOCUSATE (SENOKOT S) TABLET PO SCH ×2 (08:10→21:20)
[2019-04-20] MEDS: ETODOLAC 300 MG (LODINE) CAP PO SCH ×2 (08:10→21:20)
[2019-04-20] MEDS: MAGNESIUM OXIDE (MAG-OX)400 MG TAB PO SCH ×4 (08:10→21:21)
--- NOTE | 2019-04-20 11:12 | Diagnostic Imaging Report ---
INDICATION: Pleural effusion. Sonographic guidance of the posterior thorax was performed. There is moderate-sized pleural effusion. There appears to be some consolidated lung within the left base. A questionable complexity to the fluid. IMPRESSION: Marking of left posterior chest for thoracentesis. Dictated by: Dictated on workstation # [id number]
--- NOTE | 2019-04-20 11:49 | Progress Note - Hospitalist ---
Subjective HPI/CC On Admission Date Seen by Provider: Apr 20, 2019 Time Seen by Provider: 09:00 Subjective/Events-last exam She reports dyspnea this morning. She reports it is worse with activity and with speaking. She denies any fevers. She does have a cough. She reports left-sided pleuritic chest pain. She denies nausea, vomiting, abdominal pain. Review of Systems Cardiovascular: Chest Pain Gastrointestinal: No: Nausea, Vomiting, Abdominal Pain, Diarrhea, Constipation Objective Exam Vital Signs Vital Signs Date Time Temp Pulse Resp B/P (MAP) Pulse Ox O2 Delivery O2 Flow Rate FiO2 04/20/19 08:05 Room Air 04/20/19 07:40 98.4 61 20 118/80 (93) 96 04/19/19 21:03 2.00 04/19/19 07:50 21 Capillary Refill : Less Than 3 Seconds General Appearance: No Apparent Distress HEENT: PERRL/EOMI Respiratory: No Respiratory Distress, Crackles, Decreased Breath Sounds; No Respiratory Distress, No Wheezing Cardiovascular: Regular Rate, Rhythm, No Murmur Gastrointestinal: Normal Bowel Sounds, Non Tender, Soft Extremity: Normal Inspection, Non Tender, No Pedal Edema Neurologic/Psychiatric: Alert, Oriented x3 Skin: Normal Color, Warm/Dry Lymphatic: No Adenopathy Results/Procedures Lab Laboratory Tests 04/20/19 04:40 Patient resulted labs reviewed. Imaging: Reviewed Imaging Report Assessment/Plan Assessment and Plan Assess & Plan/Chief Complaint 73-year-old female with bilateral pneumonia and associated parapneumonic effusions. Bilateral pneumonia Bilateral parapneumonic effusions Continue cefepime Initial thoracentesis and negative for empyema Imaging showing recollection of fluid and worsening symptoms Pulmonology following, planning for repeat thoracentesis today Anemia Hemoglobin 8.5, likely dilutional with positive fluid balance Continue to monitor Hypertension Continue hydrochlorothiazide Hypercholesterolemia Continue statin FLORINA Continue CPAP RLS Continue gabapentin Constipation Continue bowel regimen Diagnosis/Problems Diagnosis/Problems (1) Bilateral pneumonia Status: Acute Qualifiers: Pneumonia type: due to unspecified organism Lung location: unspecified part of lung Qualified Codes: J18.9 - Pneumonia, unspecified organism (2) Pleural effusion on left Status: Acute (3) Anemia Status: Acute Qualifiers: Iron deficiency anemia type: unspecified iron deficiency Clinical Quality Measures AMI/AHF: ASA po Prior to arrival: No DVT/VTE Risk/Contraindication: Risk Factor Score Per Nursin RFS Level Per Nursing on Admit: 2=Moderate APRYL JAVED MD Apr 20, 2019 11:49
[2019-04-20] MEDS: GABAPENTIN 300 MG (NEURONTIN) CAP PO SCH ×3 (12:25→21:21)
[2019-04-20 12:50] VITALS: BP 136/73
[2019-04-20] MEDS: RT-ALBUTEROL/IPRATROPIUM 3 ML (DUONEB) VIAL INH SCH ×2 (14:32→22:16)
--- NOTE | 2019-04-20 15:05 | NUR ---
DR. YOST HERE WITH PATIENT TO BEGIN THORACENTESIS PROCEDURE.
--- NOTE | 2019-04-20 15:15 | NUR ---
DR. YOST TO BEGIN THORACENTESIS. 360ML LEFT PLEURAL FLUID DRAINED.
--- NOTE | 2019-04-20 15:30 | NUR ---
THORACENTESIS PROCEDURE FINISHED.
--- NOTE | 2019-04-20 15:45 | Pulmonary Procedures ---
Pulmonary Procedures Date of Procedure Date of Service: Apr 20, 2019 Procedure: US guided complex thoracentesis Preop DX: Left pleural effusion post op DX: Same 350 cc of yellow fluid obtained) Complications: None After informed consent obtained US was used to localize pleural fluid. Pt has [bilateral L>R] pleural effusions. Skin was anesthetized at approximately the 10th ICS posterior axillary line. Thoracentesis needle was advanced through the 10th ICS posterior axillary line. Needle was removed and catheter left in place. 350cc of yellow fluid obtained using vacuum bottles. Catheter was then removed. Pt tolerated procedure well. No complications noted. ROLANDA YOST DO Apr 20, 2019 15:45
[2019-04-20 16:05] VITALS: BP 131/74
--- NOTE | 2019-04-20 16:12 | Diagnostic Imaging Report ---
INDICATION: Pleural effusion. EXAMINATION: Portable chest at 3:50 PM. FINDINGS: There is a patchy area of consolidation at the right medial lung base. The left pleural effusion has been largely evacuated. There is minimal residual left basilar atelectasis. There is no pneumothorax. IMPRESSION: No evidence for pneumothorax following thoracentesis. Dictated by: Dictated on workstation # [id number]
[2019-04-20 16:20] LABS: GLUCOSE,BODY FLUID 121 MG/DL; LDH,BODY FLUID 236 U/L; TOTAL PROTEIN,BODY FLUID 4.1 G/DL
[2019-04-20 16:45] LABS: BODY FLUID APPEARENCE MOD CLDY; BODY FLUID COLOR YELLOW; BODY FLUID PH 7.3; BODY FLUID RBC COUNT 2200 /uL; BODY FLUID SOURCE PLEURAL; BODY FLUID WBC TOTAL COUNT 2700 /uL
[2019-04-20 16:51] LABS: BF OTHER CELLS 11 %; LYMPHOCYTES,BODY FLUID 7 %
[2019-04-20] MEDS ORDERED: CEFEPIME 2,000 MG/SWFI 20 ML IV PUSH IV SCH ×2 (18:30)
[2019-04-20 20:04] VITALS: BP 148/54
[2019-04-20] MEDS: LIDOCAINE PATCH REMOVAL TP SCH (21:00)
[2019-04-20] MEDS: HYDROCHLOROTHIAZIDE 25 MG (HCTZ) TAB PO SCH (21:20)
[2019-04-20] MEDS: ATORVASTATIN 40 MG (LIPITOR) TABLET PO SCH (21:20)
[2019-04-21] VITALS: BP 125/75
[2019-04-21 04:00] VITALS: BP 120/80
[2019-04-21 05:25] LABS: BASOPHILS # (AUTO) 0.1 10^3/uL (0.0-0.1); BASOPHILS % (AUTO) 1 % (0-10); EOSINOPHILS # (AUTO) 0.5 10^3/uL (0.0-0.3); EOSINOPHILS % (AUTO) 9 % (0-10); HEMATOCRIT 30 % (35-52); HEMOGLOBIN 9.6 G/DL (11.5-16.0); LYMPHOCYTES # (AUTO) 1.6 X 10^3 (1.0-4.0); LYMPHOCYTES % (AUTO) 28 % (12-44); MEAN CORPUSCULAR HEMOGLOBIN 29 PG (25-34); MEAN CORPUSCULAR HGB CONC 32 G/DL (32-36); MEAN CORPUSCULAR VOLUME 91 FL (80-99); MEAN PLATELET VOLUME 9.2 FL (7.4-10.4); MONOCYTES # (AUTO) 0.2 X 10^3 (0.0-1.0); MONOCYTES % (AUTO) 4 % (0-12); NEUTROPHILS # (AUTO) 3.3 X 10^3 (1.8-7.8); NEUTROPHILS % (AUTO) 58 % (42-75); PLATELET COUNT 367 10^3/uL (130-400); WHITE BLOOD COUNT 5.7 10^3/uL (4.3-11.0)
[2019-04-21 05:47] LABS: BUN/CREATININE RATIO 14; CALCIUM 9.3 MG/DL (8.5-10.1); CARBON DIOXIDE 27 MMOL/L (21-32); CHLORIDE 103 MMOL/L (98-107); CREATININE SERUM 0.88 MG/DL (0.60-1.30); GFR ESTIMATED > 60; GLUCOSE 132 MG/DL (70-105); MAGNESIUM 2.1 MG/DL (1.8-2.4); PHOSPHORUS 5.1 MG/DL (2.3-4.7); POTASSIUM 4.1 MMOL/L (3.6-5.0); SODIUM 140 MMOL/L (135-145)
[2019-04-21] MEDS: CATHETER FLUSH 10 ML SYR IV SCH (06:25)
[2019-04-21] MEDS: LACTOBACILLUS ACIDOPHILUS (PROBIOTIC) CAPSULE PO SCH (06:25)
--- NOTE | 2019-04-21 06:54 | Pulmonary Progress Note ---
Sepsis Event Evaluation Height, Weight, BMI Height: 5'7.00" Weight: 168lbs. 11.8oz. 76.601420yh; 25.7 BMI Method:Stated Exam Exam Vital Signs Date Time Temp Pulse Resp B/P (MAP) Pulse Ox O2 Delivery O2 Flow Rate FiO2 04/21/19 04:00 97.8 63 16 120/80 (93) 94 Room Air 04/21/19 01:00 54 04/21/19 00:00 97.4 57 16 125/75 (92) 95 Room Air 04/20/19 20:04 97.9 60 18 148/54 (85) 96 Room Air 04/20/19 20:00 92 Room Air 04/20/19 19:00 66 04/20/19 16:05 98.9 76 20 131/74 (93) 95 Room Air 04/20/19 14:35 87 Room Air 04/20/19 12:52 94 04/20/19 12:50 99.1 67 18 136/73 (94) 67 Room Air 04/20/19 12:41 64 04/20/19 08:05 Room Air 04/20/19 08:00 Room Air 04/20/19 07:55 Room Air 04/20/19 07:40 98.4 61 20 118/80 (93) 96 Room Air 04/20/19 07:00 63 I & O 04/21/19 07:00 Intake Total 1540 ml Balance 1540 ml Height & Weight Height: 5'7.00" Weight: 168lbs. 11.8oz. 76.507471wd; 25.7 BMI Method:Stated General Appearance: No Apparent Distress, Anxious HEENT: PERRL/EOMI, Pharynx Normal Neck: Full Range of Motion, Non Tender, Supple Respiratory: No Accessory Muscle Use, No Respiratory Distress, Crackles, Decreased Breath Sounds Cardiovascular: Regular Rate, Rhythm, No JVD, No Murmur Capillary Refill: Less Than 3 Seconds Peripheral Pulses: 2+ Dorsalis Pedis (R), 2+ Left Dors-Pedis (L), 2+ Radial Pulses (R), 2+ Radial Pulses (L) Gastrointestinal: normal bowel sounds, non tender, soft Extremity: Normal Capillary Refill Neurologic/Psychiatric: Alert, Oriented x3 Skin: Normal Color, Warm/Dry Lymphatic: No Adenopathy Results Lab Laboratory Tests 04/20/19 04:40 04/21/19 04:40 Assessment/Plan Assessment/Plan bibasilar PNA with parapneumonic exudative left pleural effusion -s/p repeat L thoracentesis yesterday 350cc drained -Failed out pt treatment with Levaquin -SVNs -Cefepime -Cultures are negative thus far. Atelectasis -Start IS Anemia -Monitor FLORINA -Treated with CPAP therapy Hx of lung lung nodule RLL stable since 2013 HX RUL calcified granuloma ROLANDA YOST DO Apr 21, 2019 06:53
[2019-04-21] MEDS: RT-ALBUTEROL/IPRATROPIUM 3 ML (DUONEB) VIAL INH SCH (07:19)
[2019-04-21] MEDS: POTASSIUM CL 10MEQ/50ML IVPB 50 ML IV SCH (07:48)
[2019-04-21] MEDS: MAGNESIUM 1 GM/100 ML IVPB 100 ML IV SCH (07:49)
[2019-04-21 08:00] VITALS: BP 118/57
[2019-04-21] MEDS: ETODOLAC 300 MG (LODINE) CAP PO SCH (08:06)
[2019-04-21] MEDS: SENNA W/DOCUSATE (SENOKOT S) TABLET PO SCH (08:07)
[2019-04-21] MEDS: MAGNESIUM OXIDE (MAG-OX)400 MG TAB PO SCH (08:07)
[2019-04-21] MEDS ORDERED: CEFD300C3 PO (11:22)
--- NOTE | 2019-04-21 11:24 | Discharge Inst-Simple/Standard ---
Discharge Inst-Standard Discharge Medications New, Converted or Re-Newed RX: Transmitted to Pharmacy Patient Instructions/Follow Up Plan of Care/Instructions/FU: Take medications as prescribed. Follow up with Dr. Zapien in two weeks. Establish with new PCP KEVIN. Activity as Tolerated: Yes Discharge Diet: No Restrictions Return to The Hospital For: fever, chest pain, dyspnea, or if you feel like you are getting worse. APRYL JAVED MD Apr 21, 2019 11:24
--- NOTE | 2019-04-21 11:24 | Diagnostic Imaging Report ---
INDICATION: Pneumonia. TECHNIQUE: Two view chest at 8:47 AM. CORRELATION STUDY: 04/20/2019. FINDINGS: The heart size, mediastinal configuration, and pulmonary vasculature are within normal limits. There is a small left pleural effusion. Patchy areas of atelectasis and/or infiltrate in both lung bases persist. The dense calcified granuloma in the central right lung is stable. IMPRESSION: Small left pleural effusion with bibasilar areas of atelectasis and/or infiltrate. Dictated by: Dictated on workstation # [id number]
--- NOTE | 2019-04-21 11:35 | Discharge Summary ---
Diagnosis/Chief Complaint Date of Admission Apr 16, 2019 at 15:55 Date of Discharge Discharge Date: Apr 21, 2019 Admission Diagnosis Pneumonia Discharge Diagnosis Community acquired pneumonia with simple parapneumonic effusion (1) Bilateral pneumonia Status: Acute (2) Pleural effusion on left Status: Acute (3) Anemia Status: Acute Discharge Summary Procedures/Consulations Consults: Pulmonology Procedures: Thoracentesis x 2 Discharge Physical Exam Allergies: Coded Allergies: No Known Drug Allergies (Unverified , 04/16/19) Vitals & I&Os Vital Signs Date Time Temp Pulse Resp B/P (MAP) Pulse Ox O2 Delivery O2 Flow Rate FiO2 04/21/19 12:30 04/21/19 08:07 Room Air 04/21/19 08:00 97.7 69 16 91 04/19/19 21:03 2.00 04/19/19 07:50 21 General Appearance: No Apparent Distress, WD/WN HEENT: PERRL/EOMI, Pharynx Normal Respiratory: No Respiratory Distress, Crackles Cardiovascular: Regular Rate, Rhythm, No Murmur Gastrointestinal: Normal Bowel Sounds, Non Tender, Soft Extremity: Normal Inspection, No Pedal Edema Skin: Normal Color, Warm/Dry Neurologic/Psychiatric: Alert; No Disoriented Hospital Course Carissa Peña is a 73yoF who was admitted with pneumonia. She had been on Levaquin outpatient but had failed this antibiotic. She was treated with Cefepime while inpatient. She had bilateral pleural effusions with left greater than right. A thoracentesis was performed and gram stain and culture were negative. Her symptoms again worsened while in the hospital and repeat imaging showed reaccumulation of the fluid. Another thoracentesis was performed and gram stain and culture were again negative. She was transitioned to [facility] and discharged home. She will follow up in Dr. Zapien's clinic in two weeks. She plans to establish with a new primary care provider as soon as possible. Labs (last 24 hrs) Laboratory Tests 04/20/19 15:30: Body Fluid Source PLEURAL, Body Fluid Color YELLOW, Body Fluid Appearance MOD CLDY, Body Fluid pH 7.3, Body Fluid WBC 2700, Body Fluid RBC 2200, Body Fluid Polynuclear WBCs 82, Body Fluid Mononuclear WBCs 0, Body Fluid Lymphocytes 7, Body Fluid Other Cells 11, Body Fluid Glucose 121, Body Fluid Total Protein 4.1, Body Fluid Lactate Dehydrogenase 236 8/6/19 04:40: White Blood Count 5.7, Red Blood Count 3.31L, Hemoglobin 9.6L, Hematocrit 30L, Mean Corpuscular Volume 91, Mean Corpuscular Hemoglobin 29, Mean Corpuscular Hemoglobin Concent 32, Red Cell Distribution Width 14.0, Platelet Count 367, Mean Platelet Volume 9.2, Neutrophils (%) (Auto) 58, Lymphocytes (%) (Auto) 28, Monocytes (%) (Auto) 4, Eosinophils (%) (Auto) 9, Basophils (%) (Auto) 1, Neutrophils # (Auto) 3.3, Lymphocytes # (Auto) 1.6, Monocytes # (Auto) 0.2, Eosinophils # (Auto) 0.5H, Basophils # (Auto) 0.1, Sodium Level 140, Potassium Level 4.1, Chloride Level 103, Carbon Dioxide Level 27, Anion Gap 10, Blood Urea Nitrogen 12, Creatinine 0.88, Estimat Glomerular Filtration Rate > 60, BUN /Creatinine Ratio 14, Glucose Level 132H, Calcium Level 9.3, Phosphorus Level 5.1H, Magnesium Level 2.1 Microbiology 04/16/19 Blood Culture - Preliminary, Resulted No growth 04/17/19 Gram Stain - Final, Complete 04/17/19 Body Fluid Culture - Final, Complete No growth 04/16/19 MRSA Screen - Final, Complete MRSA not isolated Patient resulted labs reviewed. Pending Labs Imaging: Reviewed Imaging Films, Reviewed Imaging Report Discussion & Recommendations Discharge Planning: <30 minutes discharge planning Discharge Home Medications: Active Scripts Active Cefdinir 300 Mg Capsule 300 Mg PO BID 5 Days Reported [Berberine] 1 Cap PO BID Pantoprazole Sodium 40 Mg Tablet.dr 40 Mg PO DAILY PRN Ventolin Hfa (Albuterol Sulfate) 18 Gm Hfa.aer.ad 1-2 Puff INH Q6H PRN Atorvastatin Calcium 40 Mg Tablet 40 Mg PO HS Hydrocodone-Acetamin 5-325 mg (Hydrocodone/Acetaminophen) 1 Each Tablet 1 Tab PO Q6H PRN Magnesium (Magnesium Oxide) 400 Mg Tablet 400 Mg PO QID Vitamin D3 (Cholecalciferol (Vitamin D3)) 1,000 Unit Capsule 1,000 Unit PO BID Diclofenac Sodium 75 Mg Tablet.dr 75 Mg PO BID Gabapentin 300 Mg Capsule 300 Mg PO TID Hydrochlorothiazide 25 Mg Tablet 25 Mg PO HS Condition at discharge Stable Instructions to patient/family Please see electronic discharge instructions given to patient. Clinical Quality Measures AMI/AHF: ASA po Prior to arrival: No DVT/VTE Risk/Contraindication: Risk Factor Score Per Nursin RFS Level Per Nursing on Admit: 2=Moderate Problem Qualifiers (1) Bilateral pneumonia: Pneumonia type: due to unspecified organism Lung location: unspecified part of lung Qualified Codes: J18.9 - Pneumonia, unspecified organism (2) Anemia: Iron deficiency anemia type: unspecified iron deficiency APRYL JAVED MD Apr 21, 2019 11:35
== END 2019-04-21 12:45 | disposition home or self-care (01) | DRG 194 ==
LOC: EDUNIT# 13:50 → ER 13:51 → ICU 15:55 → 4TH 04-17 13:06
PROVIDERS: ADMIT Family Medicine; ATTEND Internal Medicine
PROC: 0W9B3ZZ Drainage of Left Pleural Cavity, Percutaneous Approach (ICD-10-PCS; principal; 2019-04-17)
DX: J18.9 Pneumonia, unspecified organism (principal); J91.8 Pleural effusion in other conditions classified elsewhere; I31.3 Pericardial effusion (noninflammatory); J98.11 Atelectasis; I10 Essential (primary) hypertension; R09.02 Hypoxemia; G47.33 Obstructive sleep apnea (adult) (pediatric); Z66 Do not resuscitate; R91.1 Solitary pulmonary nodule; J98.4 Other disorders of lung; E11.9 Type 2 diabetes mellitus without complications; E78.00 Pure hypercholesterolemia, unspecified; D64.9 Anemia, unspecified; G25.81 Restless legs syndrome; M19.91 Primary osteoarthritis, unspecified site; F41.9 Anxiety disorder, unspecified; K59.00 Constipation, unspecified
CPT/HCPCS: 36415; 71045; 71046; 71260; 71275; 76604; 80048; 80053; 82150; 82728; 82945; 83540; 83605; 83615; 83690; 83735; 83874; 83880; 83986; 84100; 84157; 84484; 85007; 85025; 85027; 85610; 85730; 87040; 87070; 87081; 87205; 88112; 88305; 89051; 93005; 93041; 93306; 94640; 94664; 94760; 96365; 96375

== ENCOUNTER → 2019-04-23 | Outpatient (CLI) | payer MEDICARE, OTHER ==
[~2019-04-23] MED LIST: ALBU18HF2 INH; ATOR10TA66 PO; ATOR40TA70 PO; BERBERINE PO; CEFD300C3 PO; CHOL10007 PO; CHOL10008 PO; DICL75TA2 PO; GABA-488 PO; HYDR-3812 PO; HYDR25TA4 PO; MAGN250T2 PO; MAGN400T39 PO; PANT40TA3 PO; RED600TA PO; UBID100C17 PO
[2019-04-23 14:43] LABS: BASOPHILS # (AUTO) 0.1 10^3/uL (0.0-0.1); BASOPHILS % (AUTO) 1 % (0-10); EOSINOPHILS # (AUTO) 0.6 10^3/uL (0.0-0.3); EOSINOPHILS % (AUTO) 8 % (0-10); HEMATOCRIT 34 % (35-52); HEMOGLOBIN 10.6 G/DL (11.5-16.0); LYMPHOCYTES # (AUTO) 1.7 X 10^3 (1.0-4.0); LYMPHOCYTES % (AUTO) 24 % (12-44); MEAN CORPUSCULAR HEMOGLOBIN 29 PG (25-34); MEAN CORPUSCULAR HGB CONC 32 G/DL (32-36); MEAN CORPUSCULAR VOLUME 91 FL (80-99); MEAN PLATELET VOLUME 8.6 FL (7.4-10.4); MONOCYTES # (AUTO) 0.3 X 10^3 (0.0-1.0); MONOCYTES % (AUTO) 4 % (0-12); NEUTROPHILS # (AUTO) 4.7 X 10^3 (1.8-7.8); NEUTROPHILS % (AUTO) 64 % (42-75); PLATELET COUNT 375 10^3/uL (130-400); WHITE BLOOD COUNT 7.4 10^3/uL (4.3-11.0)
[2019-04-23 15:04] LABS: ALANINE AMINOTRANSFERASE 24 U/L (0-55); ALBUMIN 3.8 GM/DL (3.2-4.5); ALKALINE PHOSPHATASE 33 U/L (40-136); BILIRUBIN,TOTAL 0.3 MG/DL (0.1-1.0); BUN/CREATININE RATIO 15; CARBON DIOXIDE 26 MMOL/L (21-32); CHLORIDE 102 MMOL/L (98-107); CREATININE SERUM 0.86 MG/DL (0.60-1.30); GFR ESTIMATED > 60; GLUCOSE 78 MG/DL (70-105); POTASSIUM 3.9 MMOL/L (3.6-5.0); SODIUM 139 MMOL/L (135-145); TOTAL PROTEIN 7.3 GM/DL (6.4-8.2)
--- NOTE | 2019-04-23 17:59 | Diagnostic Imaging Report ---
INDICATION: Shortness of breath. TIME OF EXAM: 2:44 p.m. COMPARISON: Correlation is made with prior study from 04/21/2019. FINDINGS: The heart size is stable. There has been improved aeration to the left base when compared with prior study. There is some residual infiltrate and pleural fluid in the left base. Calcified granuloma in the right upper lobe is again noted. There is some minimal residual atelectasis or infiltrate in the right base. No pneumothorax is seen. IMPRESSION: Overall improved appearance to the chest when compared with examination two days earlier. Dictated by: Dictated on workstation # [id number]
== END ==
LOC: RT 14:22
PROVIDERS: ATTEND Internal Medicine Critical Care Medicine
DX: J90 Pleural effusion, not elsewhere classified (principal); J18.8 Other pneumonia, unspecified organism
CPT/HCPCS: 36415; 71046; 80053; 83880; 85025

== ENCOUNTER → 2019-04-27 | Outpatient (CLI) | payer MEDICARE, OTHER ==
[~2019-04-27] MED LIST changes: +HOLD METFORMIN - RECEIVED CONTRAST 20 ML VIAL IV SCH; +IOHEXOL 350 MG/ML 100 ML (OMNIPAQUE 350) VIAL IV ONE; +NS 100 ML (IVPB) BAG IV ONE
[2019-04-27 10:23] LABS: BASOPHILS % (AUTO) 0 % (0-10); EOSINOPHILS # (AUTO) 0.4 10^3/uL (0.0-0.3); EOSINOPHILS % (AUTO) 5 % (0-10); HEMATOCRIT 33 % (35-52); HEMOGLOBIN 10.3 G/DL (11.5-16.0); LYMPHOCYTES # (AUTO) 1.6 X 10^3 (1.0-4.0); LYMPHOCYTES % (AUTO) 20 % (12-44); MEAN CORPUSCULAR HEMOGLOBIN 29 PG (25-34); MEAN CORPUSCULAR HGB CONC 32 G/DL (32-36); MEAN CORPUSCULAR VOLUME 91 FL (80-99); MEAN PLATELET VOLUME 8.8 FL (7.4-10.4); MONOCYTES # (AUTO) 0.4 X 10^3 (0.0-1.0); MONOCYTES % (AUTO) 5 % (0-12); NEUTROPHILS # (AUTO) 5.9 X 10^3 (1.8-7.8); NEUTROPHILS % (AUTO) 70 % (42-75); PLATELET COUNT 371 10^3/uL (130-400); RED CELL DISTRIBUTION WIDTH 14.1 % (10.0-14.5); WHITE BLOOD COUNT 8.4 10^3/uL (4.3-11.0)
[2019-04-27 10:36] LABS: ALBUMIN 3.7 GM/DL (3.2-4.5); BILIRUBIN,TOTAL 0.4 MG/DL (0.1-1.0); CALCIUM 9.4 MG/DL (8.5-10.1); CREATININE SERUM 1.38 MG/DL (0.60-1.30); POTASSIUM 3.7 MMOL/L (3.6-5.0)
--- NOTE | 2019-04-27 10:42 | Diagnostic Imaging Report ---
PROCEDURE: CT chest with contrast only. TECHNIQUE: Multiple contiguous axial images were obtained through the chest after administration of intravenous contrast. Auto Exposure Controls were utilized during the CT exam to meet ALARA standards for radiation dose reduction. INDICATION: Pneumonia. FINDINGS: Comparison is 04/20/2019. There is persistent atelectasis of the left lower lobe. A moderate-sized left pleural effusion is decreased in size. There is no pleural enhancement to indicate empyema. There is a tiny right pleural effusion with overlying atelectasis, similar to previous exam. The collapsed lung enhances normally indicating simple atelectasis rather than pneumonia. There is mild pericardial thickening which has increased from prior exam. The left ventricle is mildly dilated. Aorta is normal in caliber. No axillary, supraclavicular or mediastinal lymphadenopathy. Gallbladder is absent. The upper abdomen is otherwise normal. There are no suspicious osseous lesions. IMPRESSION: 1. Decrease in size of moderate-sized left pleural effusion with overlying atelectasis. 2. Stable tiny right pleural effusion with overlying atelectasis. 3. Mild increase in pericardial thickening. Dictated by: Dictated on workstation # [id number]
== END ==
LOC: RAD 09:46
PROVIDERS: ATTEND Internal Medicine Critical Care Medicine
DX: J18.9 Pneumonia, unspecified organism (principal); J90 Pleural effusion, not elsewhere classified; J98.11 Atelectasis; R91.1 Solitary pulmonary nodule; I31.8 Other specified diseases of pericardium; R50.9 Fever, unspecified; Z90.49 Acquired absence of other specified parts of digestive tract; Z98.890 Other specified postprocedural states; Z99.81 Dependence on supplemental oxygen
CPT/HCPCS: 36415; 71260; 80053; 85025

== ENCOUNTER → 2019-06-23 | Outpatient (CLI) | payer MEDICARE, OTHER ==
[~2019-06-23] MED LIST changes: -HOLD METFORMIN - RECEIVED CONTRAST 20 ML VIAL IV SCH; -IOHEXOL 350 MG/ML 100 ML (OMNIPAQUE 350) VIAL IV ONE; -NS 100 ML (IVPB) BAG IV ONE
[2019-06-23 10:10] LABS: CREATININE SERUM 1.38 MG/DL (0.60-1.30)
--- NOTE | 2019-06-23 12:41 | Diagnostic Imaging Report ---
PROCEDURE: CT chest without contrast. TECHNIQUE: Multiple contiguous axial images were obtained through the chest without the use of intravenous contrast. Auto Exposure Controls were utilized during the CT exam to meet ALARA standards for radiation dose reduction. INDICATION: Pneumonia. FINDINGS: The previous CT chest exam performed on 04/27/2019 noted bibasilar pneumonia/atelectasis and bilateral pleural effusions. There also appeared to be a small pericardial effusion and/or thickening. On this study, both lungs are much better aerated. There is only minimal residual scar formation/fibrosis in the right lung base. There is no sign of failure, pneumonia, or pleural effusion to indicate an acute abnormality. The pericardial thickening/fluid also appears to have resolved. The calcified granuloma in the right upper lung seen previously is again evident and unchanged. The heart is stable in size. Coronary artery calcifications are again evident. The aorta is not abnormally dilated. There is no obvious mediastinal or hilar adenopathy. The thyroid gland is generally unremarkable. There is no sign of a breast mass. According to our records, the patient has not had a mammogram. If the patient has had a recent (within the last year) mammogram elsewhere, then no further imaging would be necessary. Otherwise, mammography would be recommended for further study. The sections through the upper abdomen fail to show any sign of an acute abnormality. As noted previously, the gallbladder is surgically absent. The bone windows show no sign of a fracture or of a destructive lesion. IMPRESSION: 1. The appearance of the chest has improved considerably since the prior exam as both lung bases are much better aerated. The pericardial fluid/thickening seen previously has also essentially resolved. There is no evidence for an acute abnormality at this time. 2. There is no obvious breast mass. Recommendations as above. Dictated by: Dictated on workstation # [id number]
== END ==
LOC: RAD 09:40
PROVIDERS: ATTEND Nurse Practitioner Family
DX: J90 Pleural effusion, not elsewhere classified (principal); J84.10 Pulmonary fibrosis, unspecified; G47.33 Obstructive sleep apnea (adult) (pediatric); R91.1 Solitary pulmonary nodule; R09.1 Pleurisy; Z98.890 Other specified postprocedural states; Z90.49 Acquired absence of other specified parts of digestive tract
CPT/HCPCS: 36415; 71250; 82565; 84520

== ENCOUNTER 2019-09-12 09:14 | Emergency (ER) | payer MEDICARE, OTHER ==
[~2019-09-12] VITALS: Ht 170.8 cm; Wt 75.0 kg
--- NOTE | 2019-09-12 10:19 | ED Cough/URI ---
General Chief Complaint: Cough/Cold/Flu Symptoms Stated Complaint: COUGH / SORE THROAT Nursing Triage Note: started really bad sore throat last saturday with onset of chills saturday lost voice wens and in april was hospitalized 6 days for pneumonia Sepsis Screen: No Definite Risk Source: patient Exam Limitations: no limitations History of Present Illness Date Seen by Provider: Sep 12, 2019 Time Seen by Provider: 10:00 Initial Comments Patient resents to ER by private conveyance with chief complaint 6 days of cough, watery eyes, congestion, ear pressure. She says she's had no fevers. She's been using [id number] cough and cold remedies, NyQuil, cough drops with no relief. She's concerned because in April, 4 months ago she had to be hospitalized for 4 days for pneumonia. She does not have a history of lung disease nor does she smoke. Her cough is sometimes productive. No chest pain, fever, chills, nausea, vomiting or diarrhea. Allergies and Home Medications Allergies Coded Allergies: No Known Drug Allergies (Unverified , 04/16/19) Home Medications Albuterol Sulfate 18 Gm Hfa.aer.ad, 1-2 PUFF INH Q6H PRN for SHORTNESS OF BREATH, (Reported) Atorvastatin Calcium 40 Mg Tablet, 40 MG PO HS, (Reported) Cefdinir 300 Mg Capsule, 300 MG PO BID Prescribed by: APRYL JAVED on 04/21/19 1122 Cholecalciferol (Vitamin D3) 1,000 Unit Capsule, 1,000 UNIT PO BID, (Reported) Diclofenac Sodium 75 Mg Tablet.dr, 75 MG PO BID, (Reported) Gabapentin 300 Mg Capsule, 300 MG PO TID, (Reported) Hydrochlorothiazide 25 Mg Tablet, 25 MG PO HS, (Reported) Hydrocodone/Acetaminophen 1 Each Tablet, 1 TAB PO Q6H PRN for PAIN-MODERATE, (Reported) Magnesium Oxide 400 Mg Tablet, 400 MG PO QID, (Reported) Pantoprazole Sodium 40 Mg Tablet.dr, 40 MG PO DAILY PRN for HEARTBURN, (Reported) [Berberine] , 1 CAP PO BID, (Reported) Patient Home Medication List Home Medication List Reviewed: Yes Review of Systems Review of Systems Constitutional: No chills, No fever; malaise EENTM: No ear discharge, No hearing loss Respiratory: cough, phlegm; No short of breath, No wheezing Cardiovascular: No chest pain, No edema Gastrointestinal: No abdominal pain, No nausea, No vomiting Genitourinary: No discharge, No dysuria Musculoskeletal: No back pain, No joint pain Skin: No pruritus, No rash Psychiatric/Neurological: Denies Headache, Denies Numbness Past Gixrdlu-Pbjhos-Wxrgve Hx Patient Social History Alcohol Use: Denies Use Number of Drinks Today: Alcohol Beverage of Choice: Wine Recreational Drug Use: No Smoking Status: Former Smoker Type Used: Cigarettes Former Smoker, Quit: Apr 17, 1989 2nd Hand Smoke Exposure: Yes Recent Foreign Travel: No Contact w/Someone Who Travel: No Recent Infectious Disease Expo: No Recent Hopitalizations: Yes ([facility] for heart [facility]) Immunizations Up To Date Tetanus Booster (TDap): Unknown PED Vaccines UTD: No Seasonal Allergies Seasonal Allergies: No Past Medical History Surgeries: Yes (CARDIAC CATH 03/2019 AT [place], NORMAL PER PT ) Gallbladder, Hysterectomy, Tonsillectomy Respiratory: Yes Pneumonia, Sleep Apnea Currently Using CPAP: Yes Cardiac: Yes High Cholesterol, Hypertension Neurological: No : No Reproductive Disorders: No Female Reproductive Disorders: Endometriosis [employer] History: Hysterectomy, Menopausal Genitourinary: No Gastrointestinal: No Musculoskeletal: Yes Arthritis Endocrine: No HEENT: No Cancer: No Psychosocial: Yes Anxiety Integumentary: No Blood Disorders: No Family Medical History Cardiovascular disease G8 SISTER, Onset:60 years & older Cataracts G8 SISTER, Onset:60 years & older G8 SISTER, Onset:60 years & older Completed stroke 19 MOTHER, Onset:60 years & older FH: Crohn's disease 19 MOTHER, Onset:50's - 60 FH: bladder cancer 19 FATHER, Onset:60 years & older FH: leukemia 19 FATHER, Onset:60 years & older FH: prostate cancer 19 FATHER, Onset:60 years & older Heart Disease, Cancer, COPD, Hypertension Physical Exam Vital Signs - First Documented 09/12/19 09/12/19 09:47 09:55 Temp 36.8 Pulse 68 Resp 22 B/P (MAP) 195/73 (113) Pulse Ox 98 O2 Delivery Room Air Capillary Refill : Less Than 3 Seconds Height: 5'7.00" Weight: 168lbs. 11.8oz. 76.275844vq; 25.00 BMI Method:Stated General Appearance: WD/WN, no apparent distress Eyes: Bilateral Eye Normal Inspection, Bilateral Eye PERRL, Bilateral Eye EOMI HEENT: PERRL/EOMI, normal ENT inspection, TMs normal, pharynx normal Neck: full range of motion, normal inspection Respiratory: no respiratory distress, no accessory muscle use, crackles (few on the left side) Cardiovascular: normal peripheral pulses, regular rate, rhythm Neurologic/Psychiatric: alert, normal mood/affect, oriented x 3 Skin: normal color, warm/dry Lymphatic: other (bilateral anterior cervical lymphadenopathy, mild, shotty) Progress/Results/Core Measures Suspected Sepsis Recent Fever Within 48 Hours: No Infection Criteria Present: None New/Unexplained Altered Menta: No Sepsis Screen: No Definite Risk SIRS Temperature: Pulse: 68 Respiratory Rate: 22 Laboratory Tests 09/12/19 10:46: White Blood Count 7.4 Blood Pressure 195 /73 Mean: 113 Laboratory Tests 09/12/19 10:46: Creatinine 2.96H, Platelet Count 289, Total Bilirubin 0.3 Results/Orders Lab Results Laboratory Tests Test 09/12/19 10:46 Range/Units White Blood Count 7.4 4.3-11.0 10^3/uL Red Blood Count 3.39 L 4.35-5.85 10^6/uL Hemoglobin 9.9 L 11.5-16.0 G/DL Hematocrit 31 L 35-52 % Mean Corpuscular Volume 91 80-99 FL Mean Corpuscular Hemoglobin 29 25-34 PG Mean Corpuscular Hemoglobin Concent 32 32-36 G/DL Red Cell Distribution Width 14.4 10.0-14.5 % Platelet Count 289 130-400 10^3/uL Mean Platelet Volume 9.3 7.4-10.4 FL Neutrophils (%) (Auto) 70 42-75 % Lymphocytes (%) (Auto) 22 12-44 % Monocytes (%) (Auto) 5 0-12 % Eosinophils (%) (Auto) 2 0-10 % Basophils (%) (Auto) 0 0-10 % Neutrophils # (Auto) 5.2 1.8-7.8 X 10^3 Lymphocytes # (Auto) 1.6 1.0-4.0 X 10^3 Monocytes # (Auto) 0.4 0.0-1.0 X 10^3 Eosinophils # (Auto) 0.2 0.0-0.3 10^3/uL Basophils # (Auto) 0.0 0.0-0.1 10^3/uL Sodium Level 141 135-145 MMOL/L Potassium Level 4.5 3.6-5.0 MMOL/L Chloride Level 106 98-107 MMOL/L Carbon Dioxide Level 24 21-32 MMOL/L Anion Gap 11 5-14 MMOL/L Blood Urea Nitrogen 34 H 7-18 MG/DL Creatinine 2.96 H 0.60-1.30 MG/DL Estimat Glomerular Filtration Rate 16 BUN/Creatinine Ratio 11 Glucose Level 87 70-105 MG/DL Calcium Level 8.9 8.5-10.1 MG/DL Corrected Calcium 8.9 8.5-10.1 MG/DL Total Bilirubin 0.3 0.1-1.0 MG/DL Aspartate Amino Transf (AST/SGOT) 16 5-34 U/L Alanine Aminotransferase (ALT/SGPT) 17 0-55 U/L Alkaline Phosphatase 26 L 40-136 U/L C-Reactive Protein High Sensitivity 2.85 H 0.00-0.50 MG/DL Total Protein 6.7 6.4-8.2 GM/DL Albumin 4.0 3.2-4.5 GM/DL Micro Results Microbiology 09/12/19 Influenza Types A,B Antigen (BUTCH) - Final, Complete My Orders Orders - VIRY NAJERA Influenza A And B Antigens (09/12/19 09:59) Cbc With Automated Diff (09/12/19 10:12) Hs C Reactive Protein (09/12/19 10:12) Comprehensive Metabolic Panel (09/12/19 10:12) Chest Pa/Lat (2 View) (09/12/19 10:12) Vital Signs/I&O 09/12/19 09/12/19 09:47 09:55 Temp 36.8 Pulse 68 Resp 22 B/P (MAP) 195/73 (113) Pulse Ox 98 O2 Delivery Room Air Capillary Refill : Less Than 3 Seconds Blood Pressure Mean: 113 Progress Note #1: Time: 10:20 Progress Note Will have lab draw CBC, CRP and CMP as well as get a chest x-ray. Flu swab has been obtained. Most of this seems to be upper respiratory however with her crackles this could be from atelectasis or pneumonia Progress Note #2: Time: 13:31 Progress Note Patient's feeling fine. Normal vital signs. No oxygen supplementally. We discussed her elevated creatinine and while this is new probably because she is currently dry. Up to do IV fluids versus oral fluids. She is tolerating oral fluids she like to try that. She's having no nausea vomiting or diarrhea. We'll allow her to follow up next week with primary care. Diagnostic Imaging Diagonstic Imaging: Xray Plain Films/CT/US/NM/MRI: chest (1v) Comments [facility]. [place], [place] NAME: MARCIE FERNANDEZ [facility] REC#: [id number] PT STATUS: REG ER : 1945 PHYSICIAN: VIRY NAJERA MD ADMIT DATE: 09/12/19/ER Draft Date of Exam:09/12/19 CHEST PA/LAT (2 VIEW) INDICATION: Cough and shortness of breath. TIME OF EXAM: 11:01 AM Correlation is made with prior chest from 04/23/2019. FINDINGS: Heart size normal. Density in he right upper chest is stable to slightly smaller when compared with prior exam. No new opacity is seen. No infiltrate is identified. There is no effusion or pneumothorax. IMPRESSION: No acute cardiopulmonary process is detected. Dictated on workstation # [id number] Dict: 09/12/19 1109 Trans: 09/12/19 1117 [id number] Interpreted by: DEONNA JUAREZ MD Electronically signed by: Reviewed: Reviewed by Me Departure Impression Primary Impression: Upper respiratory infection Qualified Codes: J06.9 - Acute upper respiratory infection, unspecified Additional Impressions: Dehydration Elevated serum creatinine Disposition: HOME, SELF-CARE Condition: Stable Departure-Patient Inst. Decision time for Depature: 13:32 Referrals: FABIANA CASTELLANOS MD (PCP/Family) Primary Care Physician Patient Instructions: Dehydration, Adult (DC), Viral Upper Respiratory Infection, Adult (DC) Add. Discharge Instructions: Drink lots of fluids. Follow-up with your primary care provider next week. Return to the ER if you are feeling worse, shortness of breath or chest pain. All discharge instructions reviewed with patient and/or family. Voiced understanding. Copy Copies To 1: FABIANA CASTELLANOS MD, TITUS J Sep 12, 2019 10:19
[2019-09-12 10:55] LABS: BASOPHILS % (AUTO) 0 % (0-10); EOSINOPHILS # (AUTO) 0.2 10^3/uL (0.0-0.3); EOSINOPHILS % (AUTO) 2 % (0-10); HEMATOCRIT 31 % (35-52); HEMOGLOBIN 9.9 G/DL (11.5-16.0); LYMPHOCYTES # (AUTO) 1.6 X 10^3 (1.0-4.0); LYMPHOCYTES % (AUTO) 22 % (12-44); MEAN CORPUSCULAR HEMOGLOBIN 29 PG (25-34); MEAN CORPUSCULAR HGB CONC 32 G/DL (32-36); MEAN CORPUSCULAR VOLUME 91 FL (80-99); MEAN PLATELET VOLUME 9.3 FL (7.4-10.4); MONOCYTES # (AUTO) 0.4 X 10^3 (0.0-1.0); MONOCYTES % (AUTO) 5 % (0-12); NEUTROPHILS # (AUTO) 5.2 X 10^3 (1.8-7.8); NEUTROPHILS % (AUTO) 70 % (42-75); PLATELET COUNT 289 10^3/uL (130-400); RED CELL DISTRIBUTION WIDTH 14.4 % (10.0-14.5); WHITE BLOOD COUNT 7.4 10^3/uL (4.3-11.0)
[2019-09-12 11:16] LABS: BILIRUBIN,TOTAL 0.3 MG/DL (0.1-1.0); CALCIUM 8.9 MG/DL (8.5-10.1); CREATININE SERUM 2.96 MG/DL (0.60-1.30); POTASSIUM 4.5 MMOL/L (3.6-5.0); TOTAL PROTEIN 6.7 GM/DL (6.4-8.2)
--- NOTE | 2019-09-12 11:18 | Diagnostic Imaging Report ---
INDICATION: Cough and shortness of breath. TIME OF EXAM: 11:01 AM Correlation is made with prior chest from 04/23/2019. FINDINGS: Heart size normal. Density in he right upper chest is stable to slightly smaller when compared with prior exam. No new opacity is seen. No infiltrate is identified. There is no effusion or pneumothorax. IMPRESSION: No acute cardiopulmonary process is detected. Dictated by: Dictated on workstation # [id number]
[2019-09-12 13:35] VITALS: BP 195/73
== END 2019-09-12 13:35 | disposition home or self-care (01) ==
LOC: ER 09:14 → EDUNIT# 09:14 → ER 13:35
DX: J06.9 Acute upper respiratory infection, unspecified (principal); E86.0 Dehydration; R79.89 Other specified abnormal findings of blood chemistry; I10 Essential (primary) hypertension; E78.00 Pure hypercholesterolemia, unspecified; F41.9 Anxiety disorder, unspecified; G47.30 Sleep apnea, unspecified; Z99.89 Dependence on other enabling machines and devices; Z87.891 Personal history of nicotine dependence; Z77.22 Contact with and (suspected) exposure to environmental tobacco smoke (acute) (chronic); Z90.710 Acquired absence of both cervix and uterus; Z90.89 Acquired absence of other organs; Z82.49 Family history of ischemic heart disease and other diseases of the circulatory system; Z80.42 Family history of malignant neoplasm of prostate; Z80.52 Family history of malignant neoplasm of bladder
CPT/HCPCS: 36415; 71046; 80053; 85025; 86141; 87804

== ENCOUNTER → 2019-09-17 | Outpatient (CLI) | payer MEDICARE, OTHER ==
[2019-09-17 10:40] LABS: BILIRUBIN,URINE NEGATIVE (NEGATIVE); CLARITY,URINE CLEAR; COLOR,URINE YELLOW; GLUCOSE, URINE (UA) NEGATIVE (NEGATIVE); KETONES,URINE NEGATIVE (NEGATIVE); LEUKOCYTE ESTERASE ,URINE TRACE (NEGATIVE); NITRITE,URINE NEGATIVE (NEGATIVE); PROTEIN,URINE NEGATIVE (NEGATIVE)
[2019-09-17 11:01] LABS: ALANINE AMINOTRANSFERASE 13 U/L (0-55); ALBUMIN 4.6 GM/DL (3.2-4.5); ALKALINE PHOSPHATASE 30 U/L (40-136); BILIRUBIN,TOTAL 0.4 MG/DL (0.1-1.0); BUN/CREATININE RATIO 12; CALCIUM 10.1 MG/DL (8.5-10.1); CARBON DIOXIDE 24 MMOL/L (21-32); CHLORIDE 101 MMOL/L (98-107); CREATININE SERUM 2.66 MG/DL (0.60-1.30); GFR ESTIMATED 18; GLUCOSE 93 MG/DL (70-105); SODIUM 140 MMOL/L (135-145); TOTAL PROTEIN 7.7 GM/DL (6.4-8.2)
[2019-09-17 11:19] LABS: BACTERIA,URINE FEW /HPF; WBC,URINE RARE /HPF
== END ==
LOC: LAB 10:18
PROVIDERS: ATTEND Family Medicine
DX: N18.3 Chronic kidney disease, stage 3 (moderate) (principal)
CPT/HCPCS: 36415; 80053; 81000; 87088

== ENCOUNTER → 2021-04-28 | Outpatient (CLI) | payer MEDICARE, OTHER ==
[~2021-04-28] MED LIST changes: +ACHD5005 PO; -HYDR-3812 PO; -PANT40TA3 PO; +PANT40TA52 PO
--- NOTE | 2021-04-28 17:01 | Diagnostic Imaging Report ---
Indication: The follow-up of pulmonary nodule. Comparison with 09/12/2019. The lungs are well aerated. There are no acute infiltrates. There is a nodule in the right upper lung which has not changed in appearance since previous exam. This likely represents a calcified granuloma. Heart is not enlarged. No evidence of pulmonary edema. No hilar adenopathy. No pneumothorax or pleural effusion. No bony abnormalities. IMPRESSION: The nodule right upper lobe felt to represent calcified granuloma. No changes occurred since previous exam. Report faxed at 2:24 PM 04/28/2021/cb Dictated by: Dictated on workstation # [id number]
== END ==
LOC: RAD 10:16
PROVIDERS: ATTEND Nurse Practitioner Family
DX: R91.1 Solitary pulmonary nodule (principal)
CPT/HCPCS: 71046